=== PATIENT | male | born 1965 ===

== ENCOUNTER 2020-04-13 16:44 | Outpatient (REF) | payer OTHER, SELFPAY | END 2020-04-13 16:45 | disposition home or self-care (01) | LOC: HO.LAB 16:44 | PROVIDERS: PCP Internal Medicine; Visit Provider Internal Medicine | DX: Z20.828 Contact with and (suspected) exposure to other viral communicable diseases (principal) | CPT/HCPCS: C9803; U0003 ==

== ENCOUNTER 2020-10-16 08:07 | Outpatient (REF) | payer OTHER, SELFPAY ==
--- NOTE | ~2020-10-16 | XR_ITS ---
EXAMINATION: XR SHOULDER, RIGHT CLINICAL INFORMATION: Pain COMPARISON: Previous x-ray December 2016 TECHNIQUE: Three views of the right shoulder. FINDINGS: Bone alignment is normal. No fracture or dislocation is seen. The glenohumeral joint is normal. There is mild arthritis at the acromioclavicular joint. Soft tissues are unremarkable. XR/XR shoulder RT min 2V IMPRESSION: Mild arthritis at the acromioclavicular joint.
== END 2020-10-16 08:08 | disposition home or self-care (01) ==
LOC: HO.HOSX 08:07
PROVIDERS: Visit Provider Orthopaedic Surgery
DX: M75.101 Unspecified rotator cuff tear or rupture of right shoulder, not specified as traumatic (principal)
CPT/HCPCS: 73030; 99202

== ENCOUNTER 2020-11-27 02:54 | Emergency (ER) | payer OTHER, SELFPAY ==
[2020-11-27 04:07] VITALS: BP 113/67; PULSE 69; RESP 18; TEMP 37.1; O2SAT 100; BMI 23.9
[2020-11-27 05:48] LABS: MANUAL DIFF FLAG NO
[2020-11-27 05:50] LABS: Basophils Absolute Auto 0.1 X10*3/uL (0.0-0.2); Basophils Percent Auto 0.6 % (0-2); Eosinophils Absolute Auto 0.5 X10*3/uL (0.0-0.4); Eosinophils Percent Auto 5.5 % (0-4); Hematocrit 42.7 % (42-52); Hemoglobin 14.3 g/dl (14.0-18.0); Imm Gran Abs Auto 0.04 X10*3/uL (0.00-0.03); Imm Gran Pct Auto 0.5 % (0.0-0.4); Lymphocytes Absolute Auto 2.6 X10*3/uL (1.2-4.9); Lymphocytes Percent Auto 30.4 % (20-40); Mean Corpuscular HGB Conc 33.5 g/dl (31.0-36.0); Mean Corpuscular Hemoglobin 29.5 pg (27.0-33.0); Mean Platelet Volume 9.1 fL (9.4-12.4); Monocytes Absolute Auto 1.3 X10*3/uL (0.1-1.2); Monocytes Percent Auto 15.3 % (2-11); Neutrophils Absolute Auto 4.1 X10*3/uL (2.0-8.3); Neutrophils Percent Auto 47.7 % (45-73); Platelet Count 334 X10*3/uL (160-400); Red Blood Count 4.85 X10*6/uL (4.60-5.80); Red Cell Distribution Width 13.2 % (11.0-16.0); White Blood Count 8.6 X10*3/uL (4.8-10.8)
[2020-11-27 06:13] LABS: Alanine Aminotransferase 31 U/L (0-40); Albumin Level 4.3 g/dL (3.5-5.0); Alkaline Phosphatase 65 U/L (39-117); Anion Gap 12 (12-20); Aspartate Amino Transferase 13 U/L (5-37); Bilirubin Direct 0.3 mg/dL (0.0-0.5); Bilirubin Total 0.9 mg/dL (0.0-1.0); Blood Urea Nitrogen 14 mg/dL (9-16); Calcium 9.5 mg/dL (8.4-10.2); Carbon Dioxide 28 mmol/L (22-29); Chloride 102 mmol/L (96-108); Creatinine Clr Calc Pharmacy 94.1; Estimated Glomerular Filt Rate > 60; Glucose Random 93 mg/dL (60-115); Lipase 40 U/L (8-78); Potassium 4.3 mmol/L (3.3-5.1); Sodium 138 mmol/L (135-145); Total Protein 6.8 g/dL (6.5-8.0)
== END 2020-11-27 06:32 | disposition left against medical advice (07) ==
PROVIDERS: Emergency Provider Emergency Medicine; PCP Internal Medicine
DX: R10.9 Unspecified abdominal pain (principal)
CPT/HCPCS: 36415; 80053; 80076; 82248; 83690; 85025; 99282; 99283

== ENCOUNTER 2020-11-27 14:49 | Outpatient (REF) | payer OTHER, SELFPAY ==
--- NOTE | ~2020-11-27 | XR_ITS ---
EXAMINATION: XR ABDOMEN KUB CLINICAL INDICATION: Left upper quadrant pain COMPARISON: Previous CT of the abdomen and pelvis January 2020 TECHNIQUE: AP view of the abdomen. FINDINGS: There is stool throughout the colon suggestive of constipation. There are no dilated loops of bowel to suggest obstruction. There is no evidence of free air. There is a stable left pelvic calcification probably representing a calcified phlebolith or bony structures are unremarkable. XR/XR KUB IMPRESSION: Stool throughout the colon suggestive of constipation. Otherwise unremarkable exam.
== END 2020-11-27 14:50 | disposition home or self-care (01) ==
LOC: HO.XRAY 14:49
PROVIDERS: PCP Internal Medicine; Visit Provider Internal Medicine
DX: R10.12 Left upper quadrant pain (principal)
CPT/HCPCS: 74018

== ENCOUNTER 2020-12-26 07:55 | Outpatient (REF) | payer OTHER, SELFPAY ==
--- NOTE | ~2020-12-26 | CT_ITS ---
EXAMINATION: CT ABDOMEN AND PELVIS WITH CONTRAST CLINICAL INFORMATION: Left upper quadrant pain. COMPARISON: None TECHNIQUE: Multidetector volumetric images were obtained from the superior aspect of the liver through the pubic symphysis following administration 85 mL of Omnipaque 350 intravenous contrast. Sagittal and coronal reformatted images were obtained on the technologist's workstation. Oral contrast: No This CT examination was performed using dose optimization techniques as appropriate, variously including the following: *Automated exposure control *Adjustment of mA and/or kV according to patient size (this includes techniques or standardized protocols for targeted exams where dose is matched to indication/reason for exam; i.e. extremities or head) *Use of iterative reconstruction technique DLP: 418 mGy-cm FINDINGS: LUNG BASES: At the posterior right base, there is a tiny benign, calcified granuloma. The lung bases are otherwise clear. LIVER, GALLBLADDER, AND BILIARY TREE: The liver is normal in size, shape, and attenuation. No focal hepatic lesion or biliary ductal dilatation is present. The gallbladder is unremarkable with no evidence of radiopaque gallstones, gallbladder wall thickening, or obvious pericholecystic inflammatory changes. PANCREAS: Unremarkable. SPLEEN: Unremarkable. ADRENAL GLANDS: Unremarkable. KIDNEYS AND URETERS: The kidneys are normal in size, shape, and attenuation. No hydronephrosis, hydroureter, or calculi seen. There are low-attenuation bilateral renal cysts again seen. No perinephric stranding. BLADDER: There is slight dependent, layering intravenous contrast or debris (3:73). Otherwise, unremarkable. GASTROINTESTINAL TRACT: There is a moderate stool burden. No bowel obstruction, free intraperitoneal air or abscess is seen. There is no focal bowel wall thickening. The vermiform appendix is is not identified with certainty; however, there is no finding to suggest appendicitis. No significant diverticulosis or diverticulitis is seen. Within the leftward pelvis (5:45 and 3:71), there is a 1.1 cm peripherally calcified focus of probable chronic mesenteric fat necrosis. This is of doubtful clinical significance. ABDOMINAL WALL: No significant hernia is appreciated. LYMPH NODES: No sizable abdominopelvic lymphadenopathy is seen. VASCULAR: There is mild aortoiliac atherosclerotic calcifications. No abdominal aortic aneurysm is seen. PELVIC VISCERA: The prostate and seminal vesicles are unremarkable. OSSEOUS STRUCTURES: Unremarkable. CT/CT abdomen pelvis w con IMPRESSION: There is a moderate stool burden, suggesting possible constipation. No bowel obstruction, free intracranial air or abscess is seen. The vermiform appendix is not identified, there is no finding to suggest acute appendicitis. No diverticulosis or diverticulitis is seen. 2. No urinary calculus or obstructive uropathy seen bilaterally. 3. There is no abdominopelvic mass, free fluid or lymphadenopathy.
[2020-12-26] MEDS: iohexoL 350 MG/ML 100 ML INFUS..BTL 85 ML IV (10:28)
== END 2020-12-26 07:56 | disposition home or self-care (01) ==
LOC: HO.CT 07:55
PROVIDERS: Visit Provider Internal Medicine
DX: R10.12 Left upper quadrant pain (principal)
CPT/HCPCS: 74177; Q9967

== ENCOUNTER → 2021-01-01 08:01 | Outpatient (BNVA) | payer OTHER, SELFPAY | PROVIDERS: PCP Internal Medicine; Visit Provider Orthopaedic Surgery | DX: M25.511 Pain in right shoulder (principal); M75.101 Unspecified rotator cuff tear or rupture of right shoulder, not specified as traumatic | CPT/HCPCS: 20610; 99212; J1100 ==

== ENCOUNTER 2021-07-03 12:48 | Inpatient (IN) | payer OTHER, SELFPAY ==
--- NOTE | ~2021-07-03 | CT_ITS ---
EXAMINATION: CT ABDOMEN AND PELVIS WITH CONTRAST CLINICAL INFORMATION: Abdominal pain and distention COMPARISON: CT abdomen pelvis 12/26/2020 TECHNIQUE: Multidetector volumetric images were obtained from the superior aspect of the liver through the pubic symphysis following administration 85 mL of Omnipaque 350 intravenous contrast. Sagittal and coronal reformatted images were obtained on the technologist's workstation. Oral contrast: No This CT examination was performed using dose optimization techniques as appropriate, variously including the following: *Automated exposure control *Adjustment of mA and/or kV according to patient size (this includes techniques or standardized protocols for targeted exams where dose is matched to indication/reason for exam; i.e. extremities or head) *Use of iterative reconstruction technique DLP: 409 mGy-cm FINDINGS: LUNG BASES: The visualized lung bases are unremarkable. LIVER, GALLBLADDER, AND BILIARY TREE: The liver is normal in size, shape, and attenuation. Again seen is a 2 cm enhancing mass, unchanged from prior studies, most likely a hemangioma which has been seen on studies dating back to at least 2014. No worrisome focal hepatic lesion or biliary ductal dilatation is present. The gallbladder is unremarkable with no evidence of radiopaque gallstones, gallbladder wall thickening, or obvious pericholecystic inflammatory changes. PANCREAS: Unremarkable. SPLEEN: Unremarkable. ADRENAL GLANDS: Unremarkable. KIDNEYS AND URETERS: The kidneys are normal in size, shape, and attenuation. Bilateral renal cysts are present, unchanged. No further imaging or follow-up is needed. No solid renal masses. No hydronephrosis, hydroureter, or calculi seen. No perinephric stranding. BLADDER: Unremarkable. GASTROINTESTINAL TRACT: There is dilatation of proximal small bowel with completely decompressed distal. There appears to be a transition zone between dilated and nondilated small bowel seen anteriorly just behind the abdominal wall (see saved [place] images). The large bowel is unremarkable. The appendix is none seen. 2 foci of mesenteric fat necrosis are again redemonstrated. ABDOMINAL WALL: No significant hernia is appreciated. LYMPH NODES: No retroperitoneal lymphadenopathy. VASCULAR: Unremarkable. PELVIC VISCERA: Unremarkable. OSSEOUS STRUCTURES: Unremarkable. CT/CT abdomen pelvis w con IMPRESSION: Evidence of small bowel obstruction with a transition zone appearing to be in the mid abdomen just the abdominal wall but a precise lesion or abnormality is not seen. Continued follow-up is recommended. No other finding of note is seen. Fleischner guidelines were followed.
--- NOTE | ~2021-07-03 | XR_ITS ---
EXAMINATION: XR CHEST CLINICAL INFORMATION: Enteric tube placement. COMPARISON: Chest radiograph dated from 10/21/2016. TECHNIQUE: AP view of the chest was obtained. FINDINGS: Enteric tube courses into the stomach and terminates outside of the field of view. Normal appearance of the cardiomediastinal silhouette. Increase interstitial markings bilaterally, more noticeable in the lower lungs. No focal consolidation, pleural effusion or pneumothorax. No acute osseous abnormalities. Visualized upper abdomen is within normal limits. XR/XR chest 1V IMPRESSION: Enteric tube courses into the stomach and terminates outside of the field of view. Increased interstitial markings is a nonspecific finding that could be associated with asthma, bronchitis, reactive airways disease or atypical viral infections.
[2021-07-03 13:17] VITALS: BP 117/86; PULSE 76; RESP 18; TEMP 36.6; O2SAT 99; BMI 24.2
[2021-07-03 14:16] LABS: Hematocrit 49.1 % (42.0-52.0); Hemoglobin 16.6 g/dl (14.0-18.0); Mean Corpuscular HGB Conc 33.8 g/dl (31.0-36.0); Mean Corpuscular Hemoglobin 29.7 pg (27.0-33.0); Mean Platelet Volume 8.9 fL (9.4-12.4); Platelet Count 367 X10*3/uL (160-400); Red Blood Count 5.58 X10*6/uL (4.60-5.80); Red Cell Distribution Width 12.7 % (11.0-16.0); White Blood Count 13.3 X10*3/uL (4.8-10.8)
[2021-07-03 14:32] LABS: Anion Gap 11 (12-20); Blood Urea Nitrogen 9 mg/dL (9-16); Calcium 10.5 mg/dL (8.4-10.2); Carbon Dioxide 31 mmol/L (22-29); Chloride 99 mmol/L (96-108); Creatinine Clr Calc Pharmacy 90.7; Estimated Glomerular Filt Rate > 60; Glucose Random 178 mg/dL (60-115); Lipase 29 U/L (8-78); Sodium 136 mmol/L (135-145)
--- NOTE | 2021-07-03 17:37 | ED.ABDPAIN ---
HPI - Abdominal Pain General Chief Complaint: Abdominal Pain Stated Complaint: Stomach Pain Time Seen by Provider: 07/03/21 14:30 Source: patient Mode of arrival: ambulatory Limitations: no limitations History of Present Illness HPI narrative: 55-year-old male who presents emergency department for evaluation abdominal pain, constipation abdominal distension. The patient states that he did not feel well this morning when he woke up. He drinks coffee and then had a gradual onset of abdominal pain and distension. He states that the pain is located diffusely throughout his abdomen. He describes the pain as a burning sensation which waxes and wanes in intensity. He states the pain is greater than 10/10 at its worse and is currently 5/10. He has had associated nausea with no vomiting. He has had no bowel movement in 2 days. The patient states he has had 9 surgeries on his abdomen. He states that it was in [place] any had a record bowel (possibly secondary to diverticulitis), he got a bad infection, he states that he had multiple surgeries. Since that time he has had several bowel obstructions with his last bowel obstruction being in March of 2021. States the symptoms today feel like a bowel obstruction. Patient is vaccinated for COVID-19. He received the [employer] vaccination to initial vaccines and a booster vaccine. He has not had a COVID-19 infection. MD elicited complaint: abdominal pain Pertinent past history: diverticulitis and other (Multiple surgeries, bowel obstructions) Onset (ago): hour(s) (10) Pain Consistency: colicky (Waxes and wanes in intensity) Location: diffuse and periumbilical Severity: severe Pain scale (0-10): 10 Quality: burning Radiation: none Migration to: no migration Exacerbating factors: eating Relieving factors: nothing Context: history of similar episodes (Multiple bowel obstructions in the past) Associated symptoms: nausea and constipation Related Data Home Medications Medication Instructions Recorded Confirmed blood-glucose meter #1 ea 03/29/20 04/10/21 Previous Rx's Medication Instructions Recorded atorvastatin 40 mg tablet 40 mg PO DAILY #90 tab 02/05/21 metformin 1,000 mg tablet 1,000 mg PO BID #180 tab 03/20/21 lisinopril 2.5 mg tablet 2.5 mg PO DAILY 90 Days #90 tab 05/22/21 tramadol 50 mg tablet 50 mg PO Q6H PRN #120 tab 06/18/21 Allergies Allergy/AdvReac Type Severity Reaction Status Date / Time No Known Allergies Allergy Verified 07/03/21 19:24 Review of Systems Review of Systems Yes all other systems are reviewed and are negative [facility] Past Medical History Source: unable to obtain Medical History (Updated 07/04/21 @ 02:08 by Kyler Charlton MD) Abdominal pain, left upper quadrant Controlled diabetes mellitus without complication, without long-term current use of insulin Diverticulitis Diverticulosis Essential hypertension Hyperlipidemia LDL goal <100 Right shoulder pain Small bowel obstruction due to adhesions Surgical History History of colostomy reversal History of incisional hernia repair Family History Family History Father CVD (cardiovascular disease) Mother CVD (cardiovascular disease) Diabetes Social History Social History Household Members: Spouse and Children Housing: Apartment Alcohol intake: former Patient Tobacco Use Status: Former Tobacco user Tobacco use type: Cigarette e-Cigarette/Vaping Use: Never Used Second Hand Smoke Exposure: No Use of substances other than those prescribed or required for medical reasons: No Advance Directives: No Advance Directives Information Provided: No service: No Current occupational status: employed Current occupational exposures/hazards: No Physical Exam ED Vital Signs: Vital Signs - 24 hr 07/03/21 13:17 07/03/21 17:45 07/03/21 18:27 Temperature 98 F 99.4 F Pulse Rate 76 77 74 Respiratory Rate 18 16 16 Blood Pressure 117/86 126/73 129/67 Pulse Oximetry 99 99 07/03/21 19:25 Temperature 98.8 F Pulse Rate 81 Respiratory Rate 17 Blood Pressure 141/70 H Pulse Oximetry 99 BMI result Body Mass Index 24.2 Const General: cooperative and no acute distress Orientation/consciousness: oriented to person and oriented to place Limitations: no limitations HENMT Head: Yes normal to inspection, Yes normocephalic and Yes atraumatic Ears: external ears normal General nose exam: Normal external nose present Face and sinus: Yes normal facial exam Mouth: Normal oral and palatal mucosa present Throat: Yes posterior oropharynx normal Eyes General: appearance normal, both eyes and all related structures Pupils: Equal, round and reactive pupils present Neck Neck: Yes normal visual inspection, Yes no lymphadenopathy, Yes trachea midline and Yes supple Chest Chest palpation & inspection: normal inspection of the chest and normal palpation of entire chest wall Resp Effort & Inspection: normal respiratory effort and able to speak in complete sentences Auscultation: clear to auscultation bilaterally Cardio Rate: regular rate Rhythm: regular rhythm Heart sounds: S1 normal heart sound present, S2 normal heart sound present and no murmurs GI Inspection: Yes normal to inspection and Yes distended Palpation (GI): Soft to palpation, Tenderness to palpation present (GI) (Moderate, diffuse) and no guarding Auscultation: High-pitched bowel sounds present General: Yes no CVA tenderness Back/Spine/Pelvis Back: no CVA tenderness Skin General skin exam: no rashes or lesions noted Neuro General: oriented to person and oriented to place Cranial nerves: Yes CN's II-XII intact bilaterally and Yes Equal, round and reactive pupils present Cognition (Neuro): normal cognition Motor exam (neuro): 5/5 motor strength present throughout Extrem General: Yes normal to inspection Psych Appearance: grossly normal Speech and movement: Normal speech and movement present Affect: normal affect Attitude: cooperative Thought process: Normal thought process present Thought content: Normal thought content present Course Course Course Narrative: 55-year-old male who presents emergency department for evaluation of abdominal pain, abdominal distension since this morning and no bowel movement x2 days. The patient reports that he has had 9 surgeries after having a ruptured bowel most likely secondary to diverticulitis and has had multiple bowel obstructions. Initial event occurred when he was in [place]. The patient states his last bowel obstruction was in March of 2021 and he believes his symptoms today feel similar to his bowel obstructions. Vital signs were normal. Examination revealed distended abdomen with high-pitched bowel sounds and diffuse abdominal tenderness with increased tenderness over the umbilical area. Laboratory evaluation was ordered patient he will be treated with normal saline x2 L, morphine 4 mg IV and Zofran [address] scan of the abdomen pelvis with IV contrast will also be obtained. 2046: The patient required a total of morphine 4 mg IV x3 and Zofran 4 mg IV x2 for his pain with some improvement of his symptoms CT scan of the abdomen pelvis with IV contrast is consistent with a small-bowel obstruction. Patient's presentation findings repair discussed over tiger text with the covering general surgeon, Dr. Zheng. He recommended NG tube to low wall suction and he will admit the patient to his service for further management. Patient's laboratory evaluation was unremarkable. 2051: NG tube was placed by the ED nurse. X-ray confirms at the NG tube is in the GI tract, possibly in the stomach or just beyond the stomach. MDM - Abdominal Pain Lab Data Result diagrams: 07/03/21 14:11 07/03/21 14:11 Labs: Lab Results 07/03/21 07/03/21 07/03/21 Range/Units 14:11 14:11 19:32 WBC 13.3 H (4.8-10.8) X10*3/uL RBC 5.58 (4.60-5.80) X10*6/uL Hgb 16.6 (14.0-18.0) g/dl Hct 49.1 (42.0-52.0) % MCV 88.0 (80.0-98.0) fL MCH 29.7 (27.0-33.0) pg MCHC 33.8 (31.0-36.0) g/dl RDW 12.7 (11.0-16.0) % Plt Count 367 (160-400) X10*3/uL MPV 8.9 L (9.4-12.4) fL Absolute Nucleated RBC 0.000 (0.0-0.012) X10*3/uL Nucleated RBC % (auto) 0.0 (0.0-0.2) /100WBC Sodium 136 (135-145) mmol/L Potassium 5.0 (3.3-5.1) mmol/L Chloride 99 (96-108) mmol/L Carbon Dioxide 31 H (22-29) mmol/L Anion Gap 11 L (12-20) BUN 9 (9-16) mg/dL Creatinine 0.83 (0.5-1.4) mg/dL Estim Creat Clear Calc 90.7 Estimated GFR > 60 Random Glucose 178 H D (60-115) mg/dL Calcium 10.5 H D (8.4-10.2) mg/dL Total Bilirubin 0.7 (0.0-1.0) mg/dL Direct Bilirubin 0.3 (0.0-0.5) mg/dL AST 12 (5-37) U/L ALT 40 (0-40) U/L Alkaline Phosphatase 64 (39-117) U/L Total Protein 7.3 (6.5-8.0) g/dL Albumin 4.7 (3.5-5.0) g/dL Lipase 29 (8-78) U/L Urine Color YELLOW Urine Appearance CLEAR Urine pH 7.0 (5.0-8.0) Ur Specific [place] <= 1.005 (1.005-1.025) Urine Protein TRACE (NEG-TRACE) MG/DL Urine Glucose (UA) NEG (NEG) MG/DL Urine Ketones NEG (NEG) MG/DL Urine Blood NEG (NEG) Urine Nitrite NEG (NEG) Ur Leukocyte Esterase NEG (NEG) Discharge Plan Discharge Clinical Impression: Small bowel obstruction due to adhesions, Abdominal pain Patient Disposition: Admitted As Inpatient
[2021-07-03 17:45] VITALS: BP 126/73; PULSE 77; RESP 16; TEMP 37.4; O2SAT 99
[2021-07-03] MEDS: 0.9 % Sodium Chloride 1,000 ML 999 ML IV (17:52)
[2021-07-03] MEDS: Morphine Sulfate 4 MG/ML CARTRIDGE IVPUSH ×3 (17:52→19:29)
[2021-07-03] MEDS: ondansetron HCL 4 MG/2 ML VIAL IVPUSH ×2 (17:52→19:28)
[2021-07-03 17:54] LABS: Alanine Aminotransferase 40 U/L (0-40); Albumin Level 4.7 g/dL (3.5-5.0); Alkaline Phosphatase 64 U/L (39-117); Aspartate Amino Transferase 12 U/L (5-37); Bilirubin Direct 0.3 mg/dL (0.0-0.5); Bilirubin Total 0.7 mg/dL (0.0-1.0); Total Protein 7.3 g/dL (6.5-8.0)
[2021-07-03] MEDS: iohexoL 350 MG/ML 100 ML INFUS..BTL IV (18:16)
[2021-07-03 18:27] VITALS: BP 129/67; PULSE 74; RESP 16
[2021-07-03 19:25] VITALS: BP 141/70; PULSE 81; RESP 17; TEMP 37.1; O2SAT 99
--- NOTE | 2021-07-03 19:37 | PC.NURSE ---
Addendum entered by Priyanka Ferrell 07/03/21 19:42: Dr Charlton aware of pt's reports of urinary difficulties. Original Note: This RN to bedside for this RN's initial eval. Pt aaox4, resting on stretcher in NAD, breathing with ease on RA. VSS. Pt reports abd pain is 10/10 at this time, states it had decreased to 8/10 after admin of medication but has since returned to 10/10. Pt medicated per JUL. Pt urine sent to lab for processing, reports when I was peeing, I felt some pressure build up and then I felt like it popped all of a sudden and then I peed some more. Pt endorses hx of kidney stone. This RN strained pt's urine but did not identify presence of stone. Pt reports some burning in urethra at this time. Awaiting UA results. Pt stretcher in low locked position, rails raised, call crawford within reach. Awaiting dispo.
[2021-07-03 19:42] LABS: Appearance Urine CLEAR; Color Urine YELLOW; Glucose Urine UA NEG (NEG); Leukocyte Esterase Urine NEG (NEG); Nitrite Urine NEG (NEG); Specific Gravity - Urine <= 1.005 (1.005-1.025); Urine Blood NEG (NEG); Urine Ketones NEG (NEG); Urine Protein TRACE MG/DL (NEG-TRACE)
--- NOTE | 2021-07-03 20:27 | PHA.MEDREC ---
Pharmacy Consult ? Medication Reconciliation Pharmacy has completed the medication reconciliation.
--- NOTE | 2021-07-03 20:32 | PM.HPGS ---
History of Present Illness History of Present Illness Date of Service: 07/04/21 Chief complaint: Small Bowel Obstruction Narrative: Ismael Corbin is a 55 year old male Presenting with recurrence small-bowel obstruction. He reports a previous history of sigmoid diverticulitis with perforation. He underwent a Camryn's procedure with colostomy in the left lower quadrant In 2002. He has had multiple small bowel obstructions which reports every 4-5 months presenting with abdominal pain, distension, nausea and vomiting. The current episode in a similar fashion and was associated with abdominal pain, nausea and vomiting. His last bowel movement was approximately 3 days ago. This morning he reports abdominal pain is improved and he is passing flatus. He denies any further nausea or vomiting. Review of Systems Constitutional: Constitutional: Denies chills, Denies fever(s), Denies headache(s) and Reports poor appetite ENT: Denies dizziness and Denies headache(s) Cardiovascular: Cardiovascular: Denies chest pain, Denies rapid heart rate, Denies palpitations and Denies slow heart rate Respiratory: Respiratory: Denies chest congestion, Denies cough, Denies pain on inspiration and Denies wheezing Gastrointestinal: Gastrointestinal: Reports abdominal pain, Reports bloating, Denies change in stool character, Denies constipation, Denies diarrhea, Reports nausea, Reports vomiting and Denies hematemesis Musculoskeletal: Musculoskeletal: Denies back pain, Denies arthralgias, Denies joint swelling and Denies numbness Integumentary/Breasts: Skin/Breast: Denies change in pigmentation, Denies erythema and Denies rash Neurologic: Denies dizziness, Denies headache(s) and Denies numbness Psychiatric: Psychiatric: Denies anxiety and Denies depression Endocrine: Endocrine: Denies palpitations Hematologic/Lymphatic: Hematologic/Lymphatic: Denies easy bleeding, Denies easy bruising and Denies lymphadenopathy Allergic/Immunologic: Allergic/Immunologic: Denies wheezing PMFSH Past Medical History Medical History Abdominal pain, left upper quadrant Controlled diabetes mellitus without complication, without long-term current use of insulin Diverticulitis Diverticulosis Essential hypertension Hyperlipidemia LDL goal <100 Right shoulder pain Small bowel obstruction due to adhesions Family History Family History Father CVD (cardiovascular disease) Mother CVD (cardiovascular disease) Diabetes Surgical History Surgical History History of colostomy reversal History of incisional hernia repair Social History Social History Household Members: Spouse and Children Housing: Apartment Alcohol intake: former Patient Tobacco Use Status: Former Tobacco user Tobacco use type: Cigarette e-Cigarette/Vaping Use: Never Used Second Hand Smoke Exposure: No Use of substances other than those prescribed or required for medical reasons: No Advance Directives: No Advance Directives Information Provided: No service: No Current occupational status: employed Current occupational exposures/hazards: No Meds Allergies Allergy/AdvReac Type Severity Reaction Status Date / Time No Known Allergies Allergy Verified 07/03/21 19:24 Active Medications: Current Medications Dextrose (Dextrose 50 % 25 Gm/50 Ml Syringe) 25 gm IVPUSH Q15M PRN; Protocol PRN Reason: per Hypoglycemia Standing Ord. Enoxaparin Sodium (Enoxaparin Sodium 40 Mg/0.4 Ml Syringe) 40 mg SUBCUT Q24H KIERA Glucose (Glucose Gel 15 Gm Gel..Gram.) 15 gm PO Q15M PRN; Protocol PRN Reason: per Hypoglycemia Standing Ord. Hydromorphone HCl (Hydromorphone Hcl 1 Mg/Ml Syringe) 0.5 mg IVPUSH Q3H PRN; Protocol PRN Reason: Pain, Severe (Pain Scale 7-10) Acetaminophen (Ofirmev) 1,000 mg in 100 mls @ 400 mls/hr IV Q6H PRN PRN Reason: Pain, Moderate (Pain Scale 4-6 Lactated Ringer's (Lr) 1,000 mls @ 125 mls/hr IVCONT .Q8H KIERA Insulin Human Lispro (Insulin Lispro 100 Unit/Ml 3 Ml Vial) 0 unit SUBCUT QIDACHS KIERA; Protocol Stop: 07/04/21 20:20 Last Admin: 07/03/21 20:30 Dose: Not Given Documented by: Ondansetron HCl (Ondansetron Hcl 4 Mg/2 Ml Vial) 4 mg IVPUSH Q8H PRN PRN Reason: Nausea Oxycodone HCl (Oxycodone Hcl Immed Release 5 Mg Tablet) 5 mg PO Q6H PRN PRN Reason: Pain, Moderate (Pain Scale 4-6 Pharmacy Consult (Consult Rx Perform Med Rec) 1 each MISCELLANE ONCE PRN PRN Reason: Consult order Sodium Chloride (0.9 % Sodium Chloride Flush 3 Ml Syringe) 3 ml IVFLUSH QSHIFT [facility] Zolpidem Tartrate (Zolpidem Tartrate 5 Mg Tablet) 5 mg PO BEDTIME PRN PRN Reason: Insomnia Home Medications Medication Instructions Recorded Confirmed Last Taken Type blood-glucose meter #1 ea 03/29/20 04/10/21 Unknown History Physical Exam Vital Signs: Vital Signs: Last Vital Signs Temp 98.8 F 07/03/21 19:25 Pulse 81 07/03/21 19:25 Resp 17 07/03/21 19:25 BP 141/70 H 07/03/21 19:25 Pulse Ox 99 07/03/21 19:25 BMI result Body Mass Index 24.2 Const: General: cooperative, comfortable and well developed Nutritional Appearance: well nourished Orientation/consciousness: patient oriented x3 HENMT: Other: NG tube in place, functioning well Head: Yes normocephalic and Yes atraumatic Eyes: Sclerae: sclerae normal EOM: EOMs intact bilaterally Neck: Neck: Yes normal visual inspection Resp: Effort & Inspection: normal respiratory effort, no cough, no respiratory distress and no stridor Cardio: Jugular venous distension: no JVD GI: Inspection: Yes normal to inspection Palpation (GI): Soft to palpation, nontender, no guarding and not rigid Percussion: Yes tympanic to percussion Auscultation: normal bowel sounds Rectal Exam - Male: Yes deferred Skin: General skin exam: dry skin Rashes: no rashes Neuro: General: patient oriented x3 and no focal motor deficits Extrem: General: Yes full ROM and Yes no clubbing, cyanosis or edema Psych: Appearance: grossly normal Results Results Labs: Short CBC 07/03/21 Range/Units 14:11 WBC 13.3 H (4.8-10.8) X10*3/uL Hgb 16.6 (14.0-18.0) g/dl Hct 49.1 (42.0-52.0) % Plt Count 367 (160-400) X10*3/uL BMP 07/03/21 14:11 Sodium 136 Potassium 5.0 Chloride 99 Carbon Dioxide 31 H BUN 9 Creatinine 0.83 Calcium 10.5 H D Liver Function 07/03/21 Range/Units 14:11 Total Bilirubin 0.7 (0.0-1.0) mg/dL Direct Bilirubin 0.3 (0.0-0.5) mg/dL AST 12 (5-37) U/L ALT 40 (0-40) U/L Alkaline Phosphatase 64 (39-117) U/L Albumin 4.7 (3.5-5.0) g/dL Urine 07/03/21 Range/Units 19:32 Urine Color YELLOW Urine Appearance CLEAR Urine pH 7.0 (5.0-8.0) Ur Specific [place] <= 1.005 (1.005-1.025) Urine Protein TRACE (NEG-TRACE) MG/DL Urine Glucose (UA) NEG (NEG) MG/DL Assessment and Plan (1) Abdominal pain, left upper quadrant: Status: Acute (2) Small bowel obstruction due to adhesions: Status: Acute (3) Controlled diabetes mellitus without complication, without long-term current use of insulin: Qualifiers: Diabetes mellitus type: type 2 Qualified Code(s): E11.9 - Type 2 diabetes mellitus without complications Status: Acute Plan 55-year-old male patient presenting with a recurrent small-bowel obstruction following previous colon surgery for perforated diverticulitis. Patient is being treated non operatively with nasogastric tube decompression, IV fluids, and bowel rest. This morning he does feel improved with some passing of flatus. He denies a bowel movement. Plan: NPO NGT, CXR for tube placement verification IVFs Insulin sliding scale Hospitalist consult Recheck cbc and bmp in AM Quality Stroke Does the patient have a stroke diagnosis?: No VTE Prior VTE?: No VTE Risk Level:: Surgical - moderate VTE Device Contraindication: N/A - Device Ordered VTE Drug Contraindication: N/A - Med Ordered Procedures Date of Service Date of Service: 07/04/21
[2021-07-03 20:55] VITALS: BP 142/82; PULSE 79; RESP 18; O2SAT 98
[2021-07-03] MEDS: Lactated Ringers 1,000 ML 999 ML IV (21:01)
[2021-07-03] MEDS: Lactated Ringers 1,000 ML 125 ML IVCONT (21:02)
[2021-07-03] MEDS: Enoxaparin Sodium 40 MG/0.4 ML SYRINGE SUBCUT (21:18)
[2021-07-03] MEDS: HYDROmorphone HCl 1 MG/ML SYRINGE 0.5 MG IVPUSH ×2 (21:18→23:53)
[2021-07-03 22:00] LABS: Glucose, Whole Blood 138 mg/dL (60-115)
--- NOTE | 2021-07-03 23:40 | PC.NURSE ---
Pt rang call crawford and reports HURT, throat discomfort r/t to NGT, and persistent abd pain. Pt reports abd pain is severe, but is not yet due for more dilaudid for another hour. This RN TT Dr Smith to notify him of pt's complaints and this RN requested additional/change in orders. Awaiting reply/intervention.
--- NOTE | 2021-07-03 23:46 | PC.NURSE ---
Per Dr Zheng TT He could get the dilaudid now and add chloraceptic spray for his throat. Then, Can you place the order as a verbal, thank you. This RN to medicate with dilaudid and this RN placed chloraceptic per v/o
[2021-07-03 23:52] VITALS: BP 135/75; PULSE 79; RESP 18; O2SAT 97
--- NOTE | 2021-07-04 | PC.NURSE ---
This RN notifies Dr Charlton of pt's c/o nasal and throat pain r/t NGT and Dr Zheng's orders for chloraseptic spray. Dr Charlton recommends lidocaine to swish and spit. This RN awaiting orders.
--- NOTE | 2021-07-04 00:13 | PC.NURSE ---
Dr Charlton informed this RN to contact RT and ask if RT is able to nebulize lidocaine. Fam RT states he is able to do that. Dr Charlton to order nebulized lido.
[2021-07-04] MEDS: Lidocaine HCl 4 % MPF 5 ML AMPUL 3 ML INHALE (00:52)
[2021-07-04 00:56] VITALS: PULSE 78; RESP 16; O2SAT 95
[2021-07-04 01:33] LABS: COVID-19 Test Negative (Negative)
[2021-07-04] MEDS: Lactated Ringers 1,000 ML 125 ML IVCONT (04:07)
--- NOTE | 2021-07-04 04:22 | PC.NURSE ---
Pt rang in to report that while he's been sleeping, he believes he has been passing gas. Pt also reports improvement in abd pain but states it is still present, about a /10 rather than 10/. Pt reports throat discomfort and headache are returning as well.
[2021-07-04] MEDS: HYDROmorphone HCl 1 MG/ML SYRINGE 0.5 MG IVPUSH ×2 (04:28→07:18)
[2021-07-04 04:30] VITALS: BP 143/80; PULSE 73; RESP 17; O2SAT 96
[2021-07-04 07:10] VITALS: BP 126/69; PULSE 71; RESP 17; TEMP 37; O2SAT 96
[2021-07-04 07:14] LABS: Glucose, Whole Blood 120 mg/dL (60-115)
[2021-07-04 07:21] LABS: MANUAL DIFF FLAG NO
[2021-07-04 07:27] LABS: Basophils Percent Auto 0.1 % (0-2); Eosinophils Absolute Auto 0.4 X10*3/uL (0.0-0.4); Eosinophils Percent Auto 4.9 % (0-4); Hematocrit 42.5 % (42.0-52.0); Hemoglobin 14.2 g/dl (14.0-18.0); Imm Gran Abs Auto 0.03 X10*3/uL (0.00-0.03); Imm Gran Pct Auto 0.3 % (0.0-0.4); Lymphocytes Absolute Auto 1.5 X10*3/uL (1.2-4.9); Lymphocytes Percent Auto 16.8 % (20-40); Mean Corpuscular HGB Conc 33.4 g/dl (31.0-36.0); Mean Corpuscular Hemoglobin 29.2 pg (27.0-33.0); Mean Corpuscular Volume 87.3 fL (80.0-98.0); Mean Platelet Volume 9.3 fL (9.4-12.4); Monocytes Absolute Auto 0.8 X10*3/uL (0.1-1.2); Neutrophils Absolute Auto 6.2 x10*3/uL (2.0-8.3); Neutrophils Percent Auto 68.9 % (45-73); Platelet Count 315 X10*3/uL (160-400); Red Blood Count 4.87 X10*6/uL (4.60-5.80); Red Cell Distribution Width 12.8 % (11.0-16.0)
--- NOTE | 2021-07-04 07:32 | PC.NURSE ---
resumed care of pt from nathaly han
[2021-07-04 07:48] LABS: Anion Gap 11 (12-20); Blood Urea Nitrogen 8 mg/dL (9-16); Calcium 9.1 mg/dL (8.4-10.2); Carbon Dioxide 29 mmol/L (22-29); Chloride 101 mmol/L (96-108); Creatinine Clr Calc Pharmacy 103.1; Estimated Glomerular Filt Rate > 60; Glucose Random 128 mg/dL (60-115); Potassium 4.3 mmol/L (3.3-5.1); Sodium 137 mmol/L (135-145)
--- NOTE | 2021-07-04 08:09 | HO.PM.IMCN ---
History of Present Illness Data of Consult Service Date: 07/04/21 Requesting physician: Elgin Zheng Primary Care Provider: Chary Francois MD HPI 55 year old man admitted to general surgery team for SBO. He has an extensive history of obstruction recurrence and diverticulitis with perforation. He presented with abd pain, nausea and vomiting and last BM was 3 days ago. His NGT was intact and draining brown liquid. He was very uncomfortable with the tube in place and stated that he wanted it taken out and that he was passing flatus. Review of Systems Review of Systems: Denies any recent fever chills or decrease in appetite respiratory denies any shortness of breath coverage production cardiovascular denies chest pain gastrointestinal denies any dysphagia abdominal pain nausea vomiting or diarrhea genitourinary denies any dysuria frequency or hematuria musculoskeletal denies any joint pain or swelling neuropsych denies any weakness or seizures all other systems reviewed are negative [facility] Medical History Abdominal pain, left upper quadrant Controlled diabetes mellitus without complication, without long-term current use of insulin Diverticulitis Diverticulosis Essential hypertension Hyperlipidemia LDL goal <100 Right shoulder pain Small bowel obstruction due to adhesions Family History Father CVD (cardiovascular disease) Mother CVD (cardiovascular disease) Diabetes Surgical History History of colostomy reversal History of incisional hernia repair Social History Household Members: Spouse and Children Housing: Apartment Alcohol intake: former Patient Tobacco Use Status: Former Tobacco user Tobacco use type: Cigarette e-Cigarette/Vaping Use: Never Used Second Hand Smoke Exposure: No service: No Current occupational status: disabled Current occupational exposures/hazards: No Meds Allergies Allergy/AdvReac Type Severity Reaction Status Date / Time No Known Allergies Allergy Verified 07/03/21 19:24 Active Medications: Current Medications Dextrose (Dextrose 50 % 25 Gm/50 Ml Syringe) 25 gm IVPUSH Q15M PRN; Protocol PRN Reason: per Hypoglycemia Standing Ord. Enoxaparin Sodium (Enoxaparin Sodium 40 Mg/0.4 Ml Syringe) 40 mg SUBCUT Q24H [facility] Last Admin: 07/03/21 21:18 Dose: 40 mg Documented by: Glucose (Glucose Gel 15 Gm Gel..Gram.) 15 gm PO Q15M PRN; Protocol PRN Reason: per Hypoglycemia Standing Ord. Hydromorphone HCl (Hydromorphone Hcl 1 Mg/Ml Syringe) 0.5 mg IVPUSH Q3H PRN; Protocol PRN Reason: Pain, Severe (Pain Scale 7-10) Last Admin: 07/04/21 07:18 Dose: 0.5 mg Documented by: Acetaminophen (irm) 1,000 mg in 100 mls @ 400 mls/hr IV Q6H PRN PRN Reason: Pain, Moderate (Pain Scale 4-6 Lactated Ringer's (Lr) 1,000 mls @ 125 mls/hr IVCONT .Q8H [facility] Last Admin: 07/04/21 04:07 Dose: 125 mls/hr Documented by: Insulin Human Lispro (Insulin Lispro 100 Unit/Ml 3 Ml Vial) 0 unit SUBCUT QIDACHS [facility]; Protocol Stop: 07/04/21 20:20 Last Admin: 07/04/21 07:19 Dose: Not Given Documented by: Multi-Ingred Medicated Throat [place] (Throat [place], Medicated 20 Ml Bottle) 1 spray MUCOUS MEM Q2H PRN PRN Reason: Sore Throat Ondansetron HCl (Ondansetron Hcl 4 Mg/2 Ml Vial) 4 mg IVPUSH Q8H PRN PRN Reason: Nausea Oxycodone HCl (Oxycodone Hcl Immed Release 5 Mg Tablet) 5 mg PO Q6H PRN PRN Reason: Pain, Moderate (Pain Scale 4-6 Pharmacy Consult (Consult Rx Perform Med Rec) 1 each MISCELLANE ONCE PRN PRN Reason: Consult order Sodium Chloride (0.9 % Sodium Chloride Flush 3 Ml Syringe) [facility] Last Admin: 07/04/21 07:19 Dose: Not Given Documented by: Zolpidem Tartrate (Zolpidem Tartrate 5 Mg Tablet) 5 mg PO BEDTIME PRN PRN Reason: Insomnia Home Medications Medication Instructions Recorded Confirmed Last Taken Type blood-glucose meter #1 ea 03/29/20 04/10/21 Unknown History Physical Exam Vital Signs and Narrative: Vital Signs: Last Vital Signs Temp 98.6 F 07/04/21 07:10 Pulse 71 07/04/21 07:10 Resp 17 07/04/21 07:10 BP 126/69 07/04/21 07:10 Pulse Ox 96 07/04/21 07:10 BMI result Body Mass Index 24.2 Appearing in no acute distress head is normocephalic atraumatic eyes pupils are PERRLA sclera is anicteric mouth throat mucous membranes are intact and moist neck is supple no lymphadenopathy, no JVD noted lung sounds are clear to auscultation heart regular rate rhythm, clear S1, S2 positive bowel sounds, abdomen is soft, nontender neuro patient is alert x3, no focal deficits Results Labs CBC and Chem 7: 07/04/21 07:13 07/04/21 07:12 Labs: Laboratory Results - last 24 hr 07/03/21 07/03/21 07/03/21 14:11 14:11 19:32 MCV 88.0 MCH 29.7 MCHC 33.8 RDW 12.7 Plt Count 367 MPV 8.9 L Immature Gran % (Auto) Neut % (Auto) Lymph % (Auto) [place] % (Auto) Eos % (Auto) Baso % (Auto) Lymph # (Auto) [place] # (Auto) Eos # (Auto) Baso # (Auto) Abs Immat Gran (auto) Absolute Neuts (auto) Absolute Nucleated RBC 0.000 Nucleated RBC % (auto) 0.0 Anion Gap 11 L Estim Creat Clear Calc 90.7 Estimated GFR > 60 POC Glucose Random Glucose 178 H D Calcium 10.5 H D Total Bilirubin 0.7 Direct Bilirubin 0.3 AST 12 ALT 40 Alkaline Phosphatase 64 Total Protein 7.3 Albumin 4.7 Lipase 29 Urine Color YELLOW Urine Appearance CLEAR Urine pH 7.0 Ur Specific [place] <= 1.005 Urine Protein TRACE Urine Glucose (UA) NEG Urine Ketones NEG Urine Blood NEG Urine Nitrite NEG Ur Leukocyte Esterase NEG COVID-19 ([facility]ELBA) COVID-19 Clin Com 07/03/21 07/03/21 07/04/21 20:29 20:33 07:05 MCV MCH MCHC RDW Plt Count MPV Immature Gran % (Auto) Neut % (Auto) Lymph % (Auto) [place] % (Auto) Eos % (Auto) Baso % (Auto) Lymph # (Auto) [place] # (Auto) Eos # (Auto) Baso # (Auto) Abs Immat Gran (auto) Absolute Neuts (auto) Absolute Nucleated RBC Nucleated RBC % (auto) Anion Gap Estim Creat Clear Calc Estimated GFR POC Glucose 138 H 120 H Random Glucose Calcium Total Bilirubin Direct Bilirubin AST ALT Alkaline Phosphatase Total Protein Albumin Lipase Urine Color Urine Appearance Urine pH Ur Specific [place] Urine Protein Urine Glucose (UA) Urine Ketones Urine Blood Urine Nitrite Ur Leukocyte Esterase COVID-19 (MELBA) Negative COVID-19 Clin Com See Note 07/04/21 07/04/21 07:12 07:13 MCV 87.3 MCH 29.2 MCHC 33.4 RDW 12.8 Plt Count 315 MPV 9.3 L Immature Gran % (Auto) 0.3 Neut % (Auto) 68.9 Lymph % (Auto) 16.[address] [place] % (Auto) 9.0 Eos % (Auto) 4.9 H Baso % (Auto) 0.1 Lymph # (Auto) 1.5 [place] # (Auto) 0.8 Eos # (Auto) 0.4 Baso # (Auto) 0.0 Abs Immat Gran (auto) 0.03 Absolute Neuts (auto) 6.2 Absolute Nucleated RBC 0.000 Nucleated RBC % (auto) 0.0 Anion Gap 11 L Estim Creat Clear Calc 103.1 Estimated GFR > 60 POC Glucose Random Glucose 128 H Calcium 9.1 D Total Bilirubin Direct Bilirubin AST ALT Alkaline Phosphatase Total Protein Albumin Lipase Urine Color Urine Appearance Urine pH Ur Specific [place] Urine Protein Urine Glucose (UA) Urine Ketones Urine Blood Urine Nitrite Ur Leukocyte Esterase COVID-19 (MELBA) COVID-19 Clin Com Imaging Radiologist's Impressions: Impressions Abdomen/Pelvis CT 07/03/21 18:20 IMPRESSION: Evidence of small bowel obstruction with a transition zone appearing to be in the mid abdomen just the abdominal wall but a precise lesion or abnormality is not seen. Continued follow-up is recommended. No other finding of note is seen. Fleischner guidelines were followed. Chest X-Ray 07/03/21 20:52 IMPRESSION: Enteric tube courses into the stomach and terminates outside of the field of view. Increased interstitial markings is a nonspecific finding that could be associated with asthma, bronchitis, reactive airways disease or atypical viral infections. Assessment and Plan (1) Abdominal pain, left upper quadrant: Status: Acute (2) Small bowel obstruction due to adhesions: Status: Acute (3) Controlled diabetes mellitus without complication, without long-term current use of insulin: Qualifiers: Diabetes mellitus type: type 2 Qualified Code(s): E11.9 - Type 2 diabetes mellitus without complications Status: Acute Plan 55-year-old male patient presenting with a recurrent small-bowel obstruction following previous colon surgery for perforated diverticulitis. Patient is being treated non operatively with nasogastric tube decompression, IV fluids, and bowel rest. This morning he does feel improved with some passing of flatus. He denies a bowel movement. SBO Management as per surgical team continue NPO NGT IVFs Diabetes Insulin sliding scale DVT prophylaxis with Lovenox Attending Dr. Velasco Full code
--- NOTE | 2021-07-04 08:14 | P.CONIM_ITS ---
History of Present Illness Data of Consult Service Date: 07/04/21 Primary Care Provider: Chary Francois MD HPI Reason for consult: abdominal pain 55 year old male with PMH of Diabetes, HLD,, recurrent small-bowel obstruction admitted to general surgery team for SBO. the patient has has an extensive history of obstruction recurrence and diverticulitis with perforation. He presented with abd pain, nausea and vomiting and last BM was 3 days prior to admission. He reports feeling better since the placement of the NG tube and that he start passing gases. Hospitalist team asked to evaluate the patient for medical problems. Review of Systems Review of Systems: No fever, chills or weakness No chest pain, palpitation No shortness of breath or coughing reported decreased abdominal pain and nausea, NG tube in place and bothering him No urinary symptoms No any rash or wounds PMFSH Medical History Abdominal pain, left upper quadrant Controlled diabetes mellitus without complication, without long-term current use of insulin Diverticulitis Diverticulosis Essential hypertension Hyperlipidemia LDL goal <100 Right shoulder pain Small bowel obstruction due to adhesions Family History Father CVD (cardiovascular disease) Mother CVD (cardiovascular disease) Diabetes Surgical History History of colostomy reversal History of incisional hernia repair Social History Household Members: Spouse and Children Housing: Apartment Alcohol intake: former Patient Tobacco Use Status: Former Tobacco user Tobacco use type: Cigarette e-Cigarette/Vaping Use: Never Used Second Hand Smoke Exposure: No service: No Current occupational status: disabled Current occupational exposures/hazards: No Meds Allergies Allergy/AdvReac Type Severity Reaction Status Date / Time No Known Allergies Allergy Verified 07/03/21 19:24 Active Medications: Current Medications Dextrose (Dextrose 50 % 25 Gm/50 Ml Syringe) 25 gm IVPUSH Q15M PRN; Protocol PRN Reason: per Hypoglycemia Standing Ord. Enoxaparin Sodium (Enoxaparin Sodium 40 Mg/0.4 Ml Syringe) 40 mg SUBCUT Q24H [facility] Last Admin: 07/03/21 21:18 Dose: 40 mg Documented by: Glucose (Glucose Gel 15 Gm Gel..Gram.) 15 gm PO Q15M PRN; Protocol PRN Reason: per Hypoglycemia Standing Ord. Hydromorphone HCl (Hydromorphone Hcl 1 Mg/Ml Syringe) 0.5 mg IVPUSH Q3H PRN; Protocol PRN Reason: Pain, Severe (Pain Scale 7-10) Last Admin: 07/04/21 07:18 Dose: 0.5 mg Documented by: Acetaminophen (Ofirmev) 1,000 mg in 100 mls @ 400 mls/hr IV Q6H PRN PRN Reason: Pain, Moderate (Pain Scale 4-6 Lactated Ringer's (Lr) 1,000 mls @ 125 mls/hr IVCONT .Q8H [facility] Last Admin: 07/04/21 04:07 Dose: 125 mls/hr Documented by: Insulin Human Lispro (Insulin Lispro 100 Unit/Ml 3 Ml Vial) 0 unit SUBCUT QIDACHS [facility]; Protocol Stop: 07/04/21 20:20 Last Admin: 07/04/21 07:19 Dose: Not Given Documented by: Multi-Ingred Medicated Throat [place] (Throat [place], Medicated 20 Ml Bottle) 1 spray MUCOUS MEM Q2H PRN PRN Reason: Sore Throat Ondansetron HCl (Ondansetron Hcl 4 Mg/2 Ml Vial) 4 mg IVPUSH Q8H PRN PRN Reason: Nausea Oxycodone HCl (Oxycodone Hcl Immed Release 5 Mg Tablet) 5 mg PO Q6H PRN PRN Reason: Pain, Moderate (Pain Scale 4-6 Pharmacy Consult (Consult Rx Perform Med Rec) 1 each MISCELLANE ONCE PRN PRN Reason: Consult order Sodium Chloride (0.9 % Sodium Chloride Flush 3 Ml Syringe) 3 ml IVFLUSH [facility] Last Admin: 07/04/21 07:19 Dose: Not Given Documented by: Zolpidem Tartrate (Zolpidem Tartrate 5 Mg Tablet) 5 mg PO BEDTIME PRN PRN Reason: Insomnia Home Medications Medication Instructions Recorded Confirmed Last Taken Type blood-glucose meter #1 ea 03/29/20 04/10/21 Unknown History Physical Exam Vital Signs and Narrative: Vital Signs: Last Vital Signs Temp 98.6 F 07/04/21 07:10 Pulse 71 07/04/21 07:10 Resp 17 07/04/21 07:10 BP 126/69 07/04/21 07:10 Pulse Ox 96 07/04/21 07:10 BMI result Body Mass Index 24.2 Const: Other: Constitutional : Alert, oriented, not in distress Neck : Normal inspection, Supple Cardiovascular : RRR, S1 S2, no lower extremity edema Respiratory : Good bilateral air entry, no crackles, wheezes or rhonchi Gastrointestinal: soft, lax, decrease bowel sounds, Non tender, multiple scars from previous surgery Skin : Warm, Dry Neurological : Alert & oriented x3, No focal deficit Results Labs CBC and Chem 7: 07/04/21 07:13 07/04/21 07:12 Labs: Laboratory Results - last 24 hr 07/03/21 07/03/21 07/03/21 14:11 14:11 19:32 MCV 88.0 MCH 29.7 MCHC 33.8 RDW 12.7 Plt Count 367 MPV 8.9 L Immature Gran % (Auto) Neut % (Auto) Lymph % (Auto) [place] % (Auto) Eos % (Auto) Baso % (Auto) Lymph # (Auto) [place] # (Auto) Eos # (Auto) Baso # (Auto) Abs Immat Gran (auto) Absolute Neuts (auto) Absolute Nucleated RBC 0.000 Nucleated RBC % (auto) 0.0 Anion Gap 11 L Estim Creat Clear Calc 90.7 Estimated GFR > 60 POC Glucose Random Glucose 178 H D Calcium 10.5 H D Total Bilirubin 0.7 Direct Bilirubin 0.3 AST 12 ALT 40 Alkaline Phosphatase 64 Total Protein 7.3 Albumin 4.7 Lipase 29 Urine Color YELLOW Urine Appearance CLEAR Urine pH 7.0 Ur Specific [place] <= 1.005 Urine Protein TRACE Urine Glucose (UA) NEG Urine Ketones NEG Urine Blood NEG Urine Nitrite NEG Ur Leukocyte Esterase NEG COVID-19 ([facility]BA) COVID-19 Clin Com 07/03/21 07/03/21 07/04/21 20:29 20:33 07:05 MCV MCH MCHC RDW Plt Count MPV Immature Gran % (Auto) Neut % (Auto) Lymph % (Auto) [place] % (Auto) Eos % (Auto) Baso % (Auto) Lymph # (Auto) [place] # (Auto) Eos # (Auto) Baso # (Auto) Abs Immat Gran (auto) Absolute Neuts (auto) Absolute Nucleated RBC Nucleated RBC % (auto) Anion Gap Estim Creat Clear Calc Estimated GFR POC Glucose 138 H 120 H Random Glucose Calcium Total Bilirubin Direct Bilirubin AST ALT Alkaline Phosphatase Total Protein Albumin Lipase Urine Color Urine Appearance Urine pH Ur Specific [place] Urine Protein Urine Glucose (UA) Urine Ketones Urine Blood Urine Nitrite Ur Leukocyte Esterase COVID-19 ([facility]ELBA) Negative COVID-19 Clin Com See Note 07/04/21 07/04/21 07:12 07:13 MCV 87.3 MCH 29.2 MCHC 33.4 RDW 12.8 Plt Count 315 MPV 9.3 L Immature Gran % (Auto) 0.3 Neut % (Auto) 68.9 Lymph % (Auto) 16.8 L [place] % (Auto) 9.0 Eos % (Auto) 4.9 H Baso % (Auto) 0.1 Lymph # (Auto) 1.5 [place] # (Auto) 0.8 Eos # (Auto) 0.4 Baso # (Auto) 0.0 Abs Immat Gran (auto) 0.03 Absolute Neuts (auto) 6.2 Absolute Nucleated RBC 0.000 Nucleated RBC % (auto) 0.0 Anion Gap 11 L Estim Creat Clear Calc 103.1 Estimated GFR > 60 POC Glucose Random Glucose 128 H Calcium 9.1 D Total Bilirubin Direct Bilirubin AST ALT Alkaline Phosphatase Total Protein Albumin Lipase Urine Color Urine Appearance Urine pH Ur Specific [place] Urine Protein Urine Glucose (UA) Urine Ketones Urine Blood Urine Nitrite Ur Leukocyte Esterase COVID-19 (MELBA) COVID-19 Clin Com Imaging Radiologist's Impressions: Impressions Abdomen/Pelvis CT 07/03/21 18:20 IMPRESSION: Evidence of small bowel obstruction with a transition zone appearing to be in the mid abdomen just the abdominal wall but a precise lesion or abnormality is not seen. Continued follow-up is recommended. No other finding of note is seen. Fleischner guidelines were followed. Chest X-Ray 07/03/21 20:52 IMPRESSION: Enteric tube courses into the stomach and terminates outside of the field of view. Increased interstitial markings is a nonspecific finding that could be associated with asthma, bronchitis, reactive airways disease or atypical viral infections. Assessment and Plan (1) Small bowel obstruction due to adhesions: Status: Acute (2) Controlled diabetes mellitus without complication, without long-term current use of insulin: Qualifiers: Diabetes mellitus type: type 2 Qualified Code(s): E11.9 - Type 2 diabetes mellitus without complications Status: Acute Plan 55 year old male with PMH of Diabetes, HLD,, recurrent small-bowel obstruction admitted to general surgery team for SBO. type 2 diabetes Hold metformin SSI diabetic diet once cleared by surgery SBO Surgical team following NG tube in place Hold the rest of his oral medications for the time being DVT PPX Lovenox
--- NOTE | 2021-07-04 09:54 | MHC.CM.PN ---
Patient lives in a condo with his S.O./Marta and his 17 year old DaUGHTER AND HE IS FUNCTIONALLY INDEPENDENT. hOME/NO SERVICES IS THE GOAL FOR DC AND Cm HAS INITIATED AND WILL FOLLOW for dc planning. Patient has received [employer] vax X3 and his PCP is Dr. Chary Figueroa.
--- NOTE | 2021-07-04 11:58 | PC.NURSE ---
PT WANTS TO LEAVE HAS BEEN AGRESSIVE AND UNCOPERATIVE SINCE THIS MORNING. DR BRISENO IS AWARE HAS BEEN TIGER TEXTED
--- NOTE | 2021-07-04 12:05 | PC.NURSE ---
HAVE ENFORCED TO PT THAT IT IS NOT SAFE FOR HIM TO GO HOME WITHOUT BEING SEEN BY SURGICAL PT IS ADAMANT THAT HE WANTS TO LEAVE, CONTINUE TO TRY TO GET IN TOUCH WITH DR BRISENO
--- NOTE | 2021-07-04 12:10 | PC.NURSE ---
ALSO HAVE REACHED OUT TO DR URIBE
[2021-07-04 12:15] VITALS: BP 143/72; PULSE 78; RESP 19; TEMP 36.6; O2SAT 99
[2021-07-04 12:22] LABS: Glucose, Whole Blood 146 mg/dL (60-115)
== END 2021-07-04 15:29 | disposition left against medical advice (07) | DRG 390 ==
LOC: HO.ED 17:54 → HO.EDOVER 21:35 → HO.S3 07-04 12:26 → HO.EDOVER 07-04 15:28
PROVIDERS: Admitting Provider Surgery; Emergency Provider Emergency Medicine Emergency Medical Services; PCP Internal Medicine; Visit Provider Surgery
DX: K91.30 Postprocedural intestinal obstruction, unspecified as to partial versus complete (principal); E78.5 Hyperlipidemia, unspecified; E11.9 Type 2 diabetes mellitus without complications; Z20.822 Contact with and (suspected) exposure to COVID-19; Z87.891 Personal history of nicotine dependence; Z79.84 Long term (current) use of oral hypoglycemic drugs; Z79.899 Other long term (current) drug therapy
CPT/HCPCS: 36415; 71045; 74177; 80048; 80076; 81003; 82947; 83690; 85025; 85027; 87635; 94640; 96361; 96374; 96375; 96376; 99285; J1170; J1650; J2270; J2405; Q9967

== ENCOUNTER 2021-08-17 07:23 | Outpatient (REF) | payer OTHER, SELFPAY ==
[2021-08-17 08:13] LABS: Alanine Aminotransferase 45 U/L (0-40); Albumin Level 4.4 g/dL (3.5-5.0); Alkaline Phosphatase 68 U/L (39-117); Anion Gap 13 (12-20); Aspartate Amino Transferase 16 U/L (5-37); Bilirubin Total 0.8 mg/dL (0.0-1.0); Blood Urea Nitrogen 10 mg/dL (9-16); Calcium 9.7 mg/dL (8.4-10.2); Carbon Dioxide 25 mmol/L (22-29); Chloride 101 mmol/L (96-108); Cholesterol 108 mg/dL; Estimated Glomerular Filt Rate > 60; Glucose Fasting 163 mg/dL (60-99); HDL Cholesterol 33 mg/dL; LDL Cholesterol Calculated 43 mg/dl; Potassium 4.4 mmol/L (3.3-5.1); Sodium 135 mmol/L (135-145); Total Protein 6.8 g/dL (6.5-8.0); Triglycerides 161 mg/dL
[2021-08-17 08:40] LABS: Creatinine Urine 127.36 mg/dL; Microalbum/Creatinine Ratio Ur 31.4 ug/mg cr
== END 2021-08-17 07:24 | disposition home or self-care (01) ==
LOC: HO.LAB 07:23
PROVIDERS: PCP Internal Medicine; Visit Provider Internal Medicine
DX: E11.9 Type 2 diabetes mellitus without complications (principal); E78.5 Hyperlipidemia, unspecified; I10 Essential (primary) hypertension
CPT/HCPCS: 36415; 80053; 80061; 82043

== ENCOUNTER 2021-12-20 06:57 | Outpatient (REF) | payer OTHER, SELFPAY ==
[2021-12-20 08:22] LABS: Alanine Aminotransferase 54 U/L (0-40); Albumin Level 4.3 g/dL (3.5-5.0); Alkaline Phosphatase 80 U/L (39-117); Anion Gap 15 (12-20); Aspartate Amino Transferase 17 U/L (5-37); Bilirubin Total 0.6 mg/dL (0.0-1.0); Blood Urea Nitrogen 7 mg/dL (9-16); Calcium 9.2 mg/dL (8.4-10.2); Carbon Dioxide 25 mmol/L (22-29); Chloride 100 mmol/L (96-108); Cholesterol 115 mg/dL; Estimated Glomerular Filt Rate > 60; Glucose Fasting 292 mg/dL (60-99); HDL Cholesterol 35 mg/dL; LDL Cholesterol Calculated 37 mg/dl; Potassium 4.7 mmol/L (3.3-5.1); Sodium 135 mmol/L (135-145); Total Protein 6.7 g/dL (6.5-8.0); Triglycerides 217 mg/dL
[2021-12-20 08:48] LABS: Creatinine Urine 128.97 mg/dL; Microalbum/Creatinine Ratio Ur 35.6 ug/mg cr
== END 2021-12-20 06:58 | disposition home or self-care (01) ==
LOC: HO.LAB 06:57
PROVIDERS: PCP Internal Medicine; Visit Provider Internal Medicine
DX: E78.5 Hyperlipidemia, unspecified (principal); I10 Essential (primary) hypertension; E11.9 Type 2 diabetes mellitus without complications
CPT/HCPCS: 36415; 80053; 80061; 82043

== ENCOUNTER 2022-01-31 19:01 | Emergency (ER) | payer OTHER, SELFPAY ==
[2022-01-31 19:14] VITALS: BP 121/72; PULSE 89; RESP 18; TEMP 37.2; O2SAT 97; BMI 24.0
[2022-01-31 19:25] LABS: MANUAL DIFF FLAG NO
[2022-01-31 19:27] LABS: Basophils Percent Auto 0.4 % (0-2); Eosinophils Absolute Auto 0.3 X10*3/uL (0.0-0.4); Hematocrit 43.8 % (42.0-52.0); Imm Gran Abs Auto 0.07 X10*3/uL (0.00-0.03); Imm Gran Pct Auto 0.6 % (0.0-0.4); Lymphocytes Absolute Auto 1.7 X10*3/uL (1.2-4.9); Lymphocytes Percent Auto 14.8 % (20-40); Mean Corpuscular HGB Conc 34.2 g/dl (31.0-36.0); Mean Corpuscular Hemoglobin 29.1 pg (27.0-33.0); Mean Corpuscular Volume 84.9 fL (80.0-98.0); Mean Platelet Volume 9.1 fL (9.4-12.4); Monocytes Absolute Auto 0.8 X10*3/uL (0.1-1.2); Monocytes Percent Auto 6.7 % (2-11); Neutrophils Absolute Auto 8.5 x10*3/uL (2.0-8.3); Neutrophils Percent Auto 74.5 % (45-73); Platelet Count 453 X10*3/uL (160-400); Red Blood Count 5.16 X10*6/uL (4.60-5.80); Red Cell Distribution Width 12.9 % (11.0-16.0); White Blood Count 11.4 X10*3/uL (4.8-10.8)
[2022-01-31 19:55] LABS: Alanine Aminotransferase 37 U/L (0-40); Albumin Level 4.7 g/dL (3.5-5.0); Alkaline Phosphatase 74 U/L (39-117); Anion Gap 20 (12-20); Aspartate Amino Transferase 17 U/L (5-37); Bilirubin Direct 0.4 mg/dL (0.0-0.5); Bilirubin Total 0.8 mg/dL (0.0-1.0); Blood Urea Nitrogen 23 mg/dL (9-16); Calcium 10.7 mg/dL (8.4-10.2); Carbon Dioxide 22 mmol/L (22-29); Chloride 99 mmol/L (96-108); Estimated Glomerular Filt Rate > 60; Glucose Random 96 mg/dL (60-115); Lipase 38 U/L (8-78); Potassium 4.9 mmol/L (3.3-5.1); Sodium 136 mmol/L (135-145); Total Protein 7.3 g/dL (6.5-8.0)
== END 2022-02-01 02:11 | disposition left against medical advice (07) ==
PROVIDERS: Emergency Provider Emergency Medicine; PCP Internal Medicine
DX: R11.2 Nausea with vomiting, unspecified (principal); R10.9 Unspecified abdominal pain; Z98.84 Bariatric surgery status; Z79.899 Other long term (current) drug therapy
CPT/HCPCS: 36415; 80053; 82248; 83690; 85025; 99281; 99283

== ENCOUNTER 2022-07-13 10:33 | Emergency (ER) | payer OTHER, SELFPAY ==
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
[2022-07-13 10:41] VITALS: BP 150/70; BP 161/88; PULSE 100; PULSE 102; RESP 16; TEMP 37.1; O2SAT 98; O2SAT 99; BMI 23.7
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
[2022-07-13] MEDS: Diphth,Pertus(ACell),Tet Adult 0.5 ML SYRINGE IM (11:53)
[2022-07-13] MEDS: Lidocaine HCl 1 % MPF 5 ML VIAL SUBCUT ×2 (11:54→11:55)
[2022-07-13] MEDS: oxyCODONE HCl Immed Release 5 MG TABLET PO ×2 (11:54→12:48)
[2022-07-13] MEDS: Acetaminophen 325 MG TABLET 975 MG PO (11:54)
[2022-07-13 14:00] VITALS: BP 112/62; PULSE 79; RESP 16; O2SAT 96
== END 2022-07-13 14:19 | disposition home or self-care (01) ==
PROVIDERS: Emergency Provider Emergency Medicine; PCP Internal Medicine
DX: S01.81XA Laceration without foreign body of other part of head, initial encounter (principal); S01.112A Laceration without foreign body of left eyelid and periocular area, initial encounter; S80.211A Abrasion, right knee, initial encounter; S00.01XA Abrasion of scalp, initial encounter; S00.81XA Abrasion of other part of head, initial encounter; S00.03XA Contusion of scalp, initial encounter; S00.83XA Contusion of other part of head, initial encounter; Y00.XXXA Assault by blunt object, initial encounter; E11.9 Type 2 diabetes mellitus without complications; I10 Essential (primary) hypertension; E78.5 Hyperlipidemia, unspecified; Z87.891 Personal history of nicotine dependence; Z79.85 Long-term (current) use of injectable non-insulin antidiabetic drugs; Z79.84 Long term (current) use of oral hypoglycemic drugs; Z79.899 Other long term (current) drug therapy; Z79.02 Long term (current) use of antithrombotics/antiplatelets; Y93.89 Activity, other specified; Y92.481 Parking lot as the place of occurrence of the external cause; Y99.9 Unspecified external cause status
CPT/HCPCS: 12011; 12052; 70450; 70486; 90471; 90715; 99284

== ENCOUNTER 2022-07-20 08:31 | Emergency (ER) | payer OTHER, SELFPAY ==
[2022-07-20 08:47] VITALS: BP 112/61; PULSE 71; RESP 16; TEMP 36.7; O2SAT 95; BMI 23.6
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
== END 2022-07-20 09:17 | disposition home or self-care (01) ==
PROVIDERS: Emergency Provider Emergency Medicine; PCP Internal Medicine
DX: Z48.02 Encounter for removal of sutures (principal); S01.81XD Laceration without foreign body of other part of head, subsequent encounter; X58.XXXD Exposure to other specified factors, subsequent encounter; E11.9 Type 2 diabetes mellitus without complications; I10 Essential (primary) hypertension; E78.5 Hyperlipidemia, unspecified; Z79.02 Long term (current) use of antithrombotics/antiplatelets; Z79.899 Other long term (current) drug therapy; Z79.84 Long term (current) use of oral hypoglycemic drugs
CPT/HCPCS: 99283

== ENCOUNTER 2022-10-11 06:21 | Outpatient (REF) | payer OTHER, SELFPAY ==
[2022-10-11 08:29] LABS: Alanine Aminotransferase 39 U/L (0-40); Albumin Level 4.3 g/dL (3.5-5.0); Alkaline Phosphatase 68 U/L (39-117); Anion Gap 14 (12-20); Aspartate Amino Transferase 17 U/L (5-37); Bilirubin Total 0.7 mg/dL (0.0-1.0); Blood Urea Nitrogen 11 mg/dL (9-16); Carbon Dioxide 28 mmol/L (22-29); Chloride 102 mmol/L (96-108); Cholesterol 130 mg/dL; Estimated Glomerular Filt Rate > 60; Glucose Fasting 101 mg/dL (60-99); HDL Cholesterol 38 mg/dL; LDL Cholesterol Calculated 65 mg/dl; Potassium 4.4 mmol/L (3.3-5.1); Sodium 140 mmol/L (135-145); Total Protein 6.7 g/dL (6.5-8.0); Triglycerides 138 mg/dL
[2022-10-11 09:30] LABS: Creatinine Urine 115.75 mg/dL; Microalbum/Creatinine Ratio Ur 8.6 ug/mg cr
== END 2022-10-11 06:22 | disposition home or self-care (01) ==
LOC: HO.LAB 06:21
PROVIDERS: PCP Internal Medicine; Visit Provider Internal Medicine
DX: E11.9 Type 2 diabetes mellitus without complications (principal); E78.5 Hyperlipidemia, unspecified
CPT/HCPCS: 36415; 80053; 80061; 82043

== ENCOUNTER 2022-12-06 12:41 | Outpatient (AMB) | payer OTHER, SELFPAY ==
--- NOTE | 2022-12-06 09:19 | MHC.OFFVIS ---
Intake Intake Visit Reasons: LDCT SD Allergies No Known Allergies Allergy (Verified 10/15/22 10:47) HPI LDCT SD HPI Details Initial visit for this 57yo former smoker with a 45PYH. Patient has been smoking since age 22 for 30 years at 1-2ppd. He quit in 2018. Reports feeling much better since quitting. . Denies marijuana use. Denies second hand smoke exposure. Denies exposure to chemicals or substances like asbestos. . Denies known family history of lung cancer. Denies personal history of cancers. Denies chest CT in last year. . Denies recent travel outside the [place]. Denies recent respiratory illness or recent hospitalization for respiratory issues. Denies testing positive for COVID. Admits receiving COVID Vaccine. x3. . Denies fever, chills, new/worsening cough, hemoptysis, hoarseness or dysphagia. Denies significant chest pain, significant dyspnea or unintentional weight loss. Patient Lung Cancer Screening Questionnaire reviewed with patient by provider. . Shared Decision Making Completed. Patient meets criteria. Discussed in detail with patient, the risk vs benefit of LDCT screening. Patient consents to proceed with scan. Discussed and encouraged continued smoking cessation. [facility], [facility] Medical History (Updated 12/06/22 @ 13:09 by Erlinda Wallis PA-C) Controlled diabetes mellitus without complication, without long-term current use of insulin Diverticulitis Essential hypertension History of small bowel obstruction Hyperlipidemia LDL goal <70 Personal history of nicotine dependence Sleeping difficulty Surgical History (Updated 12/03/22 @ 11:06 by Erlinda Wallis PA-C) History of colectomy (~2002) History of colostomy reversal (~2005) History of exploratory laparotomy (~2007) History of tooth extraction (~2022) Family History Father CVD (cardiovascular disease) Mother CVD (cardiovascular disease) Diabetes Social History (Updated 12/06/22 @ 13:09 by Erlinda Wallis PA-C) Household Members: Spouse and Children Housing: Apartment Alcohol intake: former Patient Tobacco Use Status: Former Tobacco user Quit Date: 2017 Tobacco use type: Cigarette Years Smoked: (onset 22yo, 1-2ppd x 30yrs, 45pyh - quit 2018) e-Cigarette/Vaping Use: Never Used Second Hand Smoke Exposure: No service: No Current occupational status: disabled Current occupational exposures/hazards: No Cognitive needs: No Hearing needs: No Vision needs: No Assessment & Plan Assessment & Plan (1) Personal history of nicotine dependence: Comment: (former smoker - onset 22yo, 1-2ppd x 30yrs, 45pyh - quit 2018) Code(s): Z87.891 - Personal history of nicotine dependence Plan: - SDM visit completed today in office. - Patient meets criteria for LDCT for lung cancer screening purposes and is asymptomatic. - Smoking cessation counseling offered. Patients can always call [phone]. - Will arrange for a LDCT scan of the chest for screening purposes at [facility]. - Risks, benefits, and alternatives were discussed in detail and the patient agrees to proceed. - Risks discussed include but are not limited to: radiation exposure, anxiety during testing and while awaiting results, false negatives, false positives and possibility of additional intervention such as further imaging or surgical procedures for benign disease. - Benefits are obviously detection of lung cancer at an early stage which can lead to improved outcomes. - Discussed the importance of screening program compliance with adherence to yearly LDCT scan as scheduled - or sooner interval scans for personalized screening regimen. - Discussed follow up plan. Our office will send a letter discussing results and if needed set up phone call and office visit based on CT findings. - Patient educated on results categorization and the management decisions for suspicious findings potentially found on the screening LDCT scan. Any patient with a Lung RADS score of 3 or 4 will be reviewed by a multidisciplinary team at [facility] to form a plan of action in regards to scan findings. - If further work up is warranted for a suspicious lung finding this will be followed by the Lung Cancer Screening program in conjunction with the Thoracic Surgery Department at [facility]. - A copy of the office note and LDCT will be sent to the patient's PCP - as well as documentation on any associated further plans of care. - Incidental findings on LDCT are the PCP's responsibility. These findings are indicated with an S finding on the LDCT Assessment. A note discussing the findings will be sent to the PCP who is then responsible for further management. - All questions answered.? Coding Level of Care Code Lung Cancer Screening [id number] Diagnoses Personal history of nicotine dependence Z87.891
== END 2022-12-06 13:11 | disposition home or self-care (01) ==
PROVIDERS: PCP Internal Medicine; Visit Provider Physician Assistant Medical
DX: Z87.891 Personal history of nicotine dependence (principal)
CPT/HCPCS: G0296

== ENCOUNTER 2022-12-06 13:08 | Outpatient (REF) | payer OTHER, SELFPAY ==
--- NOTE | ~2022-12-06 | CT_ITS ---
EXAMINATION: CT CHEST SCREENING CLINICAL INFORMATION: Former smoker. Quit 5 years ago. 56 pack year history COMPARISON: Previous chest x-ray June 2021 TECHNIQUE: Multidetector volumetric CT imaging of the chest is performed without contrast using low dose technique. Additional 2D coronal and sagittal reformatted images and axial 3D maximum intensity projection (MIP) images are generated on the CT workstation. This CT examination was performed using dose optimization techniques as appropriate, variously including the following: *Automated exposure control *Adjustment of mA and/or kV according to patient size (this includes techniques or standardized protocols for targeted exams where dose is matched to indication/reason for exam; i.e. extremities or head) *Use of iterative reconstruction technique DLP: 43 mGy-cm FINDINGS: LUNGS: There is evidence of emphysema. There are increased peripheral reticular markings and parenchymal attenuation suggestive of mild interstitial lung disease. There is a 3 mm calcified right lower lobe nodule axial image 363 series 5. There is a 2 mm calcified right lower lobe nodule axial image 400 series 5. There is a 3 mm noncalcified lingular nodule axial image 287 series 5. No endobronchial or endotracheal lesion. MEDIASTINUM: The mediastinum is normal. CORONARY ARTERY CALCIFICATION: Mild PLEURA: There is no pleural effusion. No pleural mass or thickening. AXILLA: No lymphadenopathy. UPPER ABDOMEN: Unremarkable OSSEOUS STRUCTURES: Unremarkable. CT/CT lung screening IMPRESSION: Emphysema and mild peripheral interstitial lung. Small pulmonary nodules or micronodules. ASSESSMENT: Lung-RADS category 2: Benign RECOMMENDATION: Annual low-dose chest CT follow-up recommended.
== END 2022-12-06 13:09 | disposition home or self-care (01) ==
LOC: HO.CT 13:08
PROVIDERS: PCP Internal Medicine; Visit Provider Physician Assistant Medical
DX: Z12.2 Encounter for screening for malignant neoplasm of respiratory organs (principal); F17.210 Nicotine dependence, cigarettes, uncomplicated
CPT/HCPCS: 71271; G0296

== ENCOUNTER 2023-01-14 09:19 | Outpatient (AMB) | payer OTHER, SELFPAY ==
--- NOTE | 2023-01-14 09:28 | A.OFFVIS_ITS ---
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 Pt was seen by Dr. Cota in 2020 and had 1 injection in his right shoulder which helped.Pt is right handed dominant. Pt states he has a little pain in his right shoulder but he thinks that was due to him sleeping on it but he states he has severe left shoulder pain which started about 3 days ago. Pt states he has tried 800mg ibuprofen and icing his shoulder with no relief. Pt states he can't lift his arm above his head. He denies any fevers or chills. He denies any recent traumatic event preceding the onset of his pain other than sleeping on his shoulder. Allergies No Known Allergies Allergy (Verified 01/14/23 09:28) Medication List - Last Reconciled 01/14/23 by Juan M Delgado MD atorvastatin 40 mg PO DAILY blood sugar diagnostic (FreeStyle Test strips) Use 1 test strip once a day blood-glucose meter As directed dulaglutide (Trulicity) 0.75 mg (0.5 mL) subcut QWEEK 90 days hydroxyzine HCl 12.5 mg (1/2 x 25 mg) PO BEDTIME PRN lisinopril 2.5 mg PO DAILY 90 days metformin 1,000 mg PO BID naproxen (Naprosyn) 500 mg PO BID PRN omeprazole 20 mg PO DAILY 90 days tramadol 50 mg PO Q6H PRN 30 days PFSH Medical History Controlled diabetes mellitus without complication, without long-term current use of insulin Diverticulitis Essential hypertension History of small bowel obstruction Hyperlipidemia LDL goal <70 Personal history of nicotine dependence Sleeping difficulty Surgical History History of colectomy (~2002) History of colostomy reversal (~2005) History of exploratory laparotomy (~2007) History of tooth extraction (~2022) Family History Father CVD (cardiovascular disease) Mother CVD (cardiovascular disease) Diabetes Social History Household Members: Spouse and Children Housing: Apartment Alcohol intake: former Patient Tobacco Use Status: Former Tobacco user Quit Date: 2017 Tobacco use type: Cigarette Years Smoked: (onset 22yo, 1-2ppd x 30yrs, 45pyh - quit 2018) e-Cigarette/Vaping Use: Never Used Second Hand Smoke Exposure: No service: No Current occupational status: disabled Current occupational exposures/hazards: No Cognitive needs: No Hearing needs: No Vision needs: No Physical Exam Const Other: Well-nourished well-developed very friendly male awake alert and oriented x3 in no acute distress Extrem Other: Bilateral upper extremity examination shows good capillary refill, no skin lesions noted, normal sensation light touch Left shoulder examination shows decreased active and passive range of motion when compared to his right shoulder, 4+ out of 5 strength with supraspinatus testing, positive impingement signs, tenderness over his acromioclavicular joint, no instability Office Procedures Joint Injection/Drain Joint Injection/Drain Primary Site: left shoulder Prep: site was prepped using aseptic technique Injected: 40 mg of, Kenalog and 1% plain lidocaine Procedure: The patient tolerated the procedure well Coding 01713 - Large joint Procedure code (CPT) selection complete Results Reviewed Results Reviewed: 01/14/23 09:52 Lidocaine HCl 2 % MPF [Xylocaine 2 % MPF] 5 ml .ROUTE .STK-MED ONE 01/14/23 09:53 Triamcinolone Acetonide [Kenalog-40] 40 mg .ROUTE .STK-MED ONE Assessment & Plan Assessment & Plan (1) Impingement syndrome of left shoulder: Code(s): M75.42 - Impingement syndrome of left shoulder Plan Mr. Ruth Corbin presents with left shoulder pain and stiffness most likely due to impingement syndrome as well as adhesive capsulitis. I had a lengthy discussion with the patient regarding the treatment options. The risks and benefits of a cortisone injection were discussed at length with the patient. The patient wished to proceed. The patient tolerated the left shoulder cortisone injection well. He will continue with his home stretching program to prevent further stiffness. He will follow-up with me on an as-needed basis should his symptoms not plateau at an unacceptable level over the next few months. Feel free to call me at any time should questions regarding his orthopedic management arise. Thank you very much for asking me to see this very friendly gentleman. I spent 22 minutes in reviewing the patient's records and imaging studies, seeing the patient and documenting in the medical record. Orders: Orders AMB Joint Injection/Aspiration Today M75.42 - Impingement syndrome of left shoulder Coding Level of Care Code Est Pt Level 2 (95239) Diagnoses Impingement syndrome of left shoulder M75.42 CPT Codes Coding - 02161 Large joint: 46268 - Large joint ([id number])
== END 2023-01-14 10:03 | disposition home or self-care (01) ==
LOC: HO.HOS 09:19
PROVIDERS: PCP Internal Medicine; Visit Provider Orthopaedic Surgery
DX: M75.42 Impingement syndrome of left shoulder (principal); M75.32 Calcific tendinitis of left shoulder
CPT/HCPCS: 20610; 99214

== ENCOUNTER → 2023-01-14 09:19 | Outpatient (BNVA) | payer OTHER, SELFPAY | PROVIDERS: PCP Internal Medicine; Visit Provider Orthopaedic Surgery | DX: M75.42 Impingement syndrome of left shoulder (principal) | CPT/HCPCS: 20610; J3301 ==

== ENCOUNTER 2023-01-30 11:37 | Outpatient (REF) | payer OTHER, SELFPAY ==
--- NOTE | ~2023-01-30 | XR_ITS ---
EXAMINATION: XR SHOULDER, LEFT CLINICAL INFORMATION: Impingement syndrome. COMPARISON: None available. TECHNIQUE: AP and scapular Y views of the left shoulder. FINDINGS: The bones and soft tissues are normal. No fracture. Glenohumeral and acromioclavicular alignment is anatomic with normal joint space. No abnormal soft tissue calcifications. XR/XR shoulder LT min 2V IMPRESSION: Unremarkable examination.
== END 2023-01-30 11:38 | disposition home or self-care (01) ==
LOC: HO.HOSX 11:37
PROVIDERS: Visit Provider Orthopaedic Surgery
DX: M75.42 Impingement syndrome of left shoulder (principal)
CPT/HCPCS: 73030

== ENCOUNTER 2023-02-04 09:19 | Outpatient (AMB) | payer OTHER, SELFPAY ==
--- NOTE | 2023-02-04 09:21 | MHC.OFFVIS ---
Intake Vital Signs 02/04/23 09:23 Height 5 ft 6 in Weight 149 lb BMI 24.0 Intake Visit Reasons: OV-left shoulder pain F/U Intake Note: Ismael is a 57 year old male who presents today for a follow up of his left shoulder pain , he was last seen on 01/14/23 where he received an injection. The patient describes his left shoulder pain as sharp in nature. He reports weakness when lifting his left hand above shoulder height. He has taken Tylenol and anti-inflammatory medicines which gave him minimal relief. He has had injections in the past which gave him no relief. Patient has done physical therapy for 12 weeks over the last 6 months which aggravated his pain. 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 Most of the pain is along the superior and lateral aspects of his left shoulder. Allergies No Known Allergies Allergy (Verified 02/04/23 09:24) Medication List - Last Reconciled 02/04/23 by Juan M Delgado MD atorvastatin 40 mg PO DAILY blood sugar diagnostic (FreeStyle Test strips) Use 1 test strip once a day blood-glucose meter As directed dulaglutide (Trulicity) 0.75 mg (0.5 mL) subcut QWEEK 90 days hydroxyzine HCl 12.5 mg (1/2 x 25 mg) PO BEDTIME PRN lisinopril 2.5 mg PO DAILY 90 days metformin 1,000 mg PO BID naproxen (Naprosyn) 500 mg PO BID PRN omeprazole 20 mg PO DAILY 90 days tramadol 50 mg PO Q6H PRN 30 days PFSH Medical History History of small bowel obstruction Personal history of nicotine dependence Hyperlipidemia LDL goal <70 Sleeping difficulty Diverticulitis Controlled diabetes mellitus without complication, without long-term current use of insulin Essential hypertension Surgical History History of exploratory laparotomy (~2007) History of colectomy (~2002) History of tooth extraction (~2022) History of colostomy reversal (~2005) Family History Father CVD (cardiovascular disease) Mother CVD (cardiovascular disease) Diabetes Social History Household Members: Spouse and Children Housing: Apartment Alcohol intake: former Patient Tobacco Use Status: Former Tobacco user Quit Date: 2017 Tobacco use type: Cigarette Years Smoked: (onset 22yo, 1-2ppd x 30yrs, 45pyh - quit 2018) e-Cigarette/Vaping Use: Never Used Second Hand Smoke Exposure: No service: No Current occupational status: disabled Current occupational exposures/hazards: No Cognitive needs: No Hearing needs: No Vision needs: No Physical Exam Vital Signs: BMI result Body Mass Index 24.0 Const Other: Well-nourished well-developed very friendly male awake alert and oriented x3 in no acute distress Extrem Other: Bilateral upper extremity examination shows good capillary refill, no skin lesions noted, normal sensation light touch Left shoulder examination shows decreased range of motion when compared to his right shoulder, 4+ out of 5 strength with supraspinatus testing, positive impingement signs, tenderness over his acromioclavicular joint, no instability Results Reviewed Results Reviewed: X-rays of the patient's left shoulder show severe acromioclavicular joint narrowing, type 3 acromion, no acute bony abnormalities Assessment & Plan Assessment & Plan (1) Impingement syndrome of left shoulder: Code(s): M75.42 - Impingement syndrome of left shoulder Plan Mr. Ruth Corbin presents with progressively worsening left shoulder pain due to impingement syndrome, acromioclavicular joint arthritis and rotator cuff tendinosis versus a possible rotator cuff tear. I had a lengthy discussion with the patient regarding the treatment options. At this point he has failed continued non operative treatments. The risks and benefits of left shoulder surgery were discussed at length with the patient. The patient is interested in proceeding with surgery later this year. He will contact my office to pick a surgery date when he is ready to do so. Surgery will most likely involve left shoulder diagnostic arthroscopy with distal clavicle excision, acromioplasty and rotator cuff repair showed a full-thickness tear be found at the time of his surgery. The patient will continue with his range of motion exercises in the meantime to prevent stiffness. Feel free to call me at any time should questions regarding his orthopedic management arise. I spent 22 minutes in reviewing the patient's records and imaging studies, seeing the patient and documenting in the medical record. Coding Level of Care Code Est Pt Level 2 (63726) Diagnoses Impingement syndrome of left shoulder M75.42
[2023-02-04 09:23] VITALS: BMI 24.0
== END 2023-02-04 09:55 | disposition home or self-care (01) ==
PROVIDERS: PCP Internal Medicine; Visit Provider Orthopaedic Surgery
DX: M75.42 Impingement syndrome of left shoulder (principal)
CPT/HCPCS: 99212

== ENCOUNTER → 2023-02-04 09:19 | Outpatient (BNVA) | payer OTHER, SELFPAY | PROVIDERS: PCP Internal Medicine; Visit Provider Orthopaedic Surgery | DX: M75.42 Impingement syndrome of left shoulder (principal) | CPT/HCPCS: 99212 ==

== ENCOUNTER 2023-02-17 07:50 | Outpatient (AMB) | payer OTHER, SELFPAY ==
--- NOTE | 2023-02-17 08:16 | MHC.PC.OV ---
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 Accompanied by: Self / Same As Patient Allergies No Known Allergies Allergy (Verified 02/17/23 08:25) Medication List - Last Reconciled 02/17/23 by Chary Francois MD atorvastatin 40 mg PO DAILY blood sugar diagnostic (FreeStyle Test strips) Use 1 test strip once a day blood-glucose meter As directed dulaglutide (Trulicity) 0.75 mg (0.5 mL) subcut QWEEK 90 days hydroxyzine HCl 12.5 mg (1/2 x 25 mg) PO BEDTIME PRN lisinopril 2.5 mg PO DAILY 90 days metformin 1,000 mg PO BID omeprazole 20 mg PO DAILY 90 days tramadol 50 mg PO Q6H PRN 30 days Tobacco use date assessed: 10/15/22 Dental Screening Dental Screen Date: 02/17/23 Did you have a dental visit in the last 12 months?: Yes Did you have a dental problem in the last 6 months where you did not have access to dental care?: No Was dental information given to patient?: Patient has dentist HPI HPI Comments History of Present Illness Details This is a 57-year-old male with hypertension, diabetes mellitus type 2, hyperlipidemia and chronic GERD that complains of left shoulder pain that has been present for few months and has been evaluated by Ortho due to impingement syndrome requiring surgery scheduled for next month. A1c within goal. I decrease the metformin to once a day due to low A1c. Last LDL was within goal. Blood pressure stable. GERD well controlled with PPIs as needed. On tramadol which he is aware can cause addiction and sedation. No chest pain or shortness of breath. [facility] Medical History History of small bowel obstruction Personal history of nicotine dependence Hyperlipidemia LDL goal <70 Sleeping difficulty Diverticulitis Controlled diabetes mellitus without complication, without long-term current use of insulin Essential hypertension Surgical History History of exploratory laparotomy (~2007) History of colectomy (~2002) History of tooth extraction (~2022) History of colostomy reversal (~2005) Family History Father CVD (cardiovascular disease) Mother CVD (cardiovascular disease) Diabetes Social History Household Members: Spouse and Children Housing: Apartment Alcohol intake: former Patient Tobacco Use Status: Former Tobacco user Quit Date: 2017 Tobacco use type: Cigarette Years Smoked: (onset 22yo, 1-2ppd x 30yrs, 45pyh - quit 2017) e-Cigarette/Vaping Use: Never Used Second Hand Smoke Exposure: No service: No Current occupational status: disabled Current occupational exposures/hazards: No Cognitive needs: No Hearing needs: No Vision needs: No Questionnaire Thrive Questionnaire Date Thrive assessed: 10/15/22 CHRIS-7 AMB Questionnaire CHRIS-7 Date CHRIS - 7 assessed: 10/15/22 Source: Developed by Drs. Koko Dupree, Charito Ruffin, Deejay Parisi and colleagues, with an educational hope from [employer]. Review of Systems Const All systems reviewed & are unremarkable except as noted in HPI and below Eyes Reports no additional complaints, Denies change in vision and Denies other visual disturbances Card Denies chest pain at rest, Denies chest pain with activity, Denies edema, Denies irregular heart rhythm, Denies claudication, Denies dyspnea, Denies dyspnea on exertion, Denies orthopnea, Denies paroxysmal nocturnal dyspnea and Denies slow heart rate Resp Denies cough, Denies dyspnea and Denies dyspnea on exertion GI Denies abdominal pain, Denies change in bowel habits, Denies excessive flatus, Denies nausea and Denies vomiting Denies urinary hesitancy, Denies urinary incontinence and Denies urinary urgency Musc Denies abnormal gait, Denies atrophy, Denies deformity, Reports arthralgias and Denies limited range of motion Skin/Breast Denies bleeding lesions, Denies changing lesions and Denies rash Neuro Denies abnormal gait and Denies lack of coordination Physical exam (Primary Care) Vital Signs: Last Vital Signs BP 112/60 02/17/23 08:18 BMI result Body Mass Index 22.4 Tobacco/Smoking Status: Tobacco use Status Tobacco use date assessed 10/15/22 02/17/23 08:21 Patient Tobacco Use Status Former Tobacco user 02/17/23 08:21 Tobacco use type Cigarette 02/17/23 08:21 e-Cigarette/Vaping Use Never Used 02/17/23 08:21 Thrive Assessment: Date of Thrive Assessment Date Thrive assessed 10/15/22 02/17/23 08:21 Eyes General: appearance normal, both eyes and all related structures Eyelids: Yes eyelids normal Conjunctivae: conjunctivae normal Neck Neck: Yes normal visual inspection and Yes supple Resp Effort & Inspection: normal respiratory effort Auscultation: clear to auscultation bilaterally Cardio Jugular venous distension: no JVD Rate: regular rate Rhythm: regular rhythm Heart sounds: S1 normal heart sound present and S2 normal heart sound present Extrem General: Yes full ROM Left upper extremity: shoulder/upper arm Details: tenderness Office Procedures Flu Questionnaire Does the patient have a severe egg allergy?: No Does the patient have severe life threatening allergies?: No Does the patient have a fever or illness today?: No Has the patient ever had Guillain-Alabaster Syndrome?: No Has the patient ever had any past reaction to a flu shot?: No Results AMB Hemoglobin A1c AMB Hemoglobin A1c 5.1 % Last Edit by ESPERANZA Gonzalez on 02/17/23 08:27 Immunizations flu vacc [id number] 6mos up(PF) 60 mcg(15 mcgx4)/0.5 mL IM syringe Performing Provider: Chary Francois MD Performing Location: [facility] Administered by: ESPERANZA Gonzalez on 02/17/23 08:41 Dose Route Admin Location Dispensed Lot Number Expiration Date [employer] 0.5 mL IM Left Deltoid 0.5 mL [id number] 11/09/23 05885-357-89 [email or web address] VIS Given Date VIS Provided VIS Publication Date 02/17/23 Single Vaccine 20 Eligibility Eligibility Date Funding Source Not VFC Eligible 02/17/23 Private Results Reviewed Results Reviewed: Laboratory Last Values Hgb A1c (Clinic) 5.1 % (4.0-6.0) 02/17/23 08:11 Assessment and Plan Assessment & Plan (1) Controlled diabetes mellitus without complication, without long-term current use of insulin: Code(s): E11.9 - Type 2 diabetes mellitus without complications Qualifiers: Diabetes mellitus type: type 2 Qualified Code(s): E11.9 - Type 2 diabetes mellitus without complications Plan: Continue Trulicity. Decrease metformin to once a day. A1c goal is equal or less than 7%. (2) Essential hypertension: Code(s): I10 - Essential (primary) hypertension Plan: Continue lisinopril. Blood pressure goal is equal or less than 130/80. (3) Hyperlipidemia LDL goal <70: Code(s): E78.5 - Hyperlipidemia, unspecified Plan: Continue statins. LDL goal less than 70. (4) Chronic GERD: Code(s): K21.9 - Gastro-esophageal reflux disease without esophagitis Plan: Continue PPIs as needed. (5) Impingement syndrome of left shoulder: Code(s): M75.42 - Impingement syndrome of left shoulder Plan: Follow-up with Ortho. Orders: Orders Influenza [id number] Immunization Today Z23 - Encounter for immunization Microalbumin, Random (w Creat) Today E11.9 - Type 2 diabetes mellitus without complications Comprehensive [place]. Panel Fast Today E11.9 - Type 2 diabetes mellitus without complications Complete Blood Count Auto Diff Today K21.9 - Gastro-esophageal reflux disease without esophagitis ECG 12 lead EKG Today Z01.818 - Encounter for other preprocedural examination AMB Hemoglobin A1c Today E11.9 - Type 2 diabetes mellitus without complications Lipid Panel Today E78.5 - Hyperlipidemia, unspecified Medications: New ibuprofen 800 mg PO Q8H 30 days PRN 90 tabs 0RF pain M75.101 - Unspecified rotator cuff tear or rupture of right shoulder, not specified as traumatic Changed From metformin 1,000 mg PO BID 180 tabs 3RF To metformin 1,000 mg PO DAILY 90 days 90 tabs 3RF Refilled tramadol 50 mg PO Q6H 30 days PRN 120 tabs 0RF pain M25.511 - Pain in right shoulder Coding Level of Care Code Est Pt Level 4 (30804) Diagnoses Controlled type 2 diabetes mellitus without complication, without long-term current use of insulin E11.9 Diabetes mellitus type: type 2 Essential hypertension I10 Hyperlipidemia LDL goal <70 E78.5 Chronic GERD K21.9 Impingement syndrome of left shoulder M75.42 Time Spent (min) 24
[2023-02-17 08:18] VITALS: BP 112/60; PULSE 63; BMI 22.4
== END 2023-02-17 08:45 | disposition home or self-care (01) ==
PROVIDERS: PCP Internal Medicine; Visit Provider Internal Medicine
DX: E11.9 Type 2 diabetes mellitus without complications (principal); I10 Essential (primary) hypertension; E78.5 Hyperlipidemia, unspecified; K21.9 Gastro-esophageal reflux disease without esophagitis; M75.42 Impingement syndrome of left shoulder; Z23 Encounter for immunization
CPT/HCPCS: 83036; 90471; 90686; 99214

== ENCOUNTER → 2023-02-25 07:52 | Outpatient (REF) | payer OTHER, SELFPAY ==
--- NOTE | 2023-02-25 07:56 | ECG_ITS ---
Test Reason : PREOP Blood Pressure : / mmHG Vent. Rate : 062 BPM Atrial Rate : 062 BPM P-R Int : 172 ms QRS Dur : 088 ms QT Int : 386 ms P-R-T Axes : 058 013 044 degrees QTc Int : 391 ms Normal sinus rhythm Normal ECG When compared with ECG of 08-APR-2019 01:02, No significant change was found Referred By: Chary Francois Electronically Signed By:LUMA BOURGEOIS MD
[2023-02-25 08:06] LABS: MANUAL DIFF FLAG NO
[2023-02-25 08:13] LABS: Basophils Absolute Auto 0.1 X10*3/uL (0.0-0.2); Basophils Percent Auto 1.2 % (0-2); Eosinophils Absolute Auto 0.4 X10*3/uL (0.0-0.4); Eosinophils Percent Auto 5.7 % (0-4); Hematocrit 42.7 % (42.0-52.0); Imm Gran Abs Auto 0.11 X10*3/uL (0.00-0.03); Imm Gran Pct Auto 1.5 % (0.0-0.4); Lymphocytes Absolute Auto 2.5 X10*3/uL (1.2-4.9); Mean Corpuscular HGB Conc 32.8 g/dl (31.0-36.0); Mean Corpuscular Hemoglobin 28.9 pg (27.0-33.0); Mean Platelet Volume 8.6 fL (9.4-12.4); Monocytes Absolute Auto 0.7 X10*3/uL (0.1-1.2); Monocytes Percent Auto 9.5 % (2-11); Neutrophils Absolute Auto 3.6 x10*3/uL (2.0-8.3); Neutrophils Percent Auto 48.1 % (45-73); Platelet Count 463 X10*3/uL (160-400); Red Blood Count 4.85 X10*6/uL (4.60-5.80); Red Cell Distribution Width 13.7 % (11.0-16.0); White Blood Count 7.4 X10*3/uL (4.8-10.8)
[2023-02-25 08:48] LABS: Alanine Aminotransferase 71 U/L (0-40); Alkaline Phosphatase 67 U/L (39-117); Anion Gap 14 (12-20); Aspartate Amino Transferase 25 U/L (5-37); Bilirubin Total 0.5 mg/dL (0.0-1.0); Blood Urea Nitrogen 9 mg/dL (9-16); Calcium 9.5 mg/dL (8.4-10.2); Carbon Dioxide 25 mmol/L (22-29); Chloride 104 mmol/L (96-108); Cholesterol 116 mg/dL (<200); Estimated Glomerular Filt Rate > 60; Glucose Fasting 96 mg/dL (60-99); HDL Cholesterol 33 mg/dL (>40); LDL Cholesterol Calculated 67 mg/dL (<100); Potassium 4.2 mmol/L (3.3-5.1); Sodium 139 mmol/L (135-145); Total Protein 6.9 g/dL (6.5-8.0); Triglycerides 82 mg/dL (<150)
[2023-02-25 09:06] LABS: Vitamin D 25-OH Total 23.1 ng/mL (>30)
[2023-02-25 09:32] LABS: Creatinine Urine 174.32 mg/dL; Microalbum/Creatinine Ratio Ur 5.7 ug/mg cr (<30)
== END ==
LOC: HO.CARD 07:52
PROVIDERS: PCP Internal Medicine; Visit Provider Internal Medicine
DX: Z01.818 Encounter for other preprocedural examination (principal); E78.5 Hyperlipidemia, unspecified; E11.9 Type 2 diabetes mellitus without complications; E55.9 Vitamin D deficiency, unspecified; K21.9 Gastro-esophageal reflux disease without esophagitis
CPT/HCPCS: 36415; 80053; 80061; 82043; 82306; 82570; 85025; 93005; 99212

== ENCOUNTER 2023-02-25 09:50 | Outpatient (AMB) | payer OTHER, SELFPAY ==
--- NOTE | 2023-02-25 10:00 | MHC.OFFVIS ---
Intake Vital Signs 02/25/23 10:02 Height 5 ft 6 in Weight 139 lb BMI 22.4 Intake Visit Reasons: Pre-Lt RTC Repair Intake Note: Ismael is a 57 year old male who presents today for a follow up of his left shoulder pain , he was last seen on 01/14/23 where he received an injection. The patient describes his left shoulder pain as sharp in nature. He reports weakness when lifting his left hand above shoulder height. He has taken Tylenol and anti-inflammatory medicines which gave him minimal relief. He has had injections in the past which gave him no relief. Patient has done physical therapy for 12 weeks over the last 6 months which aggravated his pain. 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 Most of the pain is along the superior and lateral aspects of his left shoulder. Pain management agreement reviewed and signed. Allergies No Known Allergies Allergy (Verified 02/25/23 10:05) Medication List - Last Reconciled 02/25/23 by Juan M Delgado MD atorvastatin 40 mg PO DAILY blood sugar diagnostic (FreeStyle Test strips) Use 1 test strip once a day blood-glucose meter As directed dulaglutide (Trulicity) 0.75 mg (0.5 mL) subcut QWEEK 90 days hydroxyzine HCl 12.5 mg (1/2 x 25 mg) PO BEDTIME PRN ibuprofen 800 mg PO Q8H PRN 30 days lisinopril 2.5 mg PO DAILY 90 days metformin 1,000 mg PO DAILY 90 days omeprazole 20 mg PO DAILY 90 days tramadol 50 mg PO Q6H PRN 30 days PFSH Medical History History of small bowel obstruction Personal history of nicotine dependence Hyperlipidemia LDL goal <70 Sleeping difficulty Diverticulitis Controlled diabetes mellitus without complication, without long-term current use of insulin Essential hypertension Surgical History History of exploratory laparotomy (~2007) History of colectomy (~2002) History of tooth extraction (~2022) History of colostomy reversal (~2005) Family History Father CVD (cardiovascular disease) Mother CVD (cardiovascular disease) Diabetes Social History Household Members: Spouse and Children Housing: Apartment Alcohol intake: former Patient Tobacco Use Status: Former Tobacco user Quit Date: 2017 Tobacco use type: Cigarette Years Smoked: (onset 22yo, 1-2ppd x 30yrs, 45pyh - quit 2018) e-Cigarette/Vaping Use: Never Used Second Hand Smoke Exposure: No service: No Current occupational status: disabled Current occupational exposures/hazards: No Cognitive needs: No Hearing needs: No Vision needs: No Physical Exam Vital Signs: BMI result Body Mass Index 22.4 Const Other: Well-nourished well-developed very friendly male awake alert and oriented x3 in no acute distress Lungs - clear to auscultation bilaterally with symmetric expansion Cardiovascular exam - regular rate and rhythm Abdominal exam - soft nontender nondistended Extrem Other: Bilateral upper extremity examination shows good capillary refill, no skin lesions noted, normal sensation light touch Left shoulder examination shows decreased range of motion when compared to his right shoulder, 4+ out of 5 strength with supraspinatus testing, positive impingement signs, tenderness over his acromioclavicular joint, no instability Results Reviewed Results Reviewed: X-rays of the patient's left shoulder show severe acromioclavicular joint narrowing, a type 3 acromion, no acute bony abnormalities Assessment & Plan Assessment & Plan (1) Impingement syndrome of left shoulder: Code(s): M75.42 - Impingement syndrome of left shoulder Plan: Shaquille Isaacs presents with progressively worsening left shoulder pain and weakness due to impingement syndrome, acromioclavicular joint arthritis and rotator cuff tendinosis versus possible rotator cuff tearing. I had a lengthy discussion with the patient regarding the treatment options. At this point he has failed continued non operative treatments. The risks and benefits of left shoulder surgery were discussed at length with the patient. The patient wishes to proceed with surgery. Surgery will most likely involve left shoulder diagnostic arthroscopy with distal clavicle excision, acromioplasty and rotator cuff repair should a full-thickness tear be found at the time of the surgery. The patient will be given a prescription for pain medicine on the day of his surgery. He will follow-up as instructed. Feel free to call me at any time should questions regarding his orthopedic management arise. I spent 22 minutes in reviewing the patient's records and imaging studies, seeing the patient and documenting in the medical record. Coding Level of Care Code Est Pt Level 2 (58575) Diagnoses Impingement syndrome of left shoulder M75.42
[2023-02-25 10:02] VITALS: BMI 22.4
== END 2023-02-25 10:17 | disposition home or self-care (01) ==
PROVIDERS: PCP Internal Medicine; Visit Provider Orthopaedic Surgery
DX: M75.42 Impingement syndrome of left shoulder (principal)
CPT/HCPCS: 99212

== ENCOUNTER 2023-02-27 09:44 | Outpatient (AMB) | payer OTHER, SELFPAY ==
[2023-02-27 09:45] VITALS: BP 102/50; PULSE 75; O2SAT 99; BMI 22.8
--- NOTE | 2023-02-27 09:45 | MHC.PC.OV ---
Vital Signs 02/27/23 09:45 Height 5 ft 6 in Weight 141 lb BMI 22.8 BP 102/50 L Blood Pressure Location Lt brachial Position Sitting Pulse 75 Pulse Source Pulse Oximeter Pulse Oximetry (%) 99 Oxygen Delivery Method Room Air Intake Visit Reasons: Pre-Op Left Arm Surgery 03/14/23 Allergies No Known Allergies Allergy (Verified 02/27/23 09:46) Tobacco use date assessed: 10/15/22 Dental Screening Dental Screen Date: 02/27/23 Did you have a dental visit in the last 12 months?: Yes Did you have a dental problem in the last 6 months where you did not have access to dental care?: No Was dental information given to patient?: Patient has dentist HPI HPI Comments History of Present Illness Details 57-year-old male past medical history significant for GERD, hyperlipidemia, hypertension, DM and impingement syndrome left shoulder. Patient of Dr. Petersen presents today for pre-op appointment. HGB A1c 5.1% 02/17/23. Pre-op labs unremarkable, preop EKG normal sinus rhythm, normal ECG. Patient undergoing left shoulder diagnostic arthroscopy under general anesthesia with [facility] [place]/14/[place]. Patient denies any chest pain, palpitations, shortness of breath or syncope. Denies any previous complications to being under general anesthesia. [facility] Medical History History of small bowel obstruction Personal history of nicotine dependence Hyperlipidemia LDL goal <70 Sleeping difficulty Diverticulitis Controlled diabetes mellitus without complication, without long-term current use of insulin Essential hypertension Surgical History History of exploratory laparotomy (~2007) History of colectomy (~2002) History of tooth extraction (~2022) History of colostomy reversal (~2005) Family History Father CVD (cardiovascular disease) Mother CVD (cardiovascular disease) Diabetes Social History Household Members: Spouse and Children Housing: Apartment Alcohol intake: former Patient Tobacco Use Status: Former Tobacco user Quit Date: 2017 Tobacco use type: Cigarette Years Smoked: (onset 22yo, 1-2ppd x 30yrs, 45pyh - quit 2018) e-Cigarette/Vaping Use: Never Used Second Hand Smoke Exposure: No service: No Current occupational status: disabled Current occupational exposures/hazards: No Cognitive needs: No Hearing needs: No Vision needs: No Questionnaire PHQ-9 Over the last 2 weeks, how often have you been bothered by any of the following problems? 1. Little interest or pleasure in doing things: not at all 2. Feeling down, depressed, or hopeless: not at all 3. Trouble falling or staying asleep, or sleeping too much: not at all 4. Feeling tired or having little energy: not at all 5. Poor appetite or overeating: not at all 6. Feeling bad about yourself - or that you are a failure or have let yourself or your family down: not at all 7. Trouble concentrating on things, such as reading the newspaper or watching television: not at all 8. Moving or speaking so slowly that other people could have noticed. Or the opposite - being so fidgety or restless that you have been moving around a lot more than usual: not at all 9. Thoughts that you would be better off or of hurting yourself in some way: not at all Total score: 0 Depression Screening Interpretation: Negative Depression Screening Done: Yes 60397 - PHQ-9 Billing: Yes Source: Developed by Drs. Koko Dupree, Deejay Albright and colleagues, with an educational hope from [employer]. Thrive Questionnaire Date Thrive assessed: 10/15/22 AUDIT C Alcohol Use Questionnaire (AUDIT-C) 1. How often do you have a drink containing alcohol?: Never Total Score: 0 CHRIS-7 AMB Questionnaire CHRIS-7 Date CHRIS - 7 assessed: 10/15/22 Source: Developed by Drs. Koko Dupree, Deejay Albright and colleagues, with an educational hope from [employer]. Review of Systems Const Denies chills, Denies fatigue, Denies fever(s) and Denies poor appetite Eyes Denies no additional complaints ENT Reports Normal hearing present Card Denies chest pain, Denies syncope, Denies rapid heart rate and Denies dyspnea Resp Denies cough and Denies dyspnea GI Denies change in stool character, Denies constipation, Denies diarrhea, Denies nausea and Denies vomiting Denies dysuria, Denies urinary frequency and Denies urinary urgency Neuro Reports Normal hearing present, Denies confusion and Denies syncope Psych Denies confusion Endo Denies fatigue Physical exam (Primary Care) Vital Signs: Last Vital Signs Pulse 75 02/27/23 09:45 BP 102/50 L 02/27/23 09:45 Pulse Ox 99 02/27/23 09:45 Oxygen Delivery Method Room Air 02/27/23 09:45 BMI result Body Mass Index 22.8 Tobacco/Smoking Status: Tobacco use Status Tobacco use date assessed 10/15/22 02/27/23 09:47 Patient Tobacco Use Status Former Tobacco user 02/27/23 09:47 Tobacco use type Cigarette 02/27/23 09:47 e-Cigarette/Vaping Use Never Used 02/27/23 09:47 PHQ-9: PHQ-9 Score PHQ-9: Total score 0 02/27/23 09:47 Depression Screening Interpretation: Negative Thrive Assessment: Date of Thrive Assessment Date Thrive assessed 10/15/22 02/27/23 09:47 Const General: No confusion Orientation/consciousness: No confusion HENMT Head: Yes normocephalic and Yes atraumatic Eyes Conjunctivae: conjunctivae normal Chest Chest palpation & inspection: normal inspection of the chest Resp Effort & Inspection: normal respiratory effort Auscultation: clear to auscultation bilaterally, no crackles, no rhonchi and no wheezes Cardio Rate: regular rate Rhythm: regular rhythm Heart sounds: S1 normal heart sound present and S2 normal heart sound present GI Inspection: Yes normal to inspection Neuro General: No confusion Cranial nerves: Yes Normal hearing present Extrem General: No edema Assessment and Plan Assessment & Plan (1) Preop examination: Code(s): Z01.818 - Encounter for other preprocedural examination Plan: Review of preop labs and EKG, no further workup needed at this time and patient can proceed with scheduled surgery. [facility] surgical Risk: 0.1%, Risk of myocardial infarction or cardiac arrest, intraoperatively or up to 30 days post-op. Patient advised to hold metformin 48 hours prior to procedure and resume following surgery. Patient advised to avoid any NSAIDs or blood thinning medication 1 week prior to procedure (2) Controlled diabetes mellitus without complication, without long-term current use of insulin: Code(s): E11.9 - Type 2 diabetes mellitus without complications Qualifiers: Diabetes mellitus type: type 2 Qualified Code(s): E11.9 - Type 2 diabetes mellitus without complications Plan: Continue on current medications. Hemoglobin A1c 5.1% Medications: Refilled dulaglutide (Trulicity) 0.75 mg (0.5 mL) subcut QWEEK 90 days 6.5 mL 1RF E11.9 - Type 2 diabetes mellitus without complications Coding Level of Care Code Est Pt Level 3 (99550) Diagnoses Preop examination Z01.818 Controlled type 2 diabetes mellitus without complication, without long-term current use of insulin E11.9 Diabetes mellitus type: type 2
== END 2023-02-27 11:03 | disposition home or self-care (01) ==
PROVIDERS: PCP Internal Medicine; Visit Provider Nurse Practitioner Family
DX: Z01.818 Encounter for other preprocedural examination (principal); E11.9 Type 2 diabetes mellitus without complications
CPT/HCPCS: 99213

== ENCOUNTER 2023-04-25 06:46 | Day surgery (SDC) | payer OTHER, SELFPAY ==
[2023-04-23 14:34] VITALS: BMI 22.8
--- NOTE | 2023-04-24 09:56 | HO.ANESPROP2 ---
Documented by User: Shelli Richard NP 04/24/23 10:00 HPI - Anesthesia Eval Consult details Narrative: 57yo M for Left Shoulder Arthroscopy distal clavicle Excision, acromioplasty, possible rotator cuff repair Medically optimized Anesthesia Pre-Procedure Meds Is the patient on any of the following meds?: Dulaglutide (Trulicity) PMFSH Active Problems Active Problems: All Active Problems (Updated 01/14/23 @ 12:14 by Juan M Delgado MD) Impingement syndrome of left shoulder (Acute) Controlled diabetes mellitus without complication, without long-term current use of insulin (Acute) Essential hypertension (Acute) Hyperlipidemia LDL goal <70 (Acute) Personal history of nicotine dependence (Acute) Sleeping difficulty (Acute) Chronic GERD (Acute) Painful arc syndrome of right shoulder (Acute) Past Medical History Medical History History of small bowel obstruction Personal history of nicotine dependence Hyperlipidemia LDL goal <70 Sleeping difficulty Diverticulitis Controlled diabetes mellitus without complication, without long-term current use of insulin Essential hypertension Family History Family History Father CVD (cardiovascular disease) Mother CVD (cardiovascular disease) Diabetes Surgical History Surgical History History of exploratory laparotomy (~2007) History of colectomy (~2002) History of tooth extraction (~2022) History of colostomy reversal (~2005) Social History Social History Household Members: Spouse and Children Housing: Apartment Alcohol intake: former Patient Tobacco Use Status: Former Tobacco user Quit Date: 7 years ago Tobacco use type: Cigarette Years Smoked: (onset 22yo, 1-2ppd x 30yrs, 45pyh - quit 2017) e-Cigarette/Vaping Use: Never Used Second Hand Smoke Exposure: No Use of substances other than those prescribed or required for medical reasons: No Are you DNR?: No Advance Directives: No Advance Directives Information Provided: Yes service: No Current occupational status: disabled Current occupational exposures/hazards: No Cognitive needs: No Hearing needs: No Vision needs: No Meds Allergies Allergy/AdvReac Type Severity Reaction Status Date / Time No Known Allergies Allergy Verified 04/25/23 07:16 Active Medications: Current Medications Cefazolin Sodium/Dextrose (Ancef) 2 gm in 50 mls @ 100 mls/hr IV PREOP ONE Stop: 04/25/23 05:14 Exam Height,Weight and Vital Signs: Height 5 ft 6 in Weight 63.957 kg Pertinent Lab Results Pertinent Lab Results: Laboratory Tests 02/25/23 08:04 WBC 7.4 Hgb 14.0 Hct 42.7 Plt Count 463 H Sodium 139 Potassium 4.2 Chloride 104 Carbon Dioxide 25 BUN 9 Creatinine 0.73 Narrative Narrative: EKG 02/2023 Vent. Rate : 062 BPM Atrial Rate : 062 BPM P-R Int : 172 ms QRS Dur : 088 ms QT Int : 386 ms P-R-T Axes : 058 013 044 degrees QTc Int : 391 ms Normal sinus rhythm Normal ECG When compared with ECG of 08-APR-2019 01:02, No significant change was found Assessment and Plan Assessment Anesthesia Assessment: Chart Reviewed Documented by User: Felix Otoole MD 04/25/23 08:07 HPI - Anesthesia Eval Anesthesia Pre-Procedure Meds If Yes to any meds - educate patient: Pt education - increased risk of aspiration PMFSH Past Medical History Medical History History of small bowel obstruction Personal history of nicotine dependence Hyperlipidemia LDL goal <70 Sleeping difficulty Diverticulitis Controlled diabetes mellitus without complication, without long-term current use of insulin Essential hypertension Family History Family History Father CVD (cardiovascular disease) Mother CVD (cardiovascular disease) Diabetes Family history of problems with anesthesia: No Surgical History Surgical History History of exploratory laparotomy (~2007) History of colectomy (~2002) History of tooth extraction (~2022) History of colostomy reversal (~2005) History of Problems with Anesthesia: No Social History Social History Household Members: Spouse and Children Housing: Apartment Alcohol intake: former Patient Tobacco Use Status: Former Tobacco user Quit Date: 7 years ago Tobacco use type: Cigarette Years Smoked: (onset 22yo, 1-2ppd x 30yrs, 45pyh - quit 2017) e-Cigarette/Vaping Use: Never Used Second Hand Smoke Exposure: No Use of substances other than those prescribed or required for medical reasons: No Are you DNR?: No Advance Directives: No Advance Directives Information Provided: Yes service: No Current occupational status: disabled Current occupational exposures/hazards: No Cognitive needs: No Hearing needs: No Vision needs: No Meds Allergies Allergy/AdvReac Type Severity Reaction Status Date / Time No Known Allergies Allergy Verified 04/25/23 07:16 Exam Airway Mallampati Class: II TM Dist: >3cm Neck ROM: Limited Heart: rrr Lungs: cta Assessment and Plan Assessment Anesthesia Assessment: Anesthesia Plan Discussed Final Anesthetic Review Family History of Problems with Anesthesia: No History of Problems with Anesthesia: No NPO: Yes ASA Class: III Final Preanesthetic Review: No Changes in Pt Med Stat, Meds/Allgs Chart Reviewed, Consent Obtained/Reviewed and Anes Risks/Benef Reviewed Patient Risk: Intermediate Procedure Risk: Intermediate Anesthetic Plan Anesthetic Plan: GA, Regional Block and Agree w/ Assess. and Plan Disposition: Standard PACU
[2023-04-25] VITALS (7 sets, daily range): BP systolic 111–135; BP diastolic 63–76; PULSE 70–83; RESP 14–18; TEMP 36.2–36.3; O2SAT 96–100; BMI 23.6
[2023-04-25] MEDS: Lactated Ringers 1,000 ML 100 ML IVCONT (07:34)
[2023-04-25 07:39] LABS: Glucose, Whole Blood 175 mg/dL (60-115)
--- NOTE | 2023-04-25 10:25 | PM.OP ---
Brief Operative Note Date of Service: 04/25/23 Pre-op diagnosis: Left shoulder impingement syndrome, left shoulder acromioclavicular joint arthritis, left shoulder adhesive capsulitis Post-op diagnosis: same Procedure: Left shoulder diagnostic arthroscopy with left shoulder arthroscopic distal clavicle excision, left shoulder arthroscopic acromioplasty, left shoulder arthroscopic anterior capsular release, left shoulder manipulation under anesthesia Implants: none Surgeon: Juan M Delgado MD Anesthesia: GLMA and regional Was an Men'S Swim Coach used for this Procedure?: No Estimated blood loss (mL): 10 Pathology: none sent Condition: stable Disposition: PACU
--- NOTE | 2023-04-25 10:26 | P.OP_ITS ---
Operative Note Operative Note Date of Service: 04/25/23 Narrative: After the patient was identified as Ismael Corbin and his left shoulder was initialed by myself the patient was brought to the holding area where a left shoulder interscalene regional block was performed by the anesthesiologist in routine fashion. The patient was then brought to the operating room where general anesthesia was induced by the anesthesiologist in routine fashion. The patient was given 2 g of IV Ancef preoperatively for infection prophylaxis. Examination under anesthesia of the patient's left shoulder showed decreased range of motion when compared to the right shoulder. The patient's left sh oulder had forward flexion to 110 degrees compared to 170 degrees, external rotation to 30 degrees compared to 60 degrees, and internal rotation to 40 degrees compared to 50 degrees. The patient was gently positioned in the beach chair position with all bony prominences well padded. The patient's left shoulder region and upper extremity were prepped and draped in sterile fashion. A formal time-out was completed. A #11 scalpel blade was used to make a posterior portal 2 cm inferior and 1 cm medial to the posterolateral corner of the acromion. Blunt trocar technique was used to enter the glenohumeral joint in routine fashion. An anterior portal was made just lateral to the coracoid process after proper positioning was confirmed using a spinal needle. Diagnostic arthroscopy showed minimal degenerative changes of the glenoid and humeral head articular surfaces. There was no evidence of rotator cuff tearing. There was no evidence of injury to the biceps tendon or its insertion onto the glenoid. There was inflammation of the anterior joint capsule consistent with adhesive capsulitis. The ArthroCare Wand was then used to perform an anterior capsular release between the inferior border of the biceps tendon and the superior border of the subscapularis tendon. The arthroscope was then placed from the posterior portal into the subacromial space. A lateral portal was made 2 fingerbreadths lateral to the anterior lateral corner of the acromion. The ArthroCare Wand was used to ablate soft tissues along the undersurface of the acromion as well as to excise the coracoacromial ligament. There was a sharp spur along the undersurface of the acromion which was removed using the hooded bur. The arthroscope was then placed into the lateral portal and the acromioplasty was completed with the bur in the posterior portal using the posterior aspect of the acromion as a cutting block. The ArthroCare Wand was then brought in through the anterior portal and was used to ablate soft tissues along the acromioclavicular joint and distal clavicle. The posterior and superior ligamentous structures were left intact. A distal clavicle excision of 8 mm was performed using the hooded bur. Any remaining bursal tissue was removed using the arthroscopic shaver. The subacromial space was irrigated and then drained. All arthroscopic instruments were removed. A gentle manipulation under anesthesia was then performed. Full passive range of motion was easily obtained. The 3 portals were closed with 3-0 nylon interrupted suture. The subacromial space was injected with Marcaine. Dry sterile dressing was placed over all incisions. The patient's left upper extremity was placed into a sling. The patient was awoken and extubated in the operating room. The patient was transferred to the recovery room in stable condition.
[2023-04-25] MEDS: cefTRIAXone sodium 1 GM in 0.9 % Sodium Chloride 50 ML IV (10:32)
== END 2023-04-25 11:45 | disposition home or self-care (01) ==
PROVIDERS: PCP Internal Medicine; Visit Provider Orthopaedic Surgery
PROC: (CPT 29805; principal; 2023-04-25 09:00)
DX: M75.42 Impingement syndrome of left shoulder (principal); M75.02 Adhesive capsulitis of left shoulder; M19.012 Primary osteoarthritis, left shoulder; I10 Essential (primary) hypertension; E78.5 Hyperlipidemia, unspecified; E11.9 Type 2 diabetes mellitus without complications; Z79.1 Long term (current) use of non-steroidal anti-inflammatories (NSAID); Z87.19 Personal history of other diseases of the digestive system; Z79.84 Long term (current) use of oral hypoglycemic drugs; Z79.899 Other long term (current) drug therapy; Z90.49 Acquired absence of other specified parts of digestive tract; Z87.891 Personal history of nicotine dependence
CPT/HCPCS: 29824; 29825; 29826; 82947; J0131; J0171; J0665; J0690; J0696; J1100; J1885; J2405; J2704; J2795

== ENCOUNTER → 2023-04-25 06:46 | Outpatient (BNV) | payer OTHER, SELFPAY | PROVIDERS: PCP Internal Medicine; Visit Provider Orthopaedic Surgery | DX: M75.02 Adhesive capsulitis of left shoulder (principal); M75.42 Impingement syndrome of left shoulder; M19.012 Primary osteoarthritis, left shoulder | CPT/HCPCS: 29824; 29825; 29826 ==

== ENCOUNTER 2023-04-30 13:11 | Outpatient (AMB) | payer OTHER, SELFPAY ==
--- NOTE | 2023-04-30 13:28 | MHC.OFFVIS ---
Intake Intake Visit Reasons: left shoulder surgery Intake Note: Ismael is a 57 year old male who presents today for a post operative appointment s/p Left shoulder surgery performed on 04/25/2023. He complains of increased pain, he is feeling very itchy from surgical dressing. He has been doing gentle stretching exercises. He takes oxycodone which gives him fairly good relief. Allergies No Known Allergies Allergy (Verified 04/30/23 13:35) Medication List - Last Reconciled 04/30/23 by Juan M Delgado MD atorvastatin 40 mg PO DAILY blood sugar diagnostic (FreeStyle Test strips) Use 1 test strip once a day blood-glucose meter As directed dulaglutide (Trulicity) 0.75 mg (0.5 mL) subcut QWEEK 90 days hydroxyzine HCl 12.5 mg (1/2 x 25 mg) PO BEDTIME PRN ibuprofen 800 mg PO Q8H PRN 30 days metformin 1,000 mg PO DAILY 90 days omeprazole 20 mg PO DAILY 90 days oxycodone 10 mg (2 x 5 mg) PO Q4H PRN tramadol 50 mg PO Q6H PRN 30 days PFSH Medical History History of small bowel obstruction Personal history of nicotine dependence Hyperlipidemia LDL goal <70 Sleeping difficulty Diverticulitis Controlled diabetes mellitus without complication, without long-term current use of insulin Essential hypertension Surgical History History of exploratory laparotomy (~2007) History of colectomy (~2002) History of tooth extraction (~2022) History of colostomy reversal (~2005) Family History Father CVD (cardiovascular disease) Mother CVD (cardiovascular disease) Diabetes Social History Household Members: Spouse and Children Housing: Apartment Alcohol intake: former Patient Tobacco Use Status: Former Tobacco user Quit Date: 7 years ago Tobacco use type: Cigarette Years Smoked: (onset 22yo, 1-2ppd x 30yrs, 45pyh - quit 2017) e-Cigarette/Vaping Use: Never Used Second Hand Smoke Exposure: No service: No Current occupational status: disabled Current occupational exposures/hazards: No Cognitive needs: No Hearing needs: No Vision needs: No Physical Exam Extrem Other: Left shoulder examination shows that the surgical incisions are healing well, no erythema, no signs of infection, moderate discomfort with active and passive range of motion Assessment & Plan Assessment & Plan (1) Aftercare following left shoulder joint replacement surgery: Code(s): Z47.1 - Aftercare following joint replacement surgery; Z96.612 - Presence of left artificial shoulder joint Plan Mr. Ruth Corbin is doing well after undergoing left shoulder arthroscopic surgery on 04/25/2023. I will leave his sutures in for now because his surgery was just 5 days ago. His dressing was changed to just Band-Aids. This should help reduce the itching from the tape. I did refill his prescription for oxycodone. He is encouraged to continue with his home stretching program. He will follow up next week as scheduled. Feel free to call me at any time should questions regarding his orthopedic management arise. Medications: Refilled oxycodone Partial Fill upon patient request. 10 mg (2 x 5 mg) PO Q4H PRN 40 tabs 0RF pain Coding Level of Care Code Global (19322) Diagnoses Aftercare following left shoulder joint replacement surgery Z47.1; Z96.612
== END 2023-04-30 13:46 | disposition home or self-care (01) ==
PROVIDERS: PCP Internal Medicine; Visit Provider Orthopaedic Surgery
DX: Z47.1 Aftercare following joint replacement surgery (principal); Z96.612 Presence of left artificial shoulder joint
CPT/HCPCS: 99024

== ENCOUNTER → 2023-04-30 13:11 | Outpatient (BNVA) | payer OTHER, SELFPAY | PROVIDERS: PCP Internal Medicine; Visit Provider Orthopaedic Surgery | DX: Z47.1 Aftercare following joint replacement surgery (principal); Z96.612 Presence of left artificial shoulder joint; Z79.891 Long term (current) use of opiate analgesic | CPT/HCPCS: 99212 ==

== ENCOUNTER 2023-05-08 09:15 | Outpatient (AMB) | payer OTHER, SELFPAY ==
--- NOTE | 2023-05-08 09:22 | A.OFFVIS_ITS ---
Intake Intake Visit Reasons: PO-Lt RTC 04/25/23 Intake Note: Cindi 57 year old male presents today for a post operative appointment s/p left RTC 04/25/23. Patient reports still having pain and discomfort. He states that his pain is at a 7-8/10 on the pain scale. Pain is worse when sleeping. 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 He continues to have pain and discomfort in his left shoulder which is improving day by day. He rates the pain as 7 on the scale of 0-10 and his pain is aggravated with sleeping. He is doing well otherwise and has no other concerns today. [facility] Medical History History of small bowel obstruction Personal history of nicotine dependence Hyperlipidemia LDL goal <70 Sleeping difficulty Diverticulitis Controlled diabetes mellitus without complication, without long-term current use of insulin Essential hypertension Surgical History History of exploratory laparotomy (~2007) History of colectomy (~2002) History of tooth extraction (~2022) History of colostomy reversal (~2005) Family History Father CVD (cardiovascular disease) Mother CVD (cardiovascular disease) Diabetes Social History Household Members: Spouse and Children Housing: Apartment Alcohol intake: former Patient Tobacco Use Status: Former Tobacco user Quit Date: 7 years ago Tobacco use type: Cigarette Years Smoked: (onset 22yo, 1-2ppd x 30yrs, 45pyh - quit 2017) e-Cigarette/Vaping Use: Never Used Second Hand Smoke Exposure: No service: No Current occupational status: disabled Current occupational exposures/hazards: No Cognitive needs: No Hearing needs: No Vision needs: No Review of Systems Const All systems reviewed & are unremarkable except as noted in HPI and below Physical Exam Extrem Other: Left shoulder: Incision clean, dry and intact. No redness, no drainage from the incision site. Forward flexion to 45 degrees, external rotation to 30 degrees. NVI. Results Reviewed Results Reviewed: Date of Service: 04/25/23 Pre-op diagnosis: Left shoulder impingement syndrome, left shoulder acromioclavicular joint arthritis, left shoulder adhesive capsulitis Post-op diagnosis: same Procedure: Left shoulder diagnostic arthroscopy with left shoulder arthroscopic distal clavicle excision, left shoulder arthroscopic acromioplasty, left shoulder arthroscopic anterior capsular release, left shoulder manipulation under anesthesia Implants: none Surgeon: Juan M Delgado MD Assessment & Plan Assessment & Plan (1) Impingement syndrome of left shoulder: Code(s): M75.42 - Impingement syndrome of left shoulder Plan Sutures removed today, steri strips applied. He will discontinue the use of sling and begin physical therapy to restore his motion and work on periscapular stabilization and RTC strengthening. I also refilled his oxycodone and weaned it down to 5 mg every 6 hours. I did explain him not to tramadol with this medication. He will see us back in [address] Delgado, sooner if needed. Orders: Orders PT Evaluation and Treatment Today M75.42 - Impingement syndrome of left shoulder Medications: Changed From oxycodone Partial Fill upon patient request. 10 mg (2 x 5 mg) PO Q4H PRN 40 tabs 0RF pain To oxycodone Partial Fill upon patient request. 5 mg PO Q6H PRN 28 tabs 0RF pain Patient Instructions: Scribed for Cb Carson PA-C, by Seng Breaux medical psychotherapist, on 05/08/2023 at 9:30 AM EST. I, Cb Carson PA-C, have personally reviewed and agree with the information entered by the scribe. Coding Level of Care Code Global (41292) Diagnoses Impingement syndrome of left shoulder M75.42
== END 2023-05-08 09:51 | disposition home or self-care (01) ==
PROVIDERS: PCP Internal Medicine; Visit Provider Physician Assistant
DX: M75.42 Impingement syndrome of left shoulder (principal)
CPT/HCPCS: 99024

== ENCOUNTER → 2023-05-08 09:15 | Outpatient (BNVA) | payer OTHER, SELFPAY | PROVIDERS: PCP Internal Medicine; Visit Provider Physician Assistant | DX: Z47.89 Encounter for other orthopedic aftercare (principal); M75.42 Impingement syndrome of left shoulder | CPT/HCPCS: 99212 ==

== ENCOUNTER 2023-06-04 09:39 | Outpatient (AMB) | payer OTHER, SELFPAY ==
--- NOTE | 2023-06-04 09:40 | MHC.OFFVIS ---
Intake Vital Signs 06/04/23 09:43 Height 5 ft 6 in Weight 148 lb BMI 23.9 Intake Visit Reasons: PO-Lt shldr SAD DCE BRIAN 04/25/23 Intake Note: Ismael lakhani 57 year old male presents today with complaints of mild to moderate discomfort in his left shoulder after undergoing left shoulder arthroscopic surgery on 04/25/2023. He denies any fevers or chills. He has been taking Tylenol, ibuprofen and oxycodone which gave him good relief. He is due to start formal physical therapy in 2 days. Allergies No Known Allergies Allergy (Verified 05/08/23 09:29) Medication List - Last Reconciled 06/04/23 by Juan M Delgado MD atorvastatin 40 mg PO DAILY blood sugar diagnostic (FreeStyle Test strips) Use 1 test strip once a day blood-glucose meter As directed dulaglutide (Trulicity) 0.75 mg (0.5 mL) subcut QWEEK 90 days hydroxyzine HCl 12.5 mg (1/2 x 25 mg) PO BEDTIME PRN ibuprofen 800 mg PO Q8H PRN 30 days lisinopril 2.5 mg PO DAILY 90 days metformin 1,000 mg PO DAILY 90 days omeprazole 20 mg PO DAILY 90 days oxycodone 5 mg PO Q6H PRN tramadol 50 mg PO Q6H PRN 30 days PFSH Medical History History of small bowel obstruction Personal history of nicotine dependence Hyperlipidemia LDL goal <70 Sleeping difficulty Diverticulitis Controlled diabetes mellitus without complication, without long-term current use of insulin Essential hypertension Surgical History History of exploratory laparotomy (~2007) History of colectomy (~2002) History of tooth extraction (~2022) History of colostomy reversal (~2005) Family History Father CVD (cardiovascular disease) Mother CVD (cardiovascular disease) Diabetes Social History (Reviewed 05/08/23 @ 09:29 by Shannan Cabrera [facility] Household Members: Spouse and Children Housing: Apartment Alcohol intake: former Patient Tobacco Use Status: Former Tobacco user Quit Date: 7 years ago Tobacco use type: Cigarette Years Smoked: (onset 22yo, 1-2ppd x 30yrs, 45pyh - quit 2017) e-Cigarette/Vaping Use: Never Used Second Hand Smoke Exposure: No service: No Current occupational status: disabled Current occupational exposures/hazards: No Cognitive needs: No Hearing needs: No Vision needs: No Physical Exam Vital Signs: BMI result Body Mass Index 23.9 Extrem Other: Left shoulder examination shows that the surgical incisions are well healed, no erythema, slightly decreased range of motion when compared to his right shoulder, mild to moderate discomfort with range of motion, no instability Assessment & Plan Assessment & Plan (1) Left shoulder pain: Code(s): M25.512 - Pain in left shoulder Plan Mr. Ruth Corbin continues to do well after undergoing left shoulder arthroscopic surgery on 04/25/2023. I did refill his prescription for oxycodone. The do's and don'ts of lifting were discussed at length with the patient. He will begin formal physical therapy later this week as scheduled. Will contact me prior to his follow-up appointment in 6 weeks should any questions or concerns arise. Feel free to call me at any time should questions regarding his orthopedic management arise. Medications: Refilled oxycodone Partial Fill upon patient request. 5 mg PO Q6H PRN 28 tabs 0RF pain Coding Level of Care Code Global (65571) Diagnoses Left shoulder pain M25.512
[2023-06-04 09:43] VITALS: BMI 23.9
== END 2023-06-04 10:06 | disposition home or self-care (01) ==
PROVIDERS: PCP Internal Medicine; Visit Provider Orthopaedic Surgery
DX: M25.512 Pain in left shoulder (principal)
CPT/HCPCS: 99024

== ENCOUNTER → 2023-06-04 09:39 | Outpatient (BNVA) | payer OTHER, SELFPAY | PROVIDERS: PCP Internal Medicine; Visit Provider Orthopaedic Surgery | DX: Z47.89 Encounter for other orthopedic aftercare (principal); M25.512 Pain in left shoulder; Z98.890 Other specified postprocedural states | CPT/HCPCS: 99212 ==

== ENCOUNTER 2023-06-25 13:00 | Outpatient (RCR) | payer OTHER, SELFPAY ==
--- NOTE | 2023-07-23 14:56 | MHC.PT.DC ---
[facility] [place] [facility] [place] [facility] [place] Office [address] Heather Mccracken [address] [phone] F: [phone] F: [phone] F: [phone] F: [phone] Physical Therapy Discharge Report Diagnosis: LEFT SHOULDER IMPINGEMENT S/P SAD/DCE Date of Surgery: 04/25/23 Date of Evaluation: 06/06/23 Date of Discharge: 07/23/23 Treatments to Date: 4 Cancellations to Date: 5 No Shows to Date: 1 Discharge Status: Patient Elected to Stop Visit Non-compliance Discharge Summary: MULTIPLE CANCELS AND NO SHOWS. ATTEMPTS TO REACH BY PHONE WERE UNSUCCESSFUL, Pt IS DCed FOR NON-COMPLIANCE. Electronically signed by: LISSETH BROWN PT DPT Please sign and return to therapist. Thank you for your referral.
== END 2023-07-23 14:56 | disposition home or self-care (01) ==
LOC: HO.PT 13:00
PROVIDERS: PCP Internal Medicine; Visit Provider Physician Assistant
DX: M75.42 Impingement syndrome of left shoulder (principal)
CPT/HCPCS: 97110; 97161; 97530

== ENCOUNTER 2023-06-26 10:34 | Outpatient (AMB) | payer OTHER, SELFPAY ==
--- NOTE | 2023-06-26 10:37 | MHC.PC.OV ---
Vital Signs 06/26/23 10:38 Height 5 ft 6 in Weight 147 lb BMI 23.7 BP 120/70 Blood Pressure Location Lt brachial Position Sitting Intake Visit Reasons: Annual exam Intake Note: Patient here for an annual physical exam Special Events Planner Required: No Accompanied by: Self / Same As Patient Allergies No Known Allergies Allergy (Verified 06/26/23 10:53) Medication List - Last Reconciled 06/26/23 by Chary Francois MD atorvastatin 40 mg PO DAILY blood sugar diagnostic (FreeStyle Test strips) Use 1 test strip once a day blood-glucose meter As directed dulaglutide (Trulicity) 0.75 mg (0.5 mL) subcut QWEEK 90 days hydroxyzine HCl 12.5 mg (1/2 x 25 mg) PO BEDTIME PRN ibuprofen 800 mg PO Q8H PRN 30 days lisinopril 2.5 mg PO DAILY 90 days metformin 1,000 mg PO DAILY 90 days omeprazole 20 mg PO DAILY 90 days oxycodone 5 mg PO Q8H PRN tramadol 50 mg PO Q6H PRN 30 days Tobacco use date assessed: 06/26/23 Dental Screening Dental Screen Date: 06/26/23 Did you have a dental visit in the last 12 months?: No Did you have a dental problem in the last 6 months where you did not have access to dental care?: No Was dental information given to patient?: Patient has dentist HPI HPI Comments History of Present Illness Details This is a 57-year-old male with diabetes mellitus type 2 that comes for his physical exam. A1c is elevated and I will increase Trulicity. Needs diabetic eye exam. No chest pain or shortness of breath. [facility] Medical History (Updated 06/27/23 @ 19:37 by Chary Francois MD) History of small bowel obstruction Personal history of nicotine dependence Hyperlipidemia LDL goal <70 Sleeping difficulty Diverticulitis Controlled diabetes mellitus without complication, without long-term current use of insulin Essential hypertension Surgical History History of exploratory laparotomy (~2007) History of colectomy (~2002) History of tooth extraction (~2022) History of colostomy reversal (~2005) Family History Father CVD (cardiovascular disease) Mother CVD (cardiovascular disease) Diabetes Social History Household Members: Spouse and Children Housing: Apartment Alcohol intake: former Patient Tobacco Use Status: Former Tobacco user Quit Date: 7 years ago Tobacco use type: Cigarette Years Smoked: (onset 22yo, 1-2ppd x 30yrs, 45pyh - quit 2018) e-Cigarette/Vaping Use: Never Used Second Hand Smoke Exposure: No service: No Current occupational status: disabled Current occupational exposures/hazards: No Cognitive needs: No Hearing needs: No Vision needs: No Questionnaire PHQ-9 Over the last 2 weeks, how often have you been bothered by any of the following problems? 1. Little interest or pleasure in doing things: not at all 2. Feeling down, depressed, or hopeless: not at all 3. Trouble falling or staying asleep, or sleeping too much: not at all 4. Feeling tired or having little energy: not at all 5. Poor appetite or overeating: not at all 6. Feeling bad about yourself - or that you are a failure or have let yourself or your family down: not at all 7. Trouble concentrating on things, such as reading the newspaper or watching television: not at all 8. Moving or speaking so slowly that other people could have noticed. Or the opposite - being so fidgety or restless that you have been moving around a lot more than usual: not at all 9. Thoughts that you would be better off or of hurting yourself in some way: not at all Total score: 0 Depression Screening Interpretation: Negative Depression Screening Done: Yes 46128 - PHQ-9 Billing: Yes Source: Developed by Drs. Koko Dupree, Charito Ruffin, Deejay Parisi and colleagues, with an educational hope from [employer]. Thrive Questionnaire Date Thrive assessed: 06/26/23 I am a: Patient What is your living situation today?: I have a steady place to live Within the past 12 months, did the food you bought not last and you didn't have the money to get more?: Never true Within the past 12 months, did you worry whether your food would run out before you got money to buy more?: Never true Do you have trouble paying for medicines?: No Do you have trouble getting transportation to medical appointments?: No Do you have trouble paying your heating and electricity bill?: No Do you have trouble taking care of your child, family member or friend?: No Do you have trouble with day-to-day activities such as bathing, preparing meals, shopping, managing finances, etc.?: No Are you currently unemployed and looking for a job?: No Are you interested in more education?: No Please select the resources that you would like help with: None Currently or been in a relationship where the following occur: no concerns reported THRIVE Score: 0 AUDIT C Alcohol Use Questionnaire (AUDIT-C) 1. How often do you have a drink containing alcohol?: Never Total Score: 0 CHRIS-7 AMB Questionnaire CHRIS-7 Date CHRIS - 7 assessed: 06/26/23 Feeling nervous, anxious, or on edge: 0 = Not at all Not being able to stop or control worryin = Not at all Worrying too much about different things: 0 = Not at all Trouble relaxin = Not at all Being so restless that it is hard to sit still: 0 = Not at all Becoming easily annoyed or irritable: 0 = Not at all Feeling afraid as if something awful might happen: 0 = Not at all Total CHRIS-7 score (0-4 normal; 5-9 mild; 10-14 moderate; 15-21 severe): 0 Source: Developed by Drs. Koko Dupree, Charito Ruffin, Deejay Parisi and colleagues, with an educational hope from [employer]. CHRIS-7 Assessment Billing CHRIS-7 Assessment Tool: CHRIS-7 Assessment 86578 Review of Systems Const All systems reviewed & are unremarkable except as noted in HPI and below Eyes Reports no additional complaints, Denies change in vision and Denies other visual disturbances Card Denies chest pain at rest, Denies chest pain with activity, Denies edema, Denies irregular heart rhythm, Denies claudication, Denies dyspnea, Denies dyspnea on exertion, Denies orthopnea, Denies paroxysmal nocturnal dyspnea and Denies slow heart rate Resp Denies cough, Denies dyspnea and Denies dyspnea on exertion GI Denies abdominal pain, Denies change in bowel habits, Denies excessive flatus, Denies nausea and Denies vomiting Denies urinary hesitancy, Denies urinary incontinence and Denies urinary urgency Musc Denies abnormal gait, Denies atrophy, Denies deformity and Denies limited range of motion Skin/Breast Denies bleeding lesions, Denies changing lesions and Denies rash Neuro Denies abnormal gait, Denies behavioral changes, Denies confusion and Denies lack of coordination Psych Denies behavioral changes and Denies confusion Physical exam (Primary Care) Vital Signs: Last Vital Signs BP 120/70 06/26/23 10:38 BMI result Body Mass Index 23.7 Tobacco/Smoking Status: Tobacco use Status Tobacco use date assessed 06/26/23 06/26/23 10:42 Patient Tobacco Use Status Former Tobacco user 06/26/23 10:42 Tobacco use type Cigarette 06/26/23 10:42 e-Cigarette/Vaping Use Never Used 06/26/23 10:42 PHQ-9: PHQ-9 Score PHQ-9: Total score 0 06/26/23 20:04 Depression Screening Interpretation: Negative Thrive Assessment: Date of Thrive Assessment Date Thrive assessed 06/26/23 06/26/23 10:42 Currently or been in a relationship where the following occur: no concerns reported Const General: No confusion Orientation/consciousness: patient oriented x3 and No confusion HENMT Head: Yes normal to inspection, Yes normocephalic and Yes atraumatic Ears: external ears normal General nose exam: Normal external nose present and No nasal discharge present Face and sinus: Yes sinuses nontender Mouth: lip normal Eyes General: appearance normal, both eyes and all related structures Eyelids: Yes eyelids normal Conjunctivae: conjunctivae normal Neck Neck: Yes normal visual inspection and Yes supple Resp Effort & Inspection: normal respiratory effort Auscultation: clear to auscultation bilaterally Cardio Jugular venous distension: no JVD Rate: regular rate Rhythm: regular rhythm Heart sounds: S1 normal heart sound present and S2 normal heart sound present GI Inspection: Yes normal to inspection Palpation (GI): Soft to palpation and nontender Auscultation: normal bowel sounds Skin General skin exam: no rashes or lesions noted Neuro General: patient oriented x3, no focal motor deficits and No confusion Extrem General: Yes full ROM Results AMB Hemoglobin A1c AMB Hemoglobin A1c 7.9 % Last Edit by ESPERANZA Gonzalez on 06/26/23 10:53 Results Reviewed Results Reviewed: Laboratory Last Values Hgb A1c (Clinic) 7.9 % (4.0-6.0) H 06/26/23 10:47 Assessment and Plan Assessment & Plan (1) Physical exam: Code(s): Z00.00 - Encounter for general adult medical examination without abnormal findings Plan: Repeat in a year (2) Type 2 diabetes mellitus with hyperglycemia, without long-term current use of insulin: Code(s): E11.65 - Type 2 diabetes mellitus with hyperglycemia Plan: Continue metformin. Increase Trulicity. A1c goal is equal or less than 7%. Orders: Orders AMB Hemoglobin A1c 06/26/23 E11.9 - Type 2 diabetes mellitus without complications Microalbumin, Random (w Creat) 06/26/23 E11.9 - Type 2 diabetes mellitus without complications Vitamin D 25-OH Total 06/26/23 E55.9 - Vitamin D deficiency, unspecified Comprehensive [place]. Panel Fast 06/26/23 E11.9 - Type 2 diabetes mellitus without complications Lipid Panel 06/26/23 E78.5 - Hyperlipidemia, unspecified Referrals Ophthalmology Referral E11.9 - Type 2 diabetes mellitus without complications Medications: New dulaglutide (Trulicity) 1.5 mg (0.5 mL) subcut QWEEK 2.5 mL 3RF 30 days E11.9 - Type 2 diabetes mellitus without complications Discontinued dulaglutide (Trulicity) every Friday Discontinued Reason: Patient Completed Course 0.75 mg (0.5 mL) subcut QWEEK 90 days 6.5 mL 1RF E11.9 - Type 2 diabetes mellitus without complications Coding Level of Care Code Est Pt Prev Care 40-64y(72846) Diagnoses Physical exam Z00.00 Type 2 diabetes mellitus with hyperglycemia, without long-term current use of insulin E11.65 Additional Codes CHRIS-7 Assessment Billing - CHRIS-7 Assessment Tool: CHRIS-7 Assessment 69520 ([id number]) Time Spent (min) 33
[2023-06-26 10:38] VITALS: BP 120/70; BMI 23.7
== END 2023-06-26 11:07 | disposition home or self-care (01) ==
PROVIDERS: PCP Internal Medicine; Visit Provider Internal Medicine
DX: E11.9 Type 2 diabetes mellitus without complications (principal)
CPT/HCPCS: 83036; 99396

== ENCOUNTER 2023-10-29 06:36 | Outpatient (REF) | payer OTHER, SELFPAY ==
[2023-10-29 08:30] LABS: Alanine Aminotransferase 42 U/L (0-40); Albumin Level 4.1 g/dL (3.5-5.0); Alkaline Phosphatase 70 U/L (39-117); Anion Gap 11 (12-20); Aspartate Amino Transferase 17 U/L (5-37); Bilirubin Total 0.6 mg/dL (0.0-1.0); Blood Urea Nitrogen 8 mg/dL (9-16); Calcium 9.5 mg/dL (8.4-10.2); Carbon Dioxide 28 mmol/L (22-29); Chloride 104 mmol/L (96-108); Cholesterol 120 mg/dL (<200); Estimated Glomerular Filt Rate > 60; Glucose Fasting 177 mg/dL (60-99); HDL Cholesterol 35 mg/dL (>40); LDL Cholesterol Calculated 61 mg/dL (<100); Potassium 3.8 mmol/L (3.3-5.1); Sodium 139 mmol/L (135-145); Total Protein 6.7 g/dL (6.5-8.0); Triglycerides 120 mg/dL (<150)
[2023-10-29 08:44] LABS: Vitamin D 25-OH Total 24.3 ng/mL (>30)
[2023-10-29 08:56] LABS: Creatinine Urine 309.21 mg/dL; Microalbum/Creatinine Ratio Ur 9.3 ug/mg cr (<30)
== END 2023-10-29 06:37 | disposition home or self-care (01) ==
LOC: HO.LAB 06:36
PROVIDERS: PCP Internal Medicine; Visit Provider Internal Medicine
DX: E11.9 Type 2 diabetes mellitus without complications (principal); E55.9 Vitamin D deficiency, unspecified; E78.5 Hyperlipidemia, unspecified
CPT/HCPCS: 36415; 80053; 80061; 82043; 82306; 82570

== ENCOUNTER 2023-10-30 11:53 | Outpatient (AMB) | payer OTHER, SELFPAY ==
[2023-10-30 12:16] VITALS: BP 108/70; BMI 24.0
--- NOTE | 2023-10-30 12:16 | A.OFFPC_ITS ---
Vital Signs 10/30/23 12:16 Height 5 ft 6 in Weight 148 lb 8.081 oz BMI 24.0 BP 108/70 Blood Pressure Location Lt brachial Position Sitting Intake Visit Reasons: dm Intake Note: Patient here for a follow up DM Information Security Manager Required: No Accompanied by: Self / Same As Patient Allergies No Known Allergies Allergy (Verified 10/30/23 12:43) Medication List - Last Reconciled 10/30/23 by Chary Francois MD atorvastatin 40 mg PO DAILY blood sugar diagnostic (FreeStyle Test strips) Use 1 test strip once a day blood-glucose meter As directed dulaglutide (Trulicity) 1.5 mg (0.5 mL) subcut QWEEK 30 days hydroxyzine HCl 12.5 mg (1/2 x 25 mg) PO BEDTIME PRN lisinopril 2.5 mg PO DAILY 90 days metformin 1,000 mg PO DAILY 90 days naproxen 500 mg PO BID PRN omeprazole 20 mg PO DAILY 90 days oxycodone 5 mg PO Q8H PRN tramadol 50 mg PO Q6H PRN 30 days Tobacco use date assessed: 06/26/23 Dental Screening Dental Screen Date: 06/26/23 HPI HPI Comments History of Present Illness Details This is a 57-year-old male with diabetes mellitus type 2, hyperlipidemia, chronic GERD and low vitamin-D that comes today for follow-up on his conditions. A1c has improved. LDL within goal. GERD stable with PPIs. On vitamin-D supplements for his low vitamin-D. Denies any chest pain or shortness on breath. [facility] Medical History (Updated 10/30/23 @ 12:57 by Chary Francois MD) History of small bowel obstruction Personal history of nicotine dependence Hyperlipidemia LDL goal <70 Sleeping difficulty Diverticulitis Controlled diabetes mellitus without complication, without long-term current use of insulin Essential hypertension Surgical History History of exploratory laparotomy (~2007) History of colectomy (~2002) History of tooth extraction (~2022) History of colostomy reversal (~2005) Family History Father CVD (cardiovascular disease) Mother CVD (cardiovascular disease) Diabetes Social History Household Members: Spouse and Children Housing: Apartment Alcohol intake: former Patient Tobacco Use Status: Former Tobacco user Tobacco use type: Cigarette Years Smoked: (onset 22yo, 1-2ppd x 30yrs, 45pyh - quit 2018) e-Cigarette/Vaping Use: Never Used Second Hand Smoke Exposure: No service: No Current occupational status: disabled Current occupational exposures/hazards: No Cognitive needs: No Hearing needs: No Vision needs: No Questionnaire Thrive Questionnaire Date Thrive assessed: 06/26/23 CHRIS-7 AMB Questionnaire CHRIS-7 Date CHRIS - 7 assessed: 06/26/23 Source: Developed by Drs. Koko Dupree, Charito Ruffin, Deejay Parisi and colleagues, with an educational hope from [employer]. Review of Systems Const All systems reviewed & are unremarkable except as noted in HPI and below Card Denies chest pain at rest, Denies chest pain with activity, Denies edema, Denies irregular heart rhythm, Denies claudication, Denies dyspnea, Denies dyspnea on exertion, Denies orthopnea, Denies paroxysmal nocturnal dyspnea and Denies slow heart rate Resp Denies cough, Denies dyspnea and Denies dyspnea on exertion Physical exam (Primary Care) Vital Signs: Last Vital Signs BP 108/70 10/30/23 12:16 BMI result Body Mass Index 24.0 Tobacco/Smoking Status: Tobacco use Status Tobacco use date assessed 06/26/23 10/30/23 12:19 Patient Tobacco Use Status Former Tobacco user 10/30/23 12:19 Tobacco use type Cigarette 10/30/23 12:19 e-Cigarette/Vaping Use Never Used 10/30/23 12:19 Thrive Assessment: Date of Thrive Assessment Date Thrive assessed 06/26/23 10/30/23 12:19 Resp Effort & Inspection: normal respiratory effort Auscultation: clear to auscultation bilaterally Cardio Jugular venous distension: no JVD Rate: regular rate Rhythm: regular rhythm Heart sounds: S1 normal heart sound present and S2 normal heart sound present Extrem General: Yes full ROM Results AMB Hemoglobin A1c AMB Hemoglobin A1c 7.3 % Last Edit by ESPERANZA Gonzalez on 10/30/23 12:2 2 Results Reviewed Results Reviewed: Laboratory Last Values Hgb A1c (Clinic) 7.3 % (4.0-6.0) H 10/30/23 12:12 Assessment and Plan Assessment & Plan (1) Type 2 diabetes mellitus with hyperglycemia, without long-term current use of insulin: Code(s): E11.65 - Type 2 diabetes mellitus with hyperglycemia Plan: Continue metformin twice a day and Trulicity. A1c goal is equal or less than 7%. (2) Hyperlipidemia LDL goal <70: Code(s): E78.5 - Hyperlipidemia, unspecified Plan: Continue statins. LDL goal is less than 70. (3) Chronic GERD: Code(s): K21.9 - Gastro-esophageal reflux disease without esophagitis Plan: Continue PPIs. (4) Hypovitaminosis D: Code(s): E55.9 - Vitamin D deficiency, unspecified Plan: Continue vitamin-D supplements. Orders: Orders AMB Hemoglobin A1c Today E11.65 - Type 2 diabetes mellitus with hyperglycemia Microalbumin, Random (w Creat) 4 Months E11.9 - Type 2 diabetes mellitus [facility] complications Lipid Panel 4 Months E78.5 - Hyperlipidemia, unspecified Vitamin D 25-OH Total 4 Months E55.9 - Vitamin D deficiency, unspecified Comprehensive [place]. Panel Fast 4 Months E11.65 - Type 2 diabetes mellitus with hyperglycemia Medications: New blood-glucose meter (FreeStyle Lite Meter kit) As directed 1 ea 0RF E11.65 - Type 2 diabetes mellitus with hyperglycemia Changed From metformin 1,000 mg PO DAILY 90 days 90 tabs 3RF E11.65 - Type 2 diabetes mellitus with hyperglycemia To metformin 1,000 mg PO BID 90 days 180 tabs 3RF E11.65 - Type 2 diabetes mellitus with hyperglycemia Refilled metformin 1,000 mg PO BID 90 days 180 tabs 3RF E11.65 - Type 2 diabetes mellitus with hyperglycemia Coding Level of Care Code Est Pt Level 4 (69377) Complex EM visit Add On G2211 Diagnoses Type 2 diabetes mellitus with hyperglycemia, without long-term current use of insulin E11.65 Hyperlipidemia LDL goal <70 E78.5 Chronic GERD K21.9 Hypovitaminosis D E55.9 Time Spent (min) 22
== END 2023-10-30 12:56 | disposition home or self-care (01) ==
LOC: HO.HMGH 11:53
PROVIDERS: PCP Internal Medicine; Visit Provider Internal Medicine
DX: E11.65 Type 2 diabetes mellitus with hyperglycemia (principal); E78.5 Hyperlipidemia, unspecified; K21.9 Gastro-esophageal reflux disease without esophagitis; E55.9 Vitamin D deficiency, unspecified
CPT/HCPCS: 83036; 99214; G2211

== ENCOUNTER 2024-01-14 10:16 | Outpatient (AMB) | payer OTHER, SELFPAY ==
[2024-01-14 10:18] VITALS: BP 112/58; PULSE 83; O2SAT 98; BMI 24.1
--- NOTE | 2024-01-14 10:18 | MHC.PC.OV ---
Vital Signs 01/14/24 10:18 Height 5 ft 6 in Weight 149 lb 6 oz BMI 24.1 BP 112/58 L Blood Pressure Location Lt brachial Position Sitting Pulse 83 Pulse Source Pulse Oximeter Pulse Oximetry (%) 98 Oxygen Delivery Method Room Air Intake Visit Reasons: arm pain/ numbness in fingers Service Porter Required: No Accompanied by: Self / Same As Patient Allergies No Known Allergies Allergy (Verified 01/14/24 10:28) Medication List - Last Reconciled 01/14/24 by Chary Francois MD atorvastatin 40 mg PO DAILY blood sugar diagnostic (FreeStyle Test strips) Use 1 test strip once a day blood-glucose meter As directed blood-glucose meter (FreeStyle Lite Meter kit) As directed dulaglutide (Trulicity) 1.5 mg (0.5 mL) subcut QWEEK 30 days hydroxyzine HCl 12.5 mg (1/2 x 25 mg) PO BEDTIME PRN lisinopril 2.5 mg PO DAILY 90 days metformin 1,000 mg PO BID 90 days naproxen 500 mg PO BID PRN omeprazole 20 mg PO DAILY 90 days tramadol 50 mg PO Q6H PRN 30 days Tobacco use date assessed: 06/26/23 Dental Screening Dental Screen Date: 06/26/23 HPI HPI Comments History of Present Illness Details This is a 58-year-old male with diabetes mellitus type 2, hypertension and hyperlipidemia that complains of left hand paresthesia that started about 2 weeks ago involving thumb, index finger, middle finger and ring finger. He had left shoulder surgery in April and still has left shoulder pain but full active range of motion. Will see ortho this month for this matter. A1c within goal. Blood pressure stable. LDL within goal. Compliant with medications. [facility] Medical History (Updated 01/14/24 @ 11:24 by Chary Francois MD) History of small bowel obstruction Personal history of nicotine dependence Hyperlipidemia LDL goal <70 Sleeping difficulty Diverticulitis Controlled diabetes mellitus without complication, without long-term current use of insulin Essential hypertension Surgical History History of exploratory laparotomy (~2007) History of colectomy (~2002) History of tooth extraction (~2022) History of colostomy reversal (~2005) Family History Father CVD (cardiovascular disease) Mother CVD (cardiovascular disease) Diabetes Social History Household Members: Spouse and Children Housing: Apartment Alcohol intake: former Patient Tobacco Use Status: Former Tobacco user Tobacco use type: Cigarette Years Smoked: (onset 22yo, 1-2ppd x 30yrs, 45pyh - quit 2017) e-Cigarette/Vaping Use: Never Used Second Hand Smoke Exposure: No service: No Current occupational status: disabled Current occupational exposures/hazards: No Cognitive needs: No Hearing needs: No Vision needs: No Questionnaire Thrive Questionnaire Date Thrive assessed: 06/26/23 CHRIS-7 AMB Questionnaire CHRIS-7 Date CHRIS - 7 assessed: 06/26/23 Source: Developed by Drs. Koko Dupree, Charito Ruffin, Deejay Parisi and colleagues, with an educational hope from [employer]. Review of Systems Const All systems reviewed & are unremarkable except as noted in HPI and below Card Denies chest pain at rest, Denies chest pain with activity, Denies edema, Denies irregular heart rhythm, Denies claudication, Denies dyspnea, Denies dyspnea on exertion, Denies orthopnea, Denies paroxysmal nocturnal dyspnea and Denies slow heart rate Resp Denies cough, Denies dyspnea and Denies dyspnea on exertion GI Denies abdominal pain, Denies change in bowel habits, Denies excessive flatus, Denies nausea and Denies vomiting Reports hematuria Musc Reports arthralgias, Reports numbness and Reports tingling Neuro Reports numbness and Reports tingling Physical exam (Primary Care) Vital Signs: Last Vital Signs Pulse 83 01/14/24 10:18 BP 112/58 L 01/14/24 10:18 Pulse Ox 98 01/14/24 10:18 Oxygen Delivery Method Room Air 01/14/24 10:18 BMI result Body Mass Index 24.1 Tobacco/Smoking Status: Tobacco use Status Tobacco use date assessed 06/26/23 01/14/24 10:20 Patient Tobacco Use Status Former Tobacco user 01/14/24 10:20 Tobacco use type Cigarette 01/14/24 10:20 e-Cigarette/Vaping Use Never Used 01/14/24 10:20 Thrive Assessment: Date of Thrive Assessment Date Thrive assessed 06/26/23 01/14/24 10:20 Resp Effort & Inspection: normal respiratory effort Auscultation: clear to auscultation bilaterally Cardio Jugular venous distension: no JVD Rate: regular rate Rhythm: regular rhythm Heart sounds: S1 normal heart sound present and S2 normal heart sound present Extrem Other: Positive Phalen and Tinel test in left hand. General: Yes full ROM Results AMB Hemoglobin A1c AMB Hemoglobin A1c 6.0 % Last Edit by ARTI Gomes on 01/14/24 10:34 Results Reviewed Results Reviewed: Laboratory Last Values Hgb A1c (Clinic) 6.0 % (4.0-6.0) 01/14/24 10:34 Assessment and Plan Assessment & Plan (1) Type 2 diabetes mellitus with hyperglycemia, without long-term current use of insulin: Code(s): E11.65 - Type 2 diabetes mellitus with hyperglycemia Plan: Continue metformin and Trulicity. A1c goal is equal or less than 7%. (2) Left shoulder pain: Code(s): M25.512 - Pain in left shoulder Qualifiers: Chronicity: chronic Qualified Code(s): M25.512 - Pain in left shoulder; G89.29 - Other chronic pain Plan: Follow-up with ortho. (3) Left hand paresthesia: Code(s): R20.2 - Paresthesia of skin Plan: Nerve conduction study ordered. (4) Essential hypertension: Code(s): I10 - Essential (primary) hypertension Plan: Continue lisinopril. Blood pressure goal is equal or less than 130/80. (5) Hyperlipidemia LDL goal <70: Code(s): E78.5 - Hyperlipidemia, unspecified Plan: Continue statins. LDL goal is less than 70. Orders: Orders NE nerve conduction velocity Today R20.2 - Paresthesia of skin Lipid Panel Today E78.5 - Hyperlipidemia, unspecified Comprehensive Maxwell. Panel Fast Today E11.65 - Type 2 diabetes mellitus with hyperglycemia XR shoulder LT min 2V Today M25.512 - Pain in left shoulder AMB Hemoglobin A1c Today E11.65 - Type 2 diabetes mellitus with hyperglycemia UA CC w/rflx Micro + Cult Today R30.0 - Dysuria Microalbumin, Random (w Creat) Today E11.9 - Type 2 diabetes mellitus without complications Coding Level of Care Code Est Pt Level 4 (84751) Complex EM visit Add On G2211 Diagnoses Type 2 diabetes mellitus with hyperglycemia, without long-term current use of insulin E11.65 Chronic left shoulder pain M25.512; G89.29 Chronicity: chronic Left hand paresthesia R20.2 Essential hypertension I10 Hyperlipidemia LDL goal <70 E78.5 Time Spent (min) 22
== END 2024-01-14 10:46 | disposition home or self-care (01) ==
PROVIDERS: PCP Internal Medicine; Visit Provider Internal Medicine
DX: E11.65 Type 2 diabetes mellitus with hyperglycemia (principal); M25.512 Pain in left shoulder; G89.29 Other chronic pain; R20.2 Paresthesia of skin; I10 Essential (primary) hypertension; E78.5 Hyperlipidemia, unspecified
CPT/HCPCS: 83036; 99214; G2211

== ENCOUNTER 2024-01-20 06:58 | Outpatient (REF) | payer OTHER, SELFPAY ==
--- NOTE | ~2024-01-20 | XR_ITS ---
EXAMINATION: XR SHOULDER, LEFT CLINICAL INFORMATION: Left shoulder pain. COMPARISON: Left shoulder radiographs dated 01/30/2023. TECHNIQUE: AP external rotation, Grashey, scapular Y, and axillary views of the left shoulder. FINDINGS: Mild widening of the acromioclavicular joint measuring up to 0.7 cm, new when compared to the prior examination. Possible, minimally displaced fracture at the distal clavicle with the fracture gap along the dorsal cortical surface measuring up to 0.2 cm. Mild elevation of the distal clavicle. Findings are consistent with a type II acromioclavicular joint injury as per the Spencer classification system. No joint space narrowing or marginal osteophytes. No osseous erosion. No abnormal soft tissue calcification. XR/XR shoulder LT min 2V IMPRESSION: 1. Type II acromioclavicular joint injury with mild elevation of the distal clavicle and mild widening of the acromioclavicular joint, new when compared to the prior examination. 2. Possible, minimally displaced distal clavicular fracture. Electronically signed by: Eric Hadley MD 01/26/2024 09:14 PM EDT
--- NOTE | 2024-01-20 07:09 | EMG_ITS ---
Left median and ulnar motor and sensory studies were performed. Left radial sensory and median and lateral antecubital sensory studies were performed and needle examination was performed. IMPRESSION: 1. [id number] left median neuropathy across carpal tunnel. 2. Mild left ulnar neuropathy across cubital tunnel. 3. No evidence of a proximal pathology. MD TANYA Noriega/JOSEPH / [id number]
[2024-01-20 08:04] LABS: Appearance Urine Clear; Color Urine Yellow; Glucose Urine UA Negative (Negative); Leukocyte Esterase Urine Small (1+) (Negative); Nitrite Urine Negative (Negative); UMIC TRIGGER UACC YES; Urine Blood Negative (Negative); Urine Ketones Negative (Negative); Urine Protein Negative (Neg-Trace)
[2024-01-20 08:06] LABS: Alanine Aminotransferase 46 U/L (0-40); Albumin Level 4.4 g/dL (3.5-5.0); Alkaline Phosphatase 77 U/L (39-117); Anion Gap 14 (12-20); Aspartate Amino Transferase 16 U/L (5-37); Bilirubin Total 0.8 mg/dL (0.0-1.0); Blood Urea Nitrogen 16 mg/dL (9-16); Calcium 9.9 mg/dL (8.4-10.2); Carbon Dioxide 25 mmol/L (22-29); Chloride 100 mmol/L (96-108); Cholesterol 111 mg/dL (<200); Estimated Glomerular Filt Rate > 60; Glucose Fasting 139 mg/dL (60-99); HDL Cholesterol 32 mg/dL (>40); LDL Cholesterol Calculated 52 mg/dL (<100); Potassium 4.4 mmol/L (3.3-5.1); Sodium 135 mmol/L (135-145); Total Protein 7.2 g/dL (6.5-8.0); Triglycerides 139 mg/dL (<150)
[2024-01-20 08:10] LABS: Bacteria Urine None Seen (None Seen); Hyaline Casts Urine 0-2 /LPF (0-2); RBC Urine 0-2 /HPF (0-2); Squamous Epithelial Cell Urine 0-2 /HPF (0-2); UACC Culture Trigger YES
[2024-01-20 08:19] LABS: Creatinine Urine 165.39 mg/dL; Microalbum/Creatinine Ratio Ur 16.3 ug/mg cr (<30)
== END 2024-01-20 06:59 | disposition home or self-care (01) ==
LOC: HO.NEURO 06:58
PROVIDERS: PCP Internal Medicine; Visit Provider Internal Medicine
DX: R20.2 Paresthesia of skin (principal); M25.512 Pain in left shoulder; E11.65 Type 2 diabetes mellitus with hyperglycemia; E78.5 Hyperlipidemia, unspecified; R82.90 Unspecified abnormal findings in urine
CPT/HCPCS: 36415; 73030; 80053; 80061; 81001; 81003; 82043; 82570; 87086; 95886; 95910

== ENCOUNTER 2024-01-27 08:07 | Outpatient (AMB) | payer OTHER, SELFPAY ==
[2024-01-27 08:08] VITALS: BMI 24.0
--- NOTE | 2024-01-27 08:08 | MHC.OFFVIS ---
Vital Signs 01/27/24 08:08 Height 5 ft 6 in Weight 149 lb BMI 24.0 Intake Visit Reasons: OV Lt shldr pain SAD DCE BRIAN 04/25/23 Intake Note: Ismael is a 58 year old male who presents with complaints of ?numbness and tingling? in his left hand. He states that his symptoms have gotten worse over the last year in spite of continued non operative treatments. The patient did undergo left shoulder arthroscopic surgery on 04/25/2023. He reports mild intermittent discomfort in his left shoulder. He also has intermittent discomfort in his neck. He denies any weakness in his left shoulder. He is due to be evaluated by our hand team next month. Allergies No Known Allergies Allergy (Verified 01/14/24 10:28) Medication List - Last Reconciled 01/27/24 by Juan M Delgado MD atorvastatin 40 mg PO DAILY blood sugar diagnostic (FreeStyle Test strips) Use 1 test strip once a day blood-glucose meter As directed blood-glucose meter (FreeStyle Lite Meter kit) As directed dulaglutide (Trulicity) 1.5 mg (0.5 mL) subcut QWEEK 30 days hydroxyzine HCl 12.5 mg (1/2 x 25 mg) PO BEDTIME PRN lisinopril 2.5 mg PO DAILY 90 days metformin 1,000 mg PO BID 90 days naproxen 500 mg PO BID PRN omeprazole 20 mg PO DAILY 90 days tramadol 50 mg PO Q6H PRN 30 days PFSH Medical History History of small bowel obstruction Personal history of nicotine dependence Hyperlipidemia LDL goal <70 Sleeping difficulty Diverticulitis Controlled diabetes mellitus without complication, without long-term current use of insulin Essential hypertension Surgical History History of exploratory laparotomy (~2007) History of colectomy (~2002) History of tooth extraction (~2022) History of colostomy reversal (~2005) Family History Father CVD (cardiovascular disease) Mother CVD (cardiovascular disease) Diabetes Social History Household Members: Spouse and Children Housing: Apartment Alcohol intake: former Patient Tobacco Use Status: Former Tobacco user Tobacco use type: Cigarette Years Smoked: (onset 22yo, 1-2ppd x 30yrs, 45pyh - quit 2018) e-Cigarette/Vaping Use: Never Used Second Hand Smoke Exposure: No service: No Current occupational status: disabled Current occupational exposures/hazards: No Cognitive needs: No Hearing needs: No Vision needs: No Physical Exam Vital Signs: BMI result Body Mass Index 24.0 Const Other: Well-nourished well-developed very friendly male awake alert and oriented x3 in no acute distress Extrem Other: Left shoulder examination shows that the surgical incisions are well healed, no erythema, almost full range of motion when compared to his right shoulder, 5/5 strength with supraspinatus testing, no tenderness over his acromioclavicular joint Left wrist examination shows positive Tinel's test over his carpal tunnel, mild thenar muscle wasting, decreased sensation to light touch along his median nerve distribution Results Reviewed Results Reviewed: X-rays of the patient's left shoulder show bony changes consistent with distal clavicle excision and acromioplasty, no acute bony abnormalities EMG report of the patient's left upper extremity shows mild to moderate left median neuropathy across carpal tunnel, mild left ulnar neuropathy across the cubital tunnel, no evidence of a proximal pathology Assessment & Plan Assessment & Plan (1) Carpal tunnel syndrome: Code(s): G56.00 - Carpal tunnel syndrome, unspecified upper limb Category: Medical Plan Mr. Ruth Corbin presents with numbness and tingling in his left hand most likely due to carpal tunnel syndrome. The patient will follow up with our hand specialist next month as scheduled. He will continue with his activity modifications in the meantime. Feel free to call me at any time should questions regarding his orthopedic management arise. I spent 20 minutes in reviewing the patient's records and imaging studies, seeing the patient and documenting in the medical record. Coding Level of Care Code Est Pt Level 3 (25941) Complex EM visit Add On G2211 Diagnoses Carpal tunnel syndrome G56.00
== END 2024-01-27 08:27 | disposition home or self-care (01) ==
PROVIDERS: PCP Internal Medicine; Visit Provider Orthopaedic Surgery
DX: G56.02 Carpal tunnel syndrome, left upper limb (principal)
CPT/HCPCS: 99213; G2211

== ENCOUNTER → 2024-01-27 08:07 | Outpatient (BNVA) | payer OTHER, SELFPAY | PROVIDERS: PCP Internal Medicine; Visit Provider Orthopaedic Surgery | DX: M54.2 Cervicalgia (principal); M25.512 Pain in left shoulder; G56.02 Carpal tunnel syndrome, left upper limb | CPT/HCPCS: 99212 ==

== ENCOUNTER 2024-02-09 12:52 | Outpatient (AMB) | payer OTHER, SELFPAY ==
--- NOTE | 2024-02-09 12:58 | MHC.OFFVIS ---
Vital Signs 02/09/24 13:09 Height 5 ft 6 in Weight 149 lb BMI 24.0 Intake Visit Reasons: FC- Clavicle fracture Intake Note: Cindi 58 year old right hand dominant male who presents today for an evaluation of left clavicle fracture. Patient reports his pain has been present for about 3-4 weeks and is pain located at the posterior aspect of shoulder that radiates down his arm. He is unaware of any injury. He states this weekend his pain was intolerable. He has numbness and tingling that travels down his arm to his fingers. He was recently seen by his PCP who ordered xrays and was told having a clavicle fracture. Obstetrician Gynecologist Name: Edgar ID#[id number] Allergies No Known Allergies Allergy (Verified 02/09/24 13:18) Medication List - Last Reconciled 02/09/24 by Cb Carson PA-C atorvastatin 40 mg PO DAILY blood sugar diagnostic (FreeStyle Test strips) Use 1 test strip once a day blood-glucose meter As directed blood-glucose meter (FreeStyle Lite Meter kit) As directed dulaglutide (Trulicity) 1.5 mg (0.5 mL) subcut QWEEK 30 days hydroxyzine HCl 12.5 mg (1/2 x 25 mg) PO BEDTIME PRN lisinopril 2.5 mg PO DAILY 90 days metformin 1,000 mg PO BID 90 days naproxen 500 mg PO BID PRN omeprazole 20 mg PO DAILY 90 days tramadol 50 mg PO Q6H PRN 30 days HPI HPI FC- Clavicle fracture: Details: 58-year-old right hand dominant male who presents to the office today for an evaluation of left clavicle fracture for about 4 weeks. He denies any injury to his clavicle. He was seen by his PCP who ordered x-rays of his shoulder. He currently states he has pain at the posterior aspect of his shoulder that radiates down to his arm. He reports his pain was intolerable this weekend. He also experiences numbness and tingling in his clavicle that radiates down to his arm and fingers. [facility] Medical History History of small bowel obstruction Personal history of nicotine dependence Hyperlipidemia LDL goal <70 Sleeping difficulty Diverticulitis Controlled diabetes mellitus without complication, without long-term current use of insulin Essential hypertension Surgical History History of exploratory laparotomy (~2007) History of colectomy (~2002) History of tooth extraction (~2022) History of colostomy reversal (~2005) Family History Father CVD (cardiovascular disease) Mother CVD (cardiovascular disease) Diabetes Social History Household Members: Spouse and Children Housing: Apartment Alcohol intake: former Patient Tobacco Use Status: Former Tobacco user Tobacco use type: Cigarette Years Smoked: (onset 22yo, 1-2ppd x 30yrs, 45pyh - quit 2017) e-Cigarette/Vaping Use: Never Used Second Hand Smoke Exposure: No service: No Current occupational status: disabled Current occupational exposures/hazards: No Cognitive needs: No Hearing needs: No Vision needs: No Review of Systems Const All systems reviewed & are unremarkable except as noted in HPI and below Physical Exam Vital Signs: BMI result Body Mass Index 24.0 Extrem Other: Left shoulder: Normal to inspection. He has mild tenderness over AC joint. He also c/o pain with active and passive ROM. NVI. Office Procedures Fracture Care Fracture Billing Code: Fracture Billing Code Assessment & Plan Assessment & Plan (1) Clavicular fracture: Code(s): S42.009A - Fracture of unspecified part of unspecified clavicle, initial encounter for closed fracture Category: Medical (2) Impingement syndrome of left shoulder: Code(s): M75.42 - Impingement syndrome of left shoulder Category: Medical Plan I explained to the patient that there is no surgical intervention warranted this time for what appears to be a subtle non displaced distal clavicle evulsion. I recommend him physical therapy and modification of activities such as no lifting overhead and use anti-inflammatories. Patient is somewhat frustrated with the recommendation. He had a left shoulder surgery with Dr. Delgado in 2022 and is adamant about seeing him to know why he has been having shoulder pain. An appointment will be booked to discuss this further. Patient Instructions: Scribed for Cb Carson PA-C, by Seng Breaux medical apparatus model maker, on 02/09/2024 at 1:15 PM EST.? I, Cb Carson PA-C, have personally reviewed and agree with the information entered by the scribe. Coding Level of Care Code Est Pt Level 3 (15392) Complex EM visit Add On G2211 Diagnoses Clavicular fracture S42.009A Impingement syndrome of left shoulder M75.42 CPT Codes Fracture Care - Fracture Billing Code: Fracture Billing Code ([id number])
[2024-02-09 13:09] VITALS: BMI 24.0
== END 2024-02-09 13:55 | disposition home or self-care (01) ==
PROVIDERS: PCP Internal Medicine; Visit Provider Physician Assistant
DX: S42.002D Fracture of unspecified part of left clavicle, subsequent encounter for fracture with routine healing (principal); M75.42 Impingement syndrome of left shoulder
CPT/HCPCS: 99213; G2211

== ENCOUNTER → 2024-02-09 12:52 | Outpatient (BNVA) | payer OTHER, SELFPAY | PROVIDERS: PCP Internal Medicine; Visit Provider Physician Assistant | DX: S42.002A Fracture of unspecified part of left clavicle, initial encounter for closed fracture (principal); M75.42 Impingement syndrome of left shoulder; X58.XXXA Exposure to other specified factors, initial encounter; Y93.9 Activity, unspecified; Y92.9 Unspecified place or not applicable; Y99.9 Unspecified external cause status | CPT/HCPCS: 99212 ==

== ENCOUNTER 2024-02-25 11:57 | Outpatient (AMB) | payer OTHER, SELFPAY ==
--- NOTE | 2024-02-25 12:37 | MHC.OFFVIS ---
Vital Signs 02/25/24 12:50 Height 5 ft 6 in Weight 149 lb BMI 24.0 Handedness Right Intake Visit Reasons: New prob- Left hand CTS Intake Note: Ismael is a 58 year old right hand dominant male who presents today for left CTS, confirmed on EMG done 01/20/24. 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 He reports dropping object due to loss of sensation. He reports locking in these digit as well. Patient states pain is worse at night causing him to not be able to sleep. Tylenol, naproxen and ibuprofen offer no relief. Denies any prior injuries or surgeries to the left hand. Surgical candidate: A1C 6% 01/14/24. Residential Remodeling Subcontractor Required: Yes Residential Remodeling Subcontractor Language: Asset Card Clerk Name: [id number] Allergies No Known Allergies Allergy (Verified 02/25/24 12:48) HPI HPI New prob- Left hand CTS: Details: Ismael is a 58 year old right hand dominant Diabetic Egyptian speaking man who presents for a NCS review of his left hand numbness.. He complains of numbness in the left thumb, index, and middle fingers. Symptoms now constant, daily, worse at night. He also complains of stiffness in the fingers of his left hand. He denies having problems with numbness and tingling in the left small finger. He says he has difficulties gripping & holding things, and he drops objects occasionally. He is unsure if he is interested in surgery at this time. He denies any prior treatment options. He denies any prior injuries. He denies any numbness in his right hand. He is a Diabetic and says this is well controlled, and is a smoker. 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 He thought his appointment today was for his left clavicle fracture with Dr. Delgado. He fractures his left clavicle ~01/09/24. He has a Hx of left shoulder surgery with Dr. Delgado in 2022 [facility] Medical History History of small bowel obstruction Personal history of nicotine dependence Hyperlipidemia LDL goal <70 Sleeping difficulty Diverticulitis Controlled diabetes mellitus without complication, without long-term current use of insulin Essential hypertension Surgical History History of exploratory laparotomy (~2007) History of colectomy (~2002) History of tooth extraction (~2022) History of colostomy reversal (~2005) Family History Father CVD (cardiovascular disease) Mother CVD (cardiovascular disease) Diabetes Social History Household Members: Spouse and Children Housing: Apartment Alcohol intake: former Patient Tobacco Use Status: Former Tobacco user Tobacco use type: Cigarette Years Smoked: (onset 22yo, 1-2ppd x 30yrs, 45pyh - quit 2017) e-Cigarette/Vaping Use: Never Used Second Hand Smoke Exposure: No service: No Current occupational status: disabled Current occupational exposures/hazards: No Cognitive needs: No Hearing needs: No Vision needs: No Review of Systems Const All systems reviewed & are unremarkable except as noted in HPI and below Physical Exam Vital Signs: BMI result Body Mass Index 24.0 Const General: cooperative, healthy appearing and no acute distress Orientation/consciousness: patient oriented x3 HEENT Head: Yes normocephalic and Yes atraumatic Eyes EOM: EOMs intact bilaterally Resp Effort & Inspection: normal respiratory effort and able to speak in complete sentences Cardio Jugular venous distension: no JVD Skin General skin exam: turgor normal Rashes: no rashes Neuro General: patient oriented x3 Extrem Other: Evaluation of Left Upper Extremity: The patient is alert, oriented, and in no acute distress Neuro: Dense numbness in the median nerve distribution. Normal sensation in the ulnar nerve distribution today in clinic No thenar or intrinsic wasting Good APB muscle belly firing and good finger cross Vascular: Cap refill brisk ROM: Initially he was hesitant to move his fingers, and had some stiffness We worked on ROM exercises today in clinic Before leaving clinic he could bring his fingers closed to a fist and back into full extension Skin: No lacerations or abrasions. General: No Ecchymosis. No Erythema or evidence of infection. Nerve Conduction Study: Left-side only IMPRESSION: 1. [id number] left median neuropathy across carpal tunnel. 2. Mild left ulnar neuropathy across cubital tunnel. 3. No evidence of a proximal pathology. Macarena Graham MD 01/20/2024 Psych Appearance: grossly normal Affect: normal affect Attitude: cooperative Assessment & Plan Assessment & Plan (1) Carpal tunnel syndrome of left wrist: Code(s): G56.02 - Carpal tunnel syndrome, left upper limb Category: Medical (2) Stiffness of left hand joint: Code(s): M25.642 - Stiffness of left hand, not elsewhere classified Category: Medical (3) Cubital tunnel syndrome on left: Code(s): G56.22 - Lesion of ulnar nerve, left upper limb Category: Medical (4) Personal history of nicotine dependence: Comment: (former smoker - onset 22yo, 1-2ppd x 30yrs, 45pyh - quit 2018) Code(s): Z87.891 - Personal history of nicotine dependence Category: Medical (5) Diabetes mellitus: Code(s): E11.9 - Type 2 diabetes mellitus without complications Category: Medical (6) Clavicular fracture: Code(s): S42.009A - Fracture of unspecified part of unspecified clavicle, initial encounter for closed fracture Category: Medical Plan Assessment & Plan: 1. Left carpal tunnel syndrome, mild-moderate With dense numbness, worse at night 2. Left hand stiffness Likely secondary to disuse I educated him about this condition I discussed operative and non-operative treatment options The patient would like to proceed with surgery We worked on ROM exercises today in clinic He is to work on ROM exercises at home, 20x daily I explained the risks of his sensation not returning, but that surgery is important to maintain muscle function and preserve any sensation possible. He expressed understanding I explained that it may take up to 9 months post-operatively for any sensation to return. I explained the effects of smoking on wound healing, and recommend they stop smoking while healing. They expressed understanding The risks and benefits of operative treatment were discussed with the patient and the patient wishes to proceed with surgery. These risks include, but are not limited to risk of damage to blood vessels, nerves, tendons, infection, recurrence, incomplete relief of preoperative symptoms, persistent pain, possible need for further surgery and the risks associated with regional blocks and anesthesia. The plan is to take the patient to the operating room sometime in the next few weeks for the following procedures: 1. Left carpal tunnel release, under local All of the preoperative paperwork including the consent was reviewed today. All the patient's questions were answered. The patient understands that they will be contacted by our technical project coordinator soon to schedule this procedure. He would like surgery sometime in April. He currently has a left Clavicle fracture and is scheduled to see Dr. Delgado for this on 03/03/24. This may be the priority over his carpal tunnel release. He denies blood thinners, asthma, heart, lung, kidney issues He is a Diabetic, his most recent HgA1c was 6.0% on 01/14/24 3. Left cubital tunnel syndrome, mild Asymptomatic No complaints today Scribed for Patricia Howe MD by Atif Howard, medical equipment sales, on [ ] at [ ], EST. Coding Level of Care Code New Pt Level 4 (31283) Diagnoses Carpal tunnel syndrome of left wrist G56.02 Stiffness of left hand joint M25.642 Cubital tunnel syndrome on left G56.22 Personal history of nicotine dependence Z87.891 Diabetes mellitus E11.9 Clavicular fracture S42.009A
[2024-02-25 12:50] VITALS: BMI 24.0
== END 2024-02-25 13:18 | disposition home or self-care (01) ==
PROVIDERS: PCP Internal Medicine; Visit Provider Orthopaedic Surgery
DX: G56.02 Carpal tunnel syndrome, left upper limb (principal); M25.642 Stiffness of left hand, not elsewhere classified; G56.22 Lesion of ulnar nerve, left upper limb; Z87.891 Personal history of nicotine dependence; E11.9 Type 2 diabetes mellitus without complications; S42.009A Fracture of unspecified part of unspecified clavicle, initial encounter for closed fracture
CPT/HCPCS: 99214

== ENCOUNTER → 2024-02-25 11:57 | Outpatient (BNVA) | payer OTHER, SELFPAY | PROVIDERS: PCP Internal Medicine; Visit Provider Orthopaedic Surgery | DX: G56.02 Carpal tunnel syndrome, left upper limb (principal); M25.642 Stiffness of left hand, not elsewhere classified; G56.22 Lesion of ulnar nerve, left upper limb; S42.009A Fracture of unspecified part of unspecified clavicle, initial encounter for closed fracture; E11.9 Type 2 diabetes mellitus without complications; X58.XXXA Exposure to other specified factors, initial encounter; Y93.9 Activity, unspecified; Y92.9 Unspecified place or not applicable; Y99.9 Unspecified external cause status; Z87.891 Personal history of nicotine dependence | CPT/HCPCS: 99212 ==

== ENCOUNTER 2024-03-03 10:36 | Outpatient (AMB) | payer OTHER, SELFPAY ==
[2024-03-03 11:23] VITALS: BMI 24.0
--- NOTE | 2024-03-03 11:23 | MHC.OFFVIS ---
Vital Signs 03/03/24 11:23 Height 5 ft 6 in Weight 149 lb BMI 24.0 Intake Visit Reasons: Left shoulder pain Intake Note: Ismael is a 58 year old male who presents with complaints of intermittent left shoulder pain. The patient did undergo left shoulder arthroscopic surgery on 04/25/2023. He denies any fevers or chills. He continues with his home stretching program. He denies any weakness. Is due to undergo left carpal tunnel release surgery next month. He has tried Tylenol and anti-inflammatory medicines which gave him mild relief. Allergies No Known Allergies Allergy (Verified 03/03/24 11:25) Medication List - Last Reconciled 03/04/24 by Juan M Delgado MD atorvastatin 40 mg PO DAILY blood sugar diagnostic (FreeStyle Test strips) Use 1 test strip once a day blood-glucose meter As directed blood-glucose meter (FreeStyle Lite Meter kit) As directed dulaglutide (Trulicity) 1.5 mg (0.5 mL) subcut QWEEK 30 days hydroxyzine HCl 12.5 mg (1/2 x 25 mg) PO BEDTIME PRN lisinopril 2.5 mg PO DAILY 90 days metformin 1,000 mg PO BID 90 days naproxen 500 mg PO BID PRN omeprazole 20 mg PO DAILY 90 days tramadol 50 mg PO Q6H PRN 30 days PFSH Medical History History of small bowel obstruction Personal history of nicotine dependence Hyperlipidemia LDL goal <70 Sleeping difficulty Diverticulitis Controlled diabetes mellitus without complication, without long-term current use of insulin Essential hypertension Surgical History History of exploratory laparotomy (~2007) History of colectomy (~2002) History of tooth extraction (~2022) History of colostomy reversal (~2005) Family History Father CVD (cardiovascular disease) Mother CVD (cardiovascular disease) Diabetes Social History Household Members: Spouse and Children Housing: Apartment Alcohol intake: former Patient Tobacco Use Status: Former Tobacco user Tobacco use type: Cigarette Years Smoked: (onset 22yo, 1-2ppd x 30yrs, 45pyh - quit 2018) e-Cigarette/Vaping Use: Never Used Second Hand Smoke Exposure: No service: No Current occupational status: disabled Current occupational exposures/hazards: No Cognitive needs: No Hearing needs: No Vision needs: No Physical Exam Vital Signs: BMI result Body Mass Index 24.0 Const Other: Well-nourished well-developed very friendly male awake alert and oriented x3 in no acute distress Extrem Other: Bilateral upper extremity examination shows good capillary refill, no skin lesions noted, normal sensation light touch Left shoulder examination shows that the surgical incisions are well healed, no erythema, full range of motion when compared to his right shoulder, 5/5 strength with supraspinatus testing, mild discomfort with resisted forward flexion, no instability Office Procedures Joint Injection/Aspiration Joint Injection/Aspiration Primary Site: left shoulder Prep: site was prepped using aseptic technique Injected: 40 mg of, DepoMedrol and 1% plain lidocaine Procedure: The patient tolerated the procedure well Coding 27974 - Large joint Procedure code (CPT) selection complete Results Reviewed Results Reviewed: X-rays of the patient's left shoulder taken on 01/20/2024 no bony changes consistent with distal clavicle excision and acromioplasty, no acute bony abnormalities Assessment & Plan Assessment & Plan (1) Left shoulder pain: Code(s): M25.512 - Pain in left shoulder Category: Medical Qualifiers: Chronicity: chronic Qualified Code(s): M25.512 - Pain in left shoulder; G89.29 - Other chronic pain Plan Ismael presents with continued left shoulder pain after undergoing left shoulder arthroscopic surgery on 04/25/2023 due to rotator cuff tendinosis versus possible radiating pain from his left carpal tunnel syndrome. The risks and benefits of a left shoulder cortisone injection were discussed at length with the patient. The patient wished to proceed. He tolerated the injection well. Will continue with his home stretching program to prevent stiffness. He will contact me prior to his follow-up appointment in 3 months should any questions or concerns arise. He will follow up for his left carpal tunnel release surgery as scheduled. Feel free to call me at any time should questions regarding his orthopedic management arise. I spent 22 minutes in reviewing the patient's records and imaging studies, seeing the patient and documenting in the medical record. Orders: Orders AMB Joint Injection/Aspiration 03/03/24 G89.29 - Other chronic pain, M25.512 - Pain in left shoulder Coding Level of Care Code Est Pt Level 3 (85121) Complex EM visit Add On G2211 Diagnoses Chronic left shoulder pain M25.512; G89.29 Chronicity: chronic CPT Codes Coding - 91881 Large joint: 44586 - Large joint ([id number])
== END 2024-03-03 11:56 | disposition home or self-care (01) ==
PROVIDERS: PCP Internal Medicine; Visit Provider Orthopaedic Surgery
DX: M25.512 Pain in left shoulder (principal); G89.29 Other chronic pain
CPT/HCPCS: 20610; 99213

== ENCOUNTER → 2024-03-03 10:36 | Outpatient (BNVA) | payer OTHER, SELFPAY | PROVIDERS: PCP Internal Medicine; Visit Provider Orthopaedic Surgery | DX: M25.512 Pain in left shoulder (principal); G89.29 Other chronic pain | CPT/HCPCS: 20610; 99212; J1010; J2003 ==

== ENCOUNTER 2024-03-25 10:32 | Outpatient (AMB) | payer OTHER, SELFPAY ==
[2024-03-25 10:53] VITALS: BP 120/70; BMI 23.9
--- NOTE | 2024-03-25 10:53 | MHC.PC.OV ---
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 Bar Required: No Accompanied by: Self / Same As Patient Allergies No Known Allergies Allergy (Verified 03/25/24 11:09) Medication List - Last Reconciled 03/25/24 by Chary Francois MD atorvastatin 40 mg PO DAILY blood sugar diagnostic (FreeStyle Test strips) Use 1 test strip once a day blood-glucose meter As directed blood-glucose meter (FreeStyle Lite Meter kit) As directed dulaglutide (Trulicity) 1.5 mg (0.5 mL) subcut QWEEK 30 days hydroxyzine HCl 12.5 mg (1/2 x 25 mg) PO BEDTIME PRN lisinopril 2.5 mg PO DAILY 90 days metformin 1,000 mg PO BID 90 days naproxen 500 mg PO BID PRN omeprazole 20 mg PO DAILY 90 days tramadol 50 mg PO Q6H PRN 30 days Tobacco use date assessed: 06/26/23 Dental Screening Dental Screen Date: 03/25/24 Did you have a dental visit in the last 12 months?: No Did you have a dental problem in the last 6 months where you did not have access to dental care?: No Was dental information given to patient?: Patient has dentist HPI HPI Comments History of Present Illness Details This is a 58-year-old male with diabetes mellitus type 2, hypertension, hyperlipidemia and chronic GERD that comes today for follow-up on his conditions. Last A1c was within goal. Blood pressure stable. On statins for his cholesterol and his LDL goal should be less than 70. GERD stable with PPIs. Still complains of left arm pain and will have surgery soon. REPLACED BY [facility] Medical History History of small bowel obstruction Personal history of nicotine dependence Hyperlipidemia LDL goal <70 Sleeping difficulty Diverticulitis Controlled diabetes mellitus without complication, without long-term current use of insulin Essential hypertension Surgical History History of exploratory laparotomy (~2007) History of colectomy (~2002) History of tooth extraction (~2022) History of colostomy reversal (~2005) Family History Father CVD (cardiovascular disease) Mother CVD (cardiovascular disease) Diabetes Social History Household Members: Spouse and Children Housing: Apartment Alcohol intake: former Patient Tobacco Use Status: Former Tobacco user Tobacco use type: Cigarette Years Smoked: (onset 22yo, 1-2ppd x 30yrs, 45pyh - quit 2017) e-Cigarette/Vaping Use: Never Used Second Hand Smoke Exposure: No service: No Current occupational status: disabled Current occupational exposures/hazards: No Cognitive needs: No Hearing needs: No Vision needs: Yes Questionnaire Thrive Questionnaire Date Thrive assessed: 06/26/23 CHRIS-7 AMB Questionnaire CHRIS-7 Date CRHIS - 7 assessed: 06/26/23 Source: Developed by Drs. Koko Dupree, Charito Ruffin, Deejay Parisi and colleagues, with an educational hope from [employer]. Review of Systems Const All systems reviewed & are unremarkable except as noted in HPI and below Card Denies chest pain at rest, Denies chest pain with activity, Denies edema, Denies irregular heart rhythm, Denies claudication, Denies dyspnea, Denies dyspnea on exertion, Denies orthopnea, Denies paroxysmal nocturnal dyspnea and Denies slow heart rate Resp Denies cough, Denies dyspnea and Denies dyspnea on exertion GI Denies abdominal pain, Denies change in bowel habits, Denies excessive flatus, Denies nausea and Denies vomiting Neuro Denies behavioral changes and Denies lack of coordination Psych Denies behavioral changes Physical exam (Primary Care) Vital Signs: Last Vital Signs BP 120/70 03/25/24 10:53 BMI result Body Mass Index 23.9 Tobacco/Smoking Status: Tobacco use Status Tobacco use date assessed 06/26/23 03/25/24 10:55 Patient Tobacco Use Status Former Tobacco user 03/25/24 10:55 Tobacco use type Cigarette 03/25/24 10:55 e-Cigarette/Vaping Use Never Used 03/25/24 10:55 Thrive Assessment: Date of Thrive Assessment Date Thrive assessed 06/26/23 03/25/24 10:55 Resp Effort & Inspection: normal respiratory effort Auscultation: clear to auscultation bilaterally Cardio Jugular venous distension: no JVD Rate: regular rate Rhythm: regular rhythm Heart sounds: S1 normal heart sound present and S2 normal heart sound present Extrem General: Yes full ROM Office Procedures Flu Questionnaire Does the patient have a severe egg allergy?: No Does the patient have severe life threatening allergies?: No Does the patient have a fever or illness today?: No Has the patient ever had Guillain-Roggen Syndrome?: No Has the patient ever had any past reaction to a flu shot?: No Immunizations Fluarix Triv [id number] (PF) 45 mcg (15 mcg x 3)/0.5 mL IM syringe Performing Provider: Chary Francois MD [facility] Administered by: ESPERANZA Gonzalez on 03/25/24 11:22 Dose Route Admin Location Dispensed Lot Number Expiration Date NDC Database Coordinator 0.5 mL IM Left Deltoid 0.5 mL [id number] 11/08/24 [id number] [employer] VIS Given Date VIS Provided VIS Publication Date 03/25/24 Single Vaccine 20 Eligibility Eligibility Date Funding Source Not [facility] Eligible 03/25/24 Private Coding Level of Care Code Est Pt Level 4 (11552) Complex EM visit Add On G2211 Diagnoses Diabetes mellitus E11.9 Essential hypertension I10 Hyperlipidemia LDL goal <70 E78.5 Chronic GERD K21.9 Time Spent (min) 22 Assessment & Plan Assessment & Plan (1) Diabetes mellitus: Code(s): E11.9 - Type 2 diabetes mellitus without complications Category: Medical Plan: Continue Trulicity and metformin. A1c goal is equal or less than 7%. (2) Essential hypertension: Code(s): I10 - Essential (primary) hypertension Category: Medical Plan: Continue lisinopril. Blood pressure goal is equal or less than 130/80. (3) Hyperlipidemia LDL goal <70: Code(s): E78.5 - Hyperlipidemia, unspecified Category: Medical Plan: Continue statins. LDL goal is less than 70. (4) Chronic GERD: Code(s): K21.9 - Gastro-esophageal reflux disease without esophagitis Category: Medical Plan: Continue PPIs. Orders: Orders Microalbumin, Random (w Creat) Today R80.9 - Proteinuria, unspecified Comprehensive [place]. Panel Fast Today E11.9 - Type 2 diabetes mellitus without complications Influenza [id number] Immunization Today Z23 - Encounter for immunization Lipid Panel Today E78.5 - Hyperlipidemia, unspecified Medications: Refilled dulaglutide (Trulicity) 1.5 mg (0.5 mL) subcut QWEEK 2.5 mL 3RF 30 days E11.9 - Type 2 diabetes mellitus without complications
== END 2024-03-25 11:22 | disposition home or self-care (01) ==
PROVIDERS: PCP Internal Medicine; Visit Provider Internal Medicine
DX: E11.9 Type 2 diabetes mellitus without complications (principal); I10 Essential (primary) hypertension; E78.5 Hyperlipidemia, unspecified; K21.9 Gastro-esophageal reflux disease without esophagitis; Z23 Encounter for immunization

== ENCOUNTER → 2024-03-25 10:32 | Outpatient (BNVA) | payer OTHER, SELFPAY | PROVIDERS: PCP Internal Medicine; Visit Provider Internal Medicine | DX: Z23 Encounter for immunization (principal); E11.9 Type 2 diabetes mellitus without complications; I10 Essential (primary) hypertension; E78.5 Hyperlipidemia, unspecified; K21.9 Gastro-esophageal reflux disease without esophagitis | CPT/HCPCS: 90471; 90656; 99212 ==

== ENCOUNTER 2024-04-05 12:37 | Day surgery (SDC) | payer OTHER, SELFPAY ==
[2024-04-05 07:25] VITALS: BMI 24.0
--- NOTE | 2024-04-05 12:55 | P.OP_ITS ---
Operative Note Operative Note Date of Service: 04/05/24 Narrative: Preop diagnosis: 1. Left Carpal tunnel syndrome Postop diagnosis: same Procedure: 1. Left Carpal tunnel release Surgeon: Patricia Howe MD Public Employment Mediator: None Anesthesia: local block using 1% lidocaine with epinephrine Findings: Thickened transverse carpal ligament. EBL: Less than 5 mL Specimens: None Complications: None Disposition: Brought to recovery room in stable condition Plan: Follow-up for 10-14 days for wound check and suture removal Indications: The patient is 58 years old, with left carpal tunnel syndrome that has been unresponsive to nonoperative management. The risks and benefits of operative treatment including but not limited to risk of damage to blood vessels, nerves, tendons, infection, persistent pain, persistent symptoms, or possible need for additional surgery were discussed with the patient and the patient wishes to proceed with surgery. Procedure: Once consent was obtained a local block was performed using a combination of 1% lidocaine with epinephrine. The patient was then brought back to the operating suite and placed on the operative table in supine position. The left upper extremity was prepped and draped in a standard surgical fashion. Once assured that we had a good block, a 2.0 cm longitudinal incision was made centered over the carpal tunnel. The incision was made through the skin to the subcutaneous tissues using a #15 blade. Dissection was made down to the level of the transverse carpal ligament with care being taken to protect the palmar cutaneous nerve. Once the transverse carpal ligament was clearly visualized, a longitudinal incision was made in the transverse carpal ligament 1st using a #15 blade, then using tenotomy scissors under direct visualization. Care was taken to look for and protect the motor branch of the median nerve when seen in this area. Once satisfied with our carpal tunnel release the wound was copiously irrigated with normal saline and hemostasis was obtained with a brief period of local pressure. The skin edges were reapproximated with some 5.0 nylon suture material and a sterile dressing was applied. The patient appears to have tolerated the procedure well and with no complicatio ns. All digits were well vascularized at the conclusion of the case.
[2024-04-05 13:04] VITALS: BP 120/74; PULSE 77; RESP 18; TEMP 36.9; O2SAT 98
--- NOTE | 2024-04-05 14:24 | MHC.SHP ---
Pre-Procedural Eval Section A - 24 Hr Update-Section A only Date of Service: 04/05/24 The patient is an INPATIENT: No Changes since office visit: No Cold of Flu in the past 2 weeks, No New Medical Problems, No Changes in Medication and No Patient answered all questions The patient has been examined within 24 hours of the surgical procedure. The History & Physical has been completed within 30 days and I have reviewed it.: Yes Section B - Complete if H&P > 30 days Chief Complaint: Carpal tunnel syndrome, left upper limb Allergies: Allergies Allergy/AdvReac Type Severity Reaction Status Date / Time No Known Allergies Allergy Verified 03/25/24 11:09 Plan Diagnosis/Plan: Unchanged I have reviewed the history and physical and performed a pertinent physical examination on my patient. No changes have occurred unless specified. Time Spent With Patient Time: Total time managing care of this patient today ____ minutes.
[2024-04-05 15:33] VITALS: BP 121/71; PULSE 81; RESP 18; O2SAT 100
== END 2024-04-05 15:34 | disposition home or self-care (01) ==
PROVIDERS: PCP Internal Medicine; Visit Provider Orthopaedic Surgery
PROC: (CPT 64721; principal; 2024-04-05 14:40)
DX: G56.02 Carpal tunnel syndrome, left upper limb (principal); R20.0 Anesthesia of skin; R20.2 Paresthesia of skin; E11.9 Type 2 diabetes mellitus without complications; I10 Essential (primary) hypertension; E78.5 Hyperlipidemia, unspecified; Z87.19 Personal history of other diseases of the digestive system; Z90.49 Acquired absence of other specified parts of digestive tract; F17.210 Nicotine dependence, cigarettes, uncomplicated; Z79.84 Long term (current) use of oral hypoglycemic drugs; Z79.899 Other long term (current) drug therapy
CPT/HCPCS: 64721; J0171; J2003

== ENCOUNTER → 2024-04-05 12:37 | Outpatient (BNV) | payer OTHER, SELFPAY | PROVIDERS: PCP Internal Medicine; Visit Provider Orthopaedic Surgery | DX: G56.02 Carpal tunnel syndrome, left upper limb (principal) | CPT/HCPCS: 64721 ==

== ENCOUNTER 2024-04-20 13:43 | Outpatient (AMB) | payer OTHER, SELFPAY ==
--- NOTE | 2024-04-20 13:53 | A.OFFVIS_ITS ---
Intake Visit Reasons: PO LT CTR 04/05/24 AR Intake Note: Ismael is a 58 year old right hand dominant male who presents today post operatively s/p left carpal tunnel release DOS: 04/05/2024 w/ Dr Howe. Pt states he is overall feeling well and denies any numbness or tingling in his hand or fingers. Allergies No Known Allergies Allergy (Verified 04/20/24 13:53) HPI HPI PO LT CTR 04/05/24 AR: Details: Patient is a 58-year-old who preoperative evaluation status post left carpal tunnel release, DOS 04/05/2024. Today, the patient reports that he is feeling much better, and that his dense numbness from prior to surgery has improved significantly since his operation. The patient does report that he does have some pain at at around the incision site, but all in all he feels much improved from prior to surgery. No other acute complaints or concerns at this time. COUNT INCLUDES THE [facility] Medical History History of small bowel obstruction Personal history of nicotine dependence Hyperlipidemia LDL goal <70 Sleeping difficulty Diverticulitis Controlled diabetes mellitus without complication, without long-term current use of insulin Essential hypertension Surgical History History of exploratory laparotomy (~2007) History of colectomy (~2002) History of tooth extraction (~2022) History of colostomy reversal (~2005) Family History Father CVD (cardiovascular disease) Mother CVD (cardiovascular disease) Diabetes Social History Household Members: Spouse and Children Housing: Apartment Alcohol intake: former Patient Tobacco Use Status: Former Tobacco user Tobacco use type: Cigarette Years Smoked: (onset 22yo, 1-2ppd x 30yrs, 45pyh - quit 2018) e-Cigarette/Vaping Use: Never Used Second Hand Smoke Exposure: No service: No Current occupational status: disabled Current occupational exposures/hazards: No Cognitive needs: No Hearing needs: No Vision needs: Yes Review of Systems Const All systems reviewed & are unremarkable except as noted in HPI and below Physical Exam Extrem Other: Patient is alert, oriented, and in no acute distress. Neuro: Normal sensation of the tips of all digits of the left hand at this time Vascular: Cap refill brisk Pain: Patient reports some tenderness to palpation about the incision site hand radial and ulnar to the incision site on the volar left wrist ROM: Patient is able to make a closed fist and extend all digits of the left hand fully Skin: No lacerations or abrasions. General: No ecchymosis, erythema, or evidence of infection. Psych: Appears grossly normal Affect normal Attitude cooperative Assessment & Plan Assessment & Plan (1) Carpal tunnel syndrome of left wrist: Code(s): G56.02 - Carpal tunnel syndrome, left upper limb Category: Medical Plan 1. Left carpal tunnel syndrome status post carpal tunnel release DOS 04/05/2024 Patient appears to be recovering well postoperatively Patient is educated about the typical recovery course At this time, patient will be referred to occupational therapy for desensitization of the incision site as well as treatment of pillar pain ] Patient is educated that he of the 2 lb weight restriction in his hand for further 2 weeks Patient was amenable to this plan Patient will follow-up as needed with any acute concerns Coding Level of Care Code Global (53035) Diagnoses Carpal tunnel syndrome of left wrist G56.02
== END 2024-04-20 14:09 | disposition home or self-care (01) ==
PROVIDERS: PCP Internal Medicine
DX: G56.02 Carpal tunnel syndrome, left upper limb (principal)
CPT/HCPCS: 99024

== ENCOUNTER → 2024-04-20 13:43 | Outpatient (BNVA) | payer OTHER, SELFPAY | PROVIDERS: PCP Internal Medicine | DX: Z47.89 Encounter for other orthopedic aftercare (principal); Z98.890 Other specified postprocedural states | CPT/HCPCS: 99212 ==

== ENCOUNTER 2024-06-15 10:36 | Outpatient (AMB) | payer OTHER, SELFPAY ==
--- NOTE | 2024-06-15 10:44 | A.OFFPC_ITS ---
Vital Signs 06/15/24 10:45 Height 5 ft 6 in Weight 152 lb BMI 24.5 BP 122/70 Blood Pressure Location Lt brachial Position Sitting Intake Visit Reasons: follow up Intake Note: Patient here for a follow up Staff Interpreter Required: Yes Staff Interpreter Language: Body Fitter Name: Chary Francois MD Information Interpreted: non-clinical & clinical Accompanied by: Self / Same As Patient Allergies No Known Allergies Allergy (Verified 06/15/24 10:56) Medication List - Last Reconciled 06/15/24 by Chary Francois MD atorvastatin 40 mg PO DAILY blood sugar diagnostic (FreeStyle Test strips) Use 1 test strip once a day blood-glucose meter As directed blood-glucose meter (FreeStyle Lite Meter kit) As directed dulaglutide (Trulicity) 0.75 mg (0.5 mL) subcut QWEEK 90 days hydroxyzine HCl 12.5 mg (1/2 x 25 mg) PO BEDTIME PRN lisinopril 2.5 mg PO DAILY 90 days metformin 1,000 mg PO BID 90 days naproxen 500 mg PO BID PRN omeprazole 20 mg PO DAILY 90 days tramadol 50 mg PO Q6H PRN 30 days Tobacco use date assessed: 06/15/24 Dental Screening Dental Screen Date: 06/15/24 Did you have a dental visit in the last 12 months?: No Did you have a dental problem in the last 6 months where you did not have access to dental care?: No Was dental information given to patient?: Patient has dentist HPI HPI Comments History of Present Illness Details The patient is a 58-year-old male presenting with erectile dysfunction and possible testosterone deficiency. The patient reports difficulty maintaining an erection, which impacts his ability to engage in sexual intercourse with his partner. This issue has been ongoing and affects his quality of life. He expresses a desire for treatments that may enhance intellectual arousal. The patient has a well-controlled diabetes history, with A1c levels at 6%. He has previously taken medications that may contribute to his erectile dysfunction, such as tramadol, which can decrease testosterone levels. The patient denies substance abuse, and while he formerly smoked two cigarettes daily, he has since quit. He has also been cautious with his alcohol intake. The patient has experienced COVID-19 exposure through family members within the past week, though recent home testing yielded a negative result. [facility] Medical History (Updated 06/15/24 @ 12:35 by Chary Francois MD) Diabetes mellitus Type 2 diabetes mellitus with hyperglycemia, without long-term current use of insulin History of small bowel obstruction Personal history of nicotine dependence Hyperlipidemia LDL goal <70 Sleeping difficulty Diverticulitis Controlled diabetes mellitus without complication, without long-term current use of insulin Essential hypertension Surgical History History of carpal tunnel surgery History of exploratory laparotomy (~2007) History of colectomy (~2002) History of tooth extraction (~2022) History of colostomy reversal (~2005) Family History Father CVD (cardiovascular disease) Mother CVD (cardiovascular disease) Diabetes Social History Household Members: Spouse and Children Housing: Apartment Alcohol intake: former Patient Tobacco Use Status: Former Tobacco user Tobacco use type: Cigarette Years Smoked: (onset 22yo, 1-2ppd x 30yrs, 45pyh - quit 2017) e-Cigarette/Vaping Use: Never Used Second Hand Smoke Exposure: No service: No Current occupational status: disabled Current occupational exposures/hazards: No Cognitive needs: No Hearing needs: No Vision needs: Yes Questionnaire PHQ-9 Over the last 2 weeks, how often have you been bothered by any of the following problems? 1. Little interest or pleasure in doing things: not at all 2. Feeling down, depressed, or hopeless: not at all 3. Trouble falling or staying asleep, or sleeping too much: not at all 4. Feeling tired or having little energy: not at all 5. Poor appetite or overeating: not at all 6. Feeling bad about yourself - or that you are a failure or have let yourself or your family down: not at all 7. Trouble concentrating on things, such as reading the newspaper or watching television: not at all 8. Moving or speaking so slowly that other people could have noticed. Or the opposite - being so fidgety or restless that you have been moving around a lot more than usual: not at all 9. Thoughts that you would be better off or of hurting yourself in some way: not at all Total score: 0 Depression Screening Interpretation: Negative Depression Screening Done: Yes 09496 - PHQ-9 Billing: Yes Source: Developed by Drs. Koko Dupree, Charito Ruffin, Deejay Parisi and colleagues, with an educational hope from [employer]. Thrive Questionnaire Date Thrive assessed: 06/15/24 I am a: Patient What is your living situation today?: I have a steady place to live Within the past 12 months, did the food you bought not last and you didn't have the money to get more?: Never true Within the past 12 months, did you worry whether your food would run out before you got money to buy more?: Never true Do you have trouble paying for medicines?: No Do you have trouble getting transportation to medical appointments?: No Do you have trouble paying your heating and electricity bill?: No Do you have trouble taking care of your child, family member or friend?: No Do you have trouble with day-to-day activities such as bathing, preparing meals, shopping, managing finances, etc.?: No Are you currently unemployed and looking for a job?: No Are you interested in more education?: No Please select the resources that you would like help with: None Currently or been in a relationship where the following occur: No concerns reported THRIVE Score: 0 AUDIT C Alcohol Use Questionnaire (AUDIT-C) 1. How often do you have a drink containing alcohol?: Never Total Score: 0 Score Reviewed/Action Taken: No CHRIS-7 AMB Questionnaire CHRIS-7 Date CHRIS - 7 assessed: 06/15/24 Feeling nervous, anxious, or on edge: 0 = Not at all Not being able to stop or control worryin = Not at all Worrying too much about different things: 0 = Not at all Trouble relaxin = Not at all Being so restless that it is hard to sit still: 0 = Not at all Becoming easily annoyed or irritable: 0 = Not at all Feeling afraid as if something awful might happen: 0 = Not at all Total CHRIS-7 score (0-4 normal; 5-9 mild; 10-14 moderate; 15-21 severe): 0 Source: Developed by Charito Nath Kurt Kroenke and colleagues, with an educational hope from [employer]. CHRIS-7 Assessment Billing CHRIS-7 Assessment Tool: CHRIS-7 Assessment 73127 Review of Systems Const All systems reviewed & are unremarkable except as noted in HPI and below Card Denies chest pain at rest, Denies chest pain with activity, Denies edema, Denies irregular heart rhythm, Denies claudication, Denies dyspnea, Denies dyspnea on exertion, Denies orthopnea, Denies paroxysmal nocturnal dyspnea and Denies slow heart rate Resp Denies cough, Denies dyspnea and Denies dyspnea on exertion GI Denies abdominal pain, Denies change in bowel habits, Denies excessive flatus, Denies nausea and Denies vomiting Physical exam (Primary Care) Vital Signs: Last Vital Signs BP 122/70 06/15/24 10:45 BMI result Body Mass Index 24.5 Tobacco/Smoking Status: Tobacco use Status Tobacco use date assessed 06/15/24 06/15/24 10:51 Patient Tobacco Use Status Former Tobacco user 06/15/24 10:51 Tobacco use type Cigarette 06/15/24 10:51 e-Cigarette/Vaping Use Never Used 06/15/24 10:51 PHQ-9: PHQ-9 Score PHQ-9: Total score 0 06/15/24 10:58 Depression Screening Interpretation: Negative Thrive Assessment: Date of Thrive Assessment Date Thrive assessed 06/15/24 06/15/24 10:51 Currently or been in a relationship where the following occur: No concerns reported Resp Effort & Inspection: normal respiratory effort Auscultation: clear to auscultation bilaterally Cardio Jugular venous distension: no JVD Rate: regular rate Rhythm: regular rhythm Heart sounds: S1 normal heart sound present and S2 normal heart sound present Extrem General: Yes full ROM Results AMB Hemoglobin A1c AMB Hemoglobin A1c 6.0 % Last Edit by ESPERANZA Gonzalez on 06/15/24 11:0 1 Results Reviewed Results Reviewed: Laboratory Last Values Hgb A1c (Clinic) 6.0 % (4.0-6.0) 06/15/24 10:55 Coding Level of Care Code Est Pt Level 4 (63728) Complex EM visit Add On G2211 Diagnoses Erectile dysfunction N52.9 Controlled type 2 diabetes mellitus without complication, without long-term current use of insulin E11.9 Diabetes mellitus type: type 2 Essential hypertension I10 Hyperlipidemia LDL goal <70 E78.5 Additional Codes CHRIS-7 Assessment Billing - CHRIS-7 Assessment Tool: CHRIS-7 Assessment 16777 ([id number]) PHQ-9 - 70117 - PHQ-9 Billing: Yes ([id number]) Time Spent (min) 23 Assessment & Plan Assessment & Plan (1) Erectile dysfunction: Code(s): N52.9 - Male erectile dysfunction, unspecified Category: Medical (2) Controlled diabetes mellitus without complication, without long-term current use of insulin: Code(s): E11.9 - Type 2 diabetes mellitus without complications Category: Medical Qualifiers: Diabetes mellitus type: type 2 Qualified Code(s): E11.9 - Type 2 diabetes mellitus without complications (3) Essential hypertension: Code(s): I10 - Essential (primary) hypertension Category: Medical (4) Hyperlipidemia LDL goal <70: Code(s): E78.5 - Hyperlipidemia, unspecified Category: Medical Plan - The patient will undergo laboratory testing for serum testosterone levels to evaluate for potential testosterone deficiency. - Prescribed an erectile dysfunction medication and advised on potential side effects and interactions. - Advised to reduce tramadol usage due to its potential effect on testosterone levels. - Patient recommended to follow up with urology for further management based on testosterone results. Patient was informed and verbally consented to the use of an ambient scribe for clinic note documentation during this visit. During our discussion, I explained the possible influence of tramadol and other medications on erectile dysfunction and testosterone levels. I advised the patient that reduced tramadol usage could help with testosterone levels and, in turn, erectile function. I also discussed the next steps involving serum testosterone testing and outlined how results might guide the management plan, potentially involving hormonal therapy. The potential side effects of erectile dysfunction medication, such as hypotension and facial flushing, were explained to the patient, emphasizing the importance of avoiding any interactions with nitrates. The patient agreed to proceed with the current plan and understands when to contact medical services should he experience any side effects, especially chest pain. Orders: Orders AMB Hemoglobin A1c Today E11.9 - Type 2 diabetes mellitus without complications Lipid Panel Today E78.5 - Hyperlipidemia, unspecified Comprehensive Williamson. Panel Fast Today E11.9 - Type 2 diabetes mellitus without complications SARS-CoV2/FLU/RSV Today R09.89 - Other specified symptoms and signs involving the circulatory and respiratory systems Testosterone, Free/Total Today N52.9 - Male erectile dysfunction, unspecified Microalbumin, Random (w Creat) Today R80.9 - Proteinuria, unspecified Vitamin D 25-OH Total Today E55.9 - Vitamin D deficiency, unspecified PSA,Total (Free>4and<10) Today R35.1 - Nocturia Referrals Urology Referral N52.9 - Male erectile dysfunction, unspecified Medications: New tadalafil (Cialis) administer approximately 30min before sexual activity; do not use more than 1 dose per 24hrs 20 mg PO DAILY 30 days PRN 3 tabs 0RF sexual activity Patient Instructions: - Follow up with testosterone blood testing on an empty stomach. - Reduce tramadol use and monitor any improvement in symptoms. - Start prescribed erectile dysfunction medication as directed, and be vigilant of any side effects such as flushing or dizziness. - Seek immediate medical attention if you experience chest pain. - Follow up with urology to review lab results and discuss further treatment opt ions.
[2024-06-15 10:45] VITALS: BP 122/70; BMI 24.5
--- OUTSIDE RECORDS SUMMARY | 2024-06-15 11:32 | XMS_ITS | Encounter Summary ---
Author Organization [facility] [facility] Address [address] [place] [address] Care Team Providers Care Suction Plate Roller Hand Name Role Phone Unavailable Primary Care Provider Unavailabl e Encounter Details Date Type Department Care Team (Latest Contact Info) Description 03/31/2020 Abstract [facility] CONVERSIONS Dental, Provider, DDS Social History Tobacco Use Types Packs/Day Years Used Date Smoking Tobacco: Never Assessed Sex and Gender Information Value Date Recorded Sex Assigned at Male 03/11/2022 10:19 AM EDT Legal Sex Male 10:19 AM EDT Gender Identity Male 03/11/2022 10:19 AM EDT Sexual Orientation Choose not to disclose 2021 10:19 AM EDT documented as of this encounter Plan of Treatment Not on file documented as of this encounter Visit Diagnoses Not on filedocumented in this encounter
--- OUTSIDE RECORDS SUMMARY | 2024-06-15 11:32 | XMS_ITS | Clinical Summary ---
Author Organization [employer] Address [address] [place] [address] Care Team Providers Care Drip Box Tender Name Role Phone Unavailable Primary Care Provider Unavailabl e Allergies No known active allergies Medications ibuprofen 800 MG tablet Take 800 mg by mouth every 6 (six) hours if needed for mild pain. Active metFORMIN (Glucophage) 1000 MG tablet 10/06/2022 Acti ve traMADol (Ultram) 50 MG tablet Take 50 mg by mouth every 6 (six) hours if needed. 09/19/2022 Active Social History Tobacco Use Types Packs/Day Years Used Date Smoking Tobacco: Former Cigarettes Passive Smoke Exposure: Past Smokeless Tobacco: Never Sex and Gender Information Value Date Recorded Sex Assigned at Male 03/11/2022 10:19 AM EDT Legal Sex Male 10:19 AM EDT Gender Identity Male 03/11/2022 10:19 AM EDT Sexual Orientation Choose not to disclose 2021 10:19 AM EDT Last Filed Vital Signs Vital Sign Reading Time Taken Comments Blood Pressure 112/58 10/15/2022 8:11 AM EDT Pulse 80 10/08/2022 9:22 AM EDT Temperature - - Respiratory Rate - - Oxygen Saturation - - Inhaled Oxygen Concentration - - Weight - - Height - - Body Mass Index - - Plan of Treatment Health Maintenance Due Date Last Done Comments CT Colonography 1965 Colonoscopy 1965 Colorectal Cancer Screening 1965 Dental Prophylaxis 1965 Depression Screening 1965 FIT DNA/Cologuard 1965 FIT 1965 FOBT 1965 HIV Screening 1965 Lipid Panel 1965 SDOH Screening 1965 Sigmoidoscopy 1965 Alcohol/Substance Use Screening 1977 Hepatitis C Screening 11/09/1983 Pneumococcal Vaccine: 50+ Years (2 of 2 - PCV) 02/05/2019 02/05/2018 Dental X-Ray: Full Mouth 03/18/2020 03/17/2017 Dental Oral Exam 09/29/2020 03/31/2020, , 03/17/2017, Additional history exists Dental X-Ray: Bitewings 10/10/2023 10/09/19 23, 03/31/2020, 03/02/2018, Additional history exists Tobacco Screening 10/16/2023 10/15/2022 COVID-19 Vaccine ( season) 2024 12/18/2021, 05/01/2021, 09/25/2020, Additional history exists Influenza Vaccine (#1) 2024 , 01/30/2021, 03/04/2019, Additional history exists DTaP/Tdap/Td Vaccines (3 - Td or Tdap) 07/13/2032 07/13/2022, 03/31/2013, 09/11/2006 RSV Patients and Patients Aged 60 years or older (1 - 1-dose 75+ series) 2040 Hepatitis A Vaccines Aged Out 02/04/2008, 09/02/19 08 No longer eligible based on patient's age to complete this topic Hepatitis B Vaccines Completed 02/04/2008, 10/15/2007, 09/02/2007 Pneumococcal Vaccine: Pediatrics (0 to 5 Years) and At-Risk Patients (6 to 49) Years) Aged Out 02/05/2018 No longer eligible based on patient's age to complete this topic Zoster Vaccines Completed 05/19/2022, 09/14/2021 HIB Vaccines Aged Out No longer eligi ble based on patient's age to complete this topic HPV Vaccines Aged Out No longer eligi ble based on patient's age to complete this topic IPV Vaccines Aged Out No longer eligi ble based on patient's age to complete this topic Meningococcal Vaccine Aged Out No kennedy perry eligible based on patient's age to complete this topic RSV under 20 months Aged Out No longe r eligible based on patient's age to complete this topic Rotavirus Vaccines Aged Out No longer eligible based on patient's age to complete this topic Procedures Procedure Name Priority Date/Time Associated Diagnosis Comments BITEWING - SINGLE RADIOGRAPHIC IMAGE Routine 10/08/2022 9:30 AM EDT Necrosis of dental pulp PERIODIC ORAL EVALUATION - ESTABLISHED PATIENT Routine 03/31/2020 12:00 AM EST DIAGNOSTIC - DIAGNOSTIC IMAGING - INTRAORAL - COMPREHENSIVE SERIES OF RADIOGRAPHIC IMAGES Routine 03/17/2017 12:00 AM EST from Last 3 Months or Most Recently Relevant to Health Maintenance Insurance [facility]
== END 2024-06-15 11:14 | disposition home or self-care (01) ==
PROVIDERS: PCP Internal Medicine; Visit Provider Internal Medicine
DX: N52.9 Male erectile dysfunction, unspecified (principal); E11.9 Type 2 diabetes mellitus without complications; I10 Essential (primary) hypertension; E78.5 Hyperlipidemia, unspecified

== ENCOUNTER → 2024-06-15 10:36 | Outpatient (BNVA) | payer OTHER, SELFPAY | PROVIDERS: PCP Internal Medicine; Visit Provider Internal Medicine | DX: N52.9 Male erectile dysfunction, unspecified (principal); E11.9 Type 2 diabetes mellitus without complications; E78.5 Hyperlipidemia, unspecified; I10 Essential (primary) hypertension | CPT/HCPCS: 83036; 96127; 99212 ==

== ENCOUNTER 2024-06-23 11:01 | Outpatient (AMB) | payer OTHER, SELFPAY ==
--- NOTE | 2024-06-23 11:02 | MHC.OFFVIS ---
Vital Signs 06/23/24 11:11 Height 5 ft 6 in Weight 152 lb BMI 24.5 Intake Visit Reasons: Left shoulder discomfort Intake Note: Ismael is a 58 year old male who presents with complaints of intermittent discomfort in his left shoulder after undergoing left shoulder arthroscopic surgery on 04/25/2023. The patient underwent left wrist carpal tunnel release surgery on 04/05/[address] Howe. He reports minimal discomfort in his left wrist. He denies any numbness or tingling in his left hand. He states that his left shoulder discomfort has improved significantly since his carpal tunnel release surgery. He denies any weakness. 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 Allergies No Known Allergies Allergy (Verified 06/23/24 11:11) Medication List - Last Reconciled 06/23/24 by Juan M Delgado MD atorvastatin 40 mg PO DAILY blood sugar diagnostic (FreeStyle Test strips) Use 1 test strip once a day blood-glucose meter As directed blood-glucose meter (FreeStyle Lite Meter kit) As directed dulaglutide (Trulicity) 0.75 mg (0.5 mL) subcut QWEEK 90 days hydroxyzine HCl 12.5 mg (1/2 x 25 mg) PO BEDTIME PRN lisinopril 2.5 mg PO DAILY 90 days metformin 1,000 mg PO BID 90 days naproxen 500 mg PO BID PRN omeprazole 20 mg PO DAILY 90 days tadalafil (Cialis) 20 mg PO DAILY PRN 30 days tramadol 50 mg PO Q6H PRN 30 days PFSH Medical History (Updated 06/15/24 @ 12:35 by Chary Francois MD) Diabetes mellitus Type 2 diabetes mellitus with hyperglycemia, without long-term current use of insulin History of small bowel obstruction Personal history of nicotine dependence Hyperlipidemia LDL goal <70 Sleeping difficulty Diverticulitis Controlled diabetes mellitus without complication, without long-term current use of insulin Essential hypertension Surgical History History of carpal tunnel surgery History of exploratory laparotomy (~2007) History of colectomy (~2002) History of tooth extraction (~2022) History of colostomy reversal (~2005) Family History Father CVD (cardiovascular disease) Mother CVD (cardiovascular disease) Diabetes Social History Household Members: Spouse and Children Housing: Apartment Alcohol intake: former Patient Tobacco Use Status: Former Tobacco user Tobacco use type: Cigarette Years Smoked: (onset 22yo, 1-2ppd x 30yrs, 45pyh - quit 2017) e-Cigarette/Vaping Use: Never Used Second Hand Smoke Exposure: No service: No Current occupational status: disabled Current occupational exposures/hazards: No Cognitive needs: No Hearing needs: No Vision needs: Yes Physical Exam Vital Signs: BMI result Body Mass Index 24.5 Const Other: Well-nourished well-developed very friendly male awake alert and oriented x3 in no acute distress Extrem Other: Left shoulder examination shows that the surgical incisions are well healed, no erythema, full range of motion when compared to his right shoulder, 5/5 strength with supraspinatus testing, no instability Assessment & Plan Assessment & Plan (1) Left shoulder pain: Code(s): M25.512 - Pain in left shoulder Category: Medical Qualifiers: Chronicity: chronic Qualified Code(s): M25.512 - Pain in left shoulder; G89.29 - Other chronic pain Plan Ismael continues to do well after undergoing left shoulder arthroscopic surgery on 04/25/2023. Does have intermittent discomfort most likely due to rotator cuff tendinosis. At this point the patient's symptoms are tolerable to him. Will continue with his home stretching program. We will hold off on a cortisone injection for now. He will follow up with me on an as-needed basis should his symptoms worsen in any way. Feel free to call me at any time should questions regarding his orthopedic management arise. I spent 21 minutes in reviewing the patient's records and imaging studies, seeing the patient and documenting in the medical record. Coding Level of Care Code Est Pt Level 3 (71377) Complex EM visit Add On G2211 Diagnoses Chronic left shoulder pain M25.512; G89.29 Chronicity: chronic
[2024-06-23 11:11] VITALS: BMI 24.5
--- OUTSIDE RECORDS SUMMARY | 2024-06-23 12:53 | XMS_ITS | Clinical Summary ---
Author Organization [employer] Address [address] [place] [address] Care Team Providers Care Lawyer Criminal Name Role Phone Unavailable Primary Care Provider [...] Most Recently Relevant to Health Maintenance Insurance [facility]
--- OUTSIDE RECORDS SUMMARY | 2024-06-23 12:53 | XMS_ITS | Encounter Summary ---
Author Organization [employer] Address [address] [place] [address] Care Team Providers Care Upstairs Maid Name Role Phone Unavailable Primary Care Provider Unavailabl e Encounter Details Date Type Department Care Team (Latest Contact Info) Description 03/31/2020 Abstract [facility] CONVERSIONS Dental, Provider, DDS Social History Tobacco [...]
== END 2024-06-23 11:27 | disposition home or self-care (01) ==
PROVIDERS: PCP Internal Medicine; Visit Provider Orthopaedic Surgery
DX: M25.512 Pain in left shoulder (principal); G89.29 Other chronic pain
CPT/HCPCS: 99213

== ENCOUNTER → 2024-06-23 11:01 | Outpatient (BNVA) | payer OTHER, SELFPAY | PROVIDERS: PCP Internal Medicine; Visit Provider Orthopaedic Surgery | DX: M25.521 Pain in right elbow (principal); G89.29 Other chronic pain | CPT/HCPCS: 99212 ==

== ENCOUNTER 2024-07-05 08:34 | Outpatient (REF) | payer OTHER, SELFPAY ==
--- OUTSIDE RECORDS SUMMARY | 2024-07-05 08:59 | XMS_ITS | Encounter Summary ---
Author Organization [employer] Address [address] [place] [address] Care Team Providers Care Athletic Coordinator Name Role Phone Unavailable Primary Care Provider Unavailabl e Encounter Details Date Type Department Care Team (Latest Contact Info) Description 03/31/2020 Abstract [facility] CONVERSIONS Dental, Provider, DDS Social History [...]
--- OUTSIDE RECORDS SUMMARY | 2024-07-05 08:59 | XMS_ITS | Clinical Summary ---
Author Organization [employer] Address [address] [place] [address] Care Team Providers Care Ruby On Rails Software Developer Name Role Phone Unavailable Primary Care Provider [...] ESTABLISHED PATIENT Routine 03/31/2020 12:00 AM EST INTRAORAL - COMPLETE SERIES OF RADIOGRAPHIC IMAGES Routine 03/17/2017 12:00 AM EST from Last 3 Months or Most Recently Relevant to Health Maintenance Insurance [facility]
[2024-07-05 09:31] LABS: Influenza A PCR NEGATIVE (Negative); Influenza B PCR NEGATIVE (Negative); Resp Syncy Virus RNA Qual PCR NEGATIVE (Negative); SARS COV2 PCR INHOUSE NEGATIVE (Negative)
[2024-07-05 09:35] LABS: Appearance Urine Clear; Color Urine Yellow; Glucose Urine UA Negative (Negative); Leukocyte Esterase Urine Trace (Negative); Nitrite Urine Negative (Negative); PH 7.5 (5.0-9.0); Specific Gravity - Urine 1.015 (1.005-1.025); UMIC TRIGGER UACC YES; Urine Blood Negative (Negative); Urine Ketones Negative (Negative); Urine Protein Negative (Neg-Trace)
[2024-07-05 09:40] LABS: Bacteria Urine None Seen (None Seen); Hyaline Casts Urine 0-2 /LPF (0-2); RBC Urine 0-2 /HPF (0-2); Squamous Epithelial Cell Urine 0-2 /HPF (0-2); UACC Culture Trigger YES
[2024-07-05 09:59] LABS: Alanine Aminotransferase 40 U/L (0-40); Albumin Level 4.3 g/dL (3.5-5.0); Alkaline Phosphatase 65 U/L (39-117); Anion Gap 14 (12-20); Aspartate Amino Transferase 31 U/L (5-37); Bilirubin Total 0.5 mg/dL (0.0-1.0); Blood Urea Nitrogen 6 mg/dL (9-16); Carbon Dioxide 25 mmol/L (22-29); Chloride 105 mmol/L (96-108); Cholesterol 99 mg/dL (<200); Estimated Glomerular Filt Rate > 60; Glucose Fasting 92 mg/dL (60-99); HDL Cholesterol 39 mg/dL (>40); LDL Cholesterol Calculated 47 mg/dL (<100); Potassium 4.4 mmol/L (3.3-5.1); Sodium 140 mmol/L (135-145); Total Protein 7.5 g/dL (6.5-8.0); Triglycerides 67 mg/dL (<150)
[2024-07-05 10:05] LABS: Creatinine Urine 93.87 mg/dL; Microalbum/Creatinine Ratio Ur 25.5 ug/mg cr (<30)
[2024-07-05 10:15] LABS: Vitamin D 25-OH Total 17.1 ng/mL (>30)
[2024-07-05 10:23] LABS: PSA,Total (Free>4and<10) 0.95 ng/mL (0.00-4.00)
[2024-07-11 15:39] LABS: Testosterone, Free 40.9 pg/mL (35.0-155.0); Testosterone, Total 284 ng/dL (250-1100)
== END 2024-07-05 08:35 | disposition home or self-care (01) ==
LOC: HO.LAB 08:34
PROVIDERS: PCP Internal Medicine; Visit Provider Internal Medicine
DX: E55.9 Vitamin D deficiency, unspecified (principal); E11.9 Type 2 diabetes mellitus without complications; R09.89 Other specified symptoms and signs involving the circulatory and respiratory systems; N52.9 Male erectile dysfunction, unspecified; E78.5 Hyperlipidemia, unspecified; R35.1 Nocturia; Z12.5 Encounter for screening for malignant neoplasm of prostate
CPT/HCPCS: 0241U; 80053; 80061; 81001; 82043; 82306; 82570; 84153; 84402; 84403; 87086

== ENCOUNTER 2024-07-08 09:57 | Outpatient (AMB) | payer OTHER, SELFPAY ==
[2024-07-08 10:03] VITALS: BP 116/66; PULSE 78; TEMP 36.4; O2SAT 98; BMI 23.8
--- NOTE | 2024-07-08 10:03 | MHC.PC.OV ---
Vital Signs 07/08/24 10:03 Height 5 ft 6 in Weight 147 lb 6 oz BMI 23.8 BP 116/66 Blood Pressure Location Lt brachial Position Sitting Pulse 78 Pulse Source Pulse Oximeter Temp 97.5 F Temp Source Temporal Artery Scan Pulse Oximetry (%) 98 Oxygen Delivery Method Room Air Intake Visit Reasons: Annual exam Intake Note: Patient is here today for a physical. Reel Slitter Required: Yes Reel Slitter Language: Parts Sales Advisor Name: Chary Francois MD Information Interpreted: non-clinical & clinical Accompanied by: Self / Same As Patient Allergies No Known Allergies Allergy (Verified 07/08/24 10:32) Medication List - Last Reconciled 07/08/24 by Chary Francois MD atorvastatin 40 mg PO DAILY blood sugar diagnostic (FreeStyle Test strips) Use 1 test strip once a day blood-glucose meter As directed blood-glucose meter (FreeStyle Lite Meter kit) As directed dulaglutide (Trulicity) 0.75 mg (0.5 mL) subcut QWEEK 90 days hydroxyzine HCl 12.5 mg (1/2 x 25 mg) PO BEDTIME PRN lisinopril 2.5 mg PO DAILY 90 days metformin 1,000 mg PO BID 90 days naproxen 500 mg PO BID PRN omeprazole 20 mg PO DAILY 90 days tadalafil (Cialis) 20 mg PO DAILY PRN 30 days tramadol 50 mg PO Q6H PRN 30 days Tobacco use date assessed: 06/15/24 Dental Screening Dental Screen Date: 06/15/24 HPI HPI Comments History of Present Illness Details The patient is a 58-year-old male presenting for an annual physical examination and follow-up on chronic conditions, particularly type 2 diabetes mellitus, hyperlipidemia, and essential hypertension. His diabetes management shows effective control, evidenced by an A1c of 6. Current medications include Trulicity 0.75mg, with a need for a refill, and atorvastatin 40mg for hyperlipidemia, which shows LDL at an optimal level. His blood pressure is stable under lisinopril at 2.5 mg daily. The patient is vitamin D deficient and experiences associated symptoms such as fatigue and bone pain. Vitamin D supplementation has been recommended. Surgical history includes several procedures, notably carpal tunnel release and colostomy reversal, with complications preventing a traditional colonoscopy. However, a 2021 Cologuard was negative, requiring follow-up by January 2023. Family history notes maternal heart disease and paternal mortality due to cardiac issues. The patient has stopped alcohol and tobacco use. There are no reported symptoms of depression or anxiety, but there are challenges with the provision of ophthalmology services, owing to appointment and provision issues. - Current on tetanus vaccination; last dose less than 10 years ago. - Negative Cologuard test in 2021; repeat advised for January 2025. - Vitamin D supplementation recommended due to deficiency. [facility] Medical History Diabetes mellitus Type 2 diabetes mellitus with hyperglycemia, without long-term current use of insulin History of small bowel obstruction Personal history of nicotine dependence Hyperlipidemia LDL goal <70 Sleeping difficulty Diverticulitis Controlled diabetes mellitus without complication, without long-term current use of insulin Essential hypertension Surgical History History of carpal tunnel surgery History of exploratory laparotomy (~2007) History of colectomy (~2002) History of tooth extraction (~2022) History of colostomy reversal (~2005) Family History Father CVD (cardiovascular disease) Mother CVD (cardiovascular disease) Diabetes Social History Household Members: Spouse and Children Housing: Apartment Alcohol intake: former Patient Tobacco Use Status: Former Tobacco user Tobacco use type: Cigarette Years Smoked: (onset 22yo, 1-2ppd x 30yrs, 45pyh - quit 2017) e-Cigarette/Vaping Use: Never Used Second Hand Smoke Exposure: No service: No Current occupational status: disabled Current occupational exposures/hazards: No Cognitive needs: No Hearing needs: No Vision needs: Yes Questionnaire PHQ-9 Over the last 2 weeks, how often have you been bothered by any of the following problems? 1. Little interest or pleasure in doing things: not at all 2. Feeling down, depressed, or hopeless: not at all 3. Trouble falling or staying asleep, or sleeping too much: not at all 4. Feeling tired or having little energy: not at all 5. Poor appetite or overeating: not at all 6. Feeling bad about yourself - or that you are a failure or have let yourself or your family down: not at all 7. Trouble concentrating on things, such as reading the newspaper or watching television: not at all 8. Moving or speaking so slowly that other people could have noticed. Or the opposite - being so fidgety or restless that you have been moving around a lot more than usual: not at all 9. Thoughts that you would be better off or of hurting yourself in some way: not at all Total score: 0 Depression Screening Interpretation: Negative Depression Screening Done: Yes 21536 - PHQ-9 Billing: Yes Source: Developed by Drs. Koko Dupree, Charito Ruffin, Deejay Parisi and colleagues, with an educational hope from [employer]. Thrive Questionnaire Date Thrive assessed: 07/08/24 I am a: Patient What is your living situation today?: I choose not to answer this question Within the past 12 months, did the food you bought not last and you didn't have the money to get more?: I choose not to answer this question Within the past 12 months, did you worry whether your food would run out before you got money to buy more?: I choose not to answer this question Do you have trouble paying for medicines?: No Do you have trouble getting transportation to medical appointments?: No Do you have trouble paying your heating and electricity bill?: No Do you have trouble taking care of your child, family member or friend?: No Do you have trouble with day-to-day activities such as bathing, preparing meals, shopping, managing finances, etc.?: No Are you currently unemployed and looking for a job?: I choose not to answer this question Are you interested in more education?: I choose not to answer this question Please select the resources that you would like help with: Utilities and None Currently or been in a relationship where the following occur: I choose not to answer THRIVE Score: 0 AUDIT C Alcohol Use Questionnaire (AUDIT-C) 1. How often do you have a drink containing alcohol?: Never 3. How often do you have six or more drinks on one occasion?: Never Total Score: 0 Score Reviewed/Action Taken: No CHRIS-7 AMB Questionnaire CHRIS-7 Date CHRIS - 7 assessed: 07/08/24 Feeling nervous, anxious, or on edge: 0 = Not at all Not being able to stop or control worryin = Not at all Worrying too much about different things: 0 = Not at all Trouble relaxin = Not at all Being so restless that it is hard to sit still: 0 = Not at all Becoming easily annoyed or irritable: 0 = Not at all Feeling afraid as if something awful might happen: 0 = Not at all Total CHRIS-7 score (0-4 normal; 5-9 mild; 10-14 moderate; 15-21 severe): 0 Source: Developed by Drs. Koko Dupree, Charito Ruffin, Deejay Parisi and colleagues, with an educational hope from [employer]. CHRIS-7 Assessment Billing CHRIS-7 Assessment Tool: CHRIS-7 Assessment 13307 Review of Systems Const All systems reviewed & are unremarkable except as noted in HPI and below Card Denies chest pain at rest, Denies chest pain with activity, Denies edema, Denies irregular heart rhythm, Denies claudication, Denies dyspnea, Denies dyspnea on exertion, Denies orthopnea, Denies paroxysmal nocturnal dyspnea and Denies slow heart rate Resp Denies cough, Denies dyspnea and Denies dyspnea on exertion GI Denies abdominal pain, Denies change in bowel habits, Denies excessive flatus, Denies nausea and Denies vomiting Denies urinary hesitancy, Denies urinary incontinence and Denies urinary urgency Musc Denies abnormal gait, Denies atrophy, Denies deformity and Denies limited range of motion Skin/Breast Denies bleeding lesions, Denies changing lesions and Denies rash Neuro Denies abnormal gait, Denies behavioral changes and Denies lack of coordination Psych Denies behavioral changes Physical exam (Primary Care) Vital Signs: Last Vital Signs Temp 97.5 F 07/08/24 10:03 Pulse 78 07/08/24 10:03 BP 116/66 07/08/24 10:03 Pulse Ox 98 07/08/24 10:03 Oxygen Delivery Method Room Air 07/08/24 10:03 BMI result Body Mass Index 23.8 Tobacco/Smoking Status: Tobacco use Status Tobacco use date assessed 06/15/24 07/08/24 10:12 Patient Tobacco Use Status Former Tobacco user 07/08/24 10:12 Tobacco use type Cigarette 07/08/24 10:12 e-Cigarette/Vaping Use Never Used 07/08/24 10:12 PHQ-9: PHQ-9 Score PHQ-9: Total score 0 07/08/24 10:35 Depression Screening Interpretation: Negative Thrive Assessment: Date of Thrive Assessment Date Thrive assessed 07/08/24 07/08/24 10:12 Currently or been in a relationship where the following occur: I choose not to answer HENND Head: Yes normal to inspection, Yes normocephalic and Yes atraumatic Ears: external ears normal Eyes General: appearance normal, both eyes and all related structures Eyelids: Yes eyelids normal Conjunctivae: conjunctivae normal Neck Neck: Yes normal visual inspection and Yes supple Resp Effort & Inspection: normal respiratory effort Auscultation: clear to auscultation bilaterally Cardio Jugular venous distension: no JVD Rate: regular rate Rhythm: regular rhythm Heart sounds: S1 normal heart sound present and S2 normal heart sound present GI Inspection: Yes normal to inspection Palpation (GI): Soft to palpation and nontender Auscultation: normal bowel sounds Skin General skin exam: no rashes or lesions noted Neuro General: no focal motor deficits Extrem General: Yes full ROM Psych Appearance: grossly normal Coding Level of Care Code Est Pt Level 3 (07171) Est Pt Prev Care 40-64y(28986) Diagnoses Physical exam Z00.00 Controlled type 2 diabetes mellitus without complication, without long-term current use of insulin E11.9 Diabetes mellitus type: type 2 Hypovitaminosis D E55.9 Additional Codes CHRIS-7 Assessment Billing - CHRIS-7 Assessment Tool: CHRIS-7 Assessment 05668 ([id number]) PHQ-9 - 06435 - PHQ-9 Billing: Yes ([id number]) Time Spent (min) 32 Assessment & Plan Assessment & Plan (1) Physical exam: Code(s): Z00.00 - Encounter for general adult medical examination without abnormal findings Category: Medical (2) Controlled diabetes mellitus without complication, without long-term current use of insulin: Code(s): E11.9 - Type 2 diabetes mellitus without complications Category: Medical Qualifiers: Diabetes mellitus type: type 2 Qualified Code(s): E11.9 - Type 2 diabetes mellitus without complications (3) Hypovitaminosis D: Code(s): E55.9 - Vitamin D deficiency, unspecified Category: Medical Plan Address vitamin D deficiency with recommended supplements. A follow-up Cologuard test is needed by January 2025. Explore alternatives for accessing ophthalmic care if current challenges persist. Previous surgeries and cessation of alcohol and tobacco use should be taken into account. Patient was informed and verbally consented to the use of an ambient scribe for clinic note documentation during this visit. During this visit, discussed the patient's effective management of his diabetes with Trulicity and need for its continuation. Highlighted the importance of sustaining atorvastatin for ideal lipid profile outcomes and maintaining lisinopril for hypertension control. Discussed results of previous labs featuring low vitamin D, prescribing supplements to address deficiency. Planned a repeat Cologuard test for cancer screening in January 2025. Agreed upon potential alternative options for eye care, pending current access difficulties. Discussions included understanding his discontinued alcohol and tobacco use and reviewed surgical history relevant to his sustained wellness. Orders: Orders Lipid Panel 4 Months E78.5 - Hyperlipidemia, unspecified Vitamin D 25-OH Total 4 Months E55.9 - Vitamin D deficiency, unspecified Microalbumin, Random (w Creat) 4 Months R80.9 - Proteinuria, unspecified Comprehensive [place]. Panel Fast 4 Months E11.9 - Type 2 diabetes mellitus without complications Referrals Ophthalmology Referral E11.9 - Type 2 diabetes mellitus without complications Medications: New cholecalciferol (vitamin D3) 50 mcg PO DAILY 90 days 90 caps 1RF E55.9 - Vitamin D deficiency, unspecified Refilled dulaglutide (Trulicity) 0.75 mg (0.5 mL) subcut QWEEK 90 days 6.5 mL 2RF Discontinued hydroxyzine HCl Discontinued Reason: Patient Completed Course 12.5 mg (1/2 x 25 mg) PO BEDTIME PRN 10 tabs 0RF sleep G47.9 - Sleep disorder, unspecified tadalafil (Cialis) administer approximately 30min before sexual activity; do not use more than 1 dose per 24hrs Discontinued Reason: Patient Refused 20 mg PO DAILY 30 days PRN 3 tabs 0RF sexual activity Patient Instructions: - Refill and continue Trulicity as directed for diabetes. - Continue atorvastatin 40 mg daily for cholesterol control. - Persist with lisinopril 2.5 mg daily for blood pressure management. - Take vitamin D supplements as prescribed. - Schedule a Cologuard test for January 2025. - Follow-up on obtaining alternative ophthalmology services if needed. - Maintain current lifestyle choices regarding alcohol and tobacco use.
--- OUTSIDE RECORDS SUMMARY | 2024-07-08 11:26 | XMS_ITS | Clinical Summary ---
Author Organization [employer] Address [address] [place] [address] Care Team Providers Care Tying Machine Operator Name Role Phone Unavailable Primary Care Provider [...] Most Recently Relevant to Health Maintenance Insurance [facility]
--- OUTSIDE RECORDS SUMMARY | 2024-07-08 11:26 | XMS_ITS | Encounter Summary ---
Author Organization [employer] Address [address] [place] [address] Care Team Providers Care Trial Consultant Name Role Phone Unavailable Primary Care Provider Unavailabl e Encounter Details Date Type Department Care Team (Latest Contact Info) Description 03/31/2020 Abstract [facility] CONVERSIONS Dental, Provider, DDS Social History [...]
== END 2024-07-08 10:51 | disposition home or self-care (01) ==
PROVIDERS: PCP Internal Medicine; Visit Provider Internal Medicine
DX: Z00.00 Encounter for general adult medical examination without abnormal findings (principal); E11.9 Type 2 diabetes mellitus without complications; E55.9 Vitamin D deficiency, unspecified

== ENCOUNTER → 2024-07-08 09:57 | Outpatient (BNVA) | payer OTHER, SELFPAY | PROVIDERS: PCP Internal Medicine; Visit Provider Internal Medicine | DX: Z00.00 Encounter for general adult medical examination without abnormal findings (principal); E11.9 Type 2 diabetes mellitus without complications; E55.9 Vitamin D deficiency, unspecified | CPT/HCPCS: 96127; 99212; 99396 ==

== ENCOUNTER 2024-08-10 14:45 | Outpatient (AMB) | payer OTHER, SELFPAY ==
--- NOTE | 2024-08-10 15:00 | A.OFFVIS_ITS ---
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 Apprentice Required: No Accompanied by: Self / Same As Patient Allergies No Known Allergies Allergy (Verified 08/10/24 15:37) Medication List - Last Reconciled 08/10/24 by MAURA Meza atorvastatin 40 mg PO DAILY blood sugar diagnostic (FreeStyle Test strips) Use 1 test strip once a day blood-glucose meter As directed blood-glucose meter (FreeStyle Lite Meter kit) As directed cholecalciferol (vitamin D3) 50 mcg PO DAILY 90 days dulaglutide (Trulicity) 0.75 mg (0.5 mL) subcut QWEEK 90 days lisinopril 2.5 mg PO DAILY 90 days metformin 1,000 mg PO BID 90 days naproxen 500 mg PO BID PRN omeprazole 20 mg PO DAILY 90 days tadalafil (Cialis) 5 mg PO DAILY 90 days tadalafil (Cialis) 10 mg PO .PRN 30 days tramadol 50 mg PO Q6H PRN 30 days HPI Comments Details: Ismael is a very pleasant 58-year-old male patient of Dr. Petersen. He has a past medical history of diabetes, small-bowel obstruction, nicotine dependence quit in 2018, hyperlipidemia, and hypertension. He presents to the office today as a new patient for erectile dysfunction. Patient reports symptoms of erectile dysfunction started approximately 2 years ago shortly after diagnosis of diabetes. He is able to obtain erections however feels maintaining erections to be difficult. He denies having trialed any lifestyle modifications and or interventions for his erectile dysfunction. In review of patient's chart it appears labs are as follows: A1c 07/06 6.0 Testosterone 07/06 284 Free testosterone 07/06 40.9 PSA 07/06 1.0 We discussed potential causes of erectile dysfunction as well as further treatment options and risks and benefits of these treatment options. We discussed borderline hypogonadism in correlation of patient's comorbidities with erectile dysfunction. We discussed lifestyle modifications to assist with ED. He otherwise denies any bothersome urinary issues. He denies urinary urgency, urinary frequency, incontinence, nocturia, hematuria, dysuria, foul smelling urine, changes to urinary stream, flank pain, fever, and or chills. He is happy with his current voiding parameters. He otherwise offers no other issues or concerns at this time. [facility] Medical History Diabetes mellitus Type 2 diabetes mellitus with hyperglycemia, without long-term current use of insulin History of small bowel obstruction Personal history of nicotine dependence Hyperlipidemia LDL goal <70 Sleeping difficulty Diverticulitis Controlled diabetes mellitus without complication, without long-term current use of insulin Essential hypertension Surgical History History of carpal tunnel surgery History of exploratory laparotomy (~2007) History of colectomy (~2002) History of tooth extraction (~2022) History of colostomy reversal (~2005) Family History Father CVD (cardiovascular disease) Mother CVD (cardiovascular disease) Diabetes Social History Household Members: Spouse and Children Housing: Apartment Alcohol intake: former Patient Tobacco Use Status: Former Tobacco user Tobacco use type: Cigarette Years Smoked: (onset 22yo, 1-2ppd x 30yrs, 45pyh - quit 2018) e-Cigarette/Vaping Use: Never Used Second Hand Smoke Exposure: No service: No Current occupational status: disabled Current occupational exposures/hazards: No Cognitive needs: No Hearing needs: No Vision needs: Yes Review of Systems Const All systems reviewed & are unremarkable except as noted in HPI and below Physical Exam Const General: cooperative, healthy appearing, comfortable, no acute distress, well developed, alert and awake Orientation/consciousness: patient oriented x3 Limitations: no limitations HEENT Head: Yes normal to inspection, Yes normocephalic and Yes atraumatic Ears: hearing grossly normal bilaterally Eyes General: appearance normal, both eyes and all related structures Neck Neck: Yes normal visual inspection and Yes trachea midline Chest Chest palpation & inspection: normal inspection of the chest Resp Effort & Inspection: normal respiratory effort and able to speak in complete sentences Cardio Rate: regular rate GI Inspection: Yes normal to inspection General: Yes no CVA tenderness Back/Spine/Pelvis Back: no CVA tenderness Skin General skin exam: no rashes or lesions noted Neuro General: patient oriented x3 Extrem General: Yes normal to inspection Psych Appearance: grossly normal and well kempt Mental Status: mental status grossly normal Speech and movement: Normal speech and movement present and Clear speech present Affect: normal affect Attitude: cooperative Thought process: Normal thought process present Thought content: Normal thought content present Insight: Fair insight present (Psych) Judgement: Fair judgement present (Psych) Results AMB Urinalysis, Automated UA Leukoctes 0 Judson/uL Last Edit by [employer] on 08/10/24 15:12 UA Nitrite Last Edit by [employer] on 08/10/24 15:12 UA Urobilinogen 0.2 mg/dL Last Edit by [employer] on 08/10/24 15:12 UA Protein 15 mg/dL Last Edit by [employer] on 08/10/24 15:12 UA pH 6.0 Last Edit by [employer] on 08/10/24 15:12 UA Blood 0 Joe/uL Last Edit by [employer] on 08/10/24 15:12 UA Specific [place] 1.025 Last Edit by [employer] on 08/10/24 15:12 UA Ketone Last Edit by [employer] on 08/10/24 15:12 UA Bilirubin 0 mg/dL Last Edit by [employer] on 08/10/24 15:12 UA Glucose 0 mg/dL Last Edit by [employer] on 08/10/24 15:12 Results Reviewed Results Reviewed: Laboratory Last Values Urine pH (Auto) 6.0 08/10/24 15:11 Specific [place] (Auto) 1.025 08/10/24 15:11 Urine Protein (Auto) 15 mg/dL 08/10/24 15:11 Glucose (UA)(Auto) 0 mg/dL 08/10/24 15:11 Urine Blood (Auto) 0 Joe/uL 08/10/24 15:11 Urine Bilirubin (Auto) 0 mg/dL 08/10/24 15:11 Urine Urobilinogen (Auto) 0.2 mg/dL 08/10/24 15:11 Leukocyte Esterase (Auto) 0 Judson/uL 08/10/24 15:11 Assessment & Plan Assessment & Plan (1) Erectile dysfunction associated with type 2 diabetes mellitus: Code(s): E11.69 - Type 2 diabetes mellitus with other specified complication; N52.1 - Erectile dysfunction due to diseases classified elsewhere Category: Medical Plan In office urinalysis results reviewed with the patient today; as noted above. Recent testosterone, free testosterone, and PSA results reviewed with the patient today; as noted above. We discussed potential causes of ED as well as further treatment options and risks and benefits of these treatment options. We discussed importance of lifestyle modifications to assist with ED as well as overall health and well-being. Start Cialis 5 mg daily as discussed and prescribed. Prescription provided for p.r.n. dosing prior to sexual activity. Patient currently denies any bothersome urinary issues or concerns. Will obtain testosterone, free testosterone, and LH in 3 months Follow-up in 3 months with labs to be completed prior; or sooner with any issues, concerns, and or questions. Orders: Orders Lutenizing Hormone Today E11.69 - Type 2 diabetes mellitus with other specified complication, N52.1 - Erectile dysfunction due to diseases classified elsewhere AMB Urinalysis Automated Today Z13.9 - Encounter for screening, unspecified Testosterone, Free/Total Today E11.69 - Type 2 diabetes mellitus with other specified complication, N52.1 - Erectile dysfunction due to diseases classified elsewhere Medications: New tadalafil (Cialis) [id number] [facility][NOTE 3] [id number] Member [id number] 5 mg PO DAILY 90 tabs 1RF 90 days tadalafil (Cialis) Take 1-2 tablets 30-60 minutes prior to sexual activity. Do not exceed more than 3 times per week [id number] [facility][NOTE 3] [id number] Member [id number] 10 mg PO .PRN 20 tabs 3RF 30 days Patient Instructions: The patient had an opportunity to ask questions regarding the treatment plan. All questions were answered. Physical exam, labs, and imaging were discussed and reviewed in detail. As well as risks, benefits, and discussion of treatment choices. No major barriers to understanding were identified. The patient expressed understanding and agreement with the above treatment plan. The patient was made aware they should contact our office by phone for worsening of their current condition, the appearance of new symptoms, or with any questions or concerns. Compliance is encouraged with any medications and follow up testing that is ordered. It is a privilege to be allowed the opportunity to participate in? your urological care.? Again, if you have any questions or concerns If you have any questions or concerns please do not hesitate to contact me. The office is [phone]. This note is constructed using voice recognition software. While every effort has been made to ensure accuracy astronomy teacher errors may have been included. Yours sincerely, MAURA Meza Coding Level of Care Code New Pt Level 4 (30634) Diagnoses Erectile dysfunction associated with type 2 diabetes mellitus E11.69; N52.1
--- OUTSIDE RECORDS SUMMARY | 2024-08-10 17:36 | XMS_ITS | Encounter Summary ---
Author Organization [employer] [facility] Address [address] [place] [address] Care Team Providers Care Enterprise Account Manager Name Role Phone Unavailable Primary Care Provider Unavailabl e Encounter Details Date Type Department Care Team (Latest Contact Info) Description 03/31/2020 Abstract [facility] CONVERSIONS Dental, Provider, DDS Social History [...]
--- OUTSIDE RECORDS SUMMARY | 2024-08-10 17:36 | XMS_ITS | Clinical Summary ---
Author Organization [employer] Address [address] [place] [address] Care Team Providers Care Bpm Analyst Name Role Phone Unavailable Primary Care Provider [...] Most Recently Relevant to Health Maintenance Insurance [facility]
== END 2024-08-10 15:24 | disposition home or self-care (01) ==
LOC: HO.HUSH 14:46
PROVIDERS: PCP Internal Medicine; Visit Provider Nurse Practitioner Family
DX: E11.69 Type 2 diabetes mellitus with other specified complication (principal); N52.1 Erectile dysfunction due to diseases classified elsewhere; Z13.9 Encounter for screening, unspecified
CPT/HCPCS: 99204

== ENCOUNTER → 2024-08-10 14:45 | Outpatient (BNVA) | payer OTHER, SELFPAY | PROVIDERS: PCP Internal Medicine; Visit Provider Nurse Practitioner Family | DX: E11.69 Type 2 diabetes mellitus with other specified complication (principal); N52.1 Erectile dysfunction due to diseases classified elsewhere | CPT/HCPCS: 81003; 99202 ==

== ENCOUNTER 2024-11-15 13:55 | Outpatient (AMB) | payer OTHER, SELFPAY ==
[2024-11-15 14:03] VITALS: BP 112/70; BMI 23.9
--- NOTE | 2024-11-15 14:03 | AM.OFFVISMDC ---
Intake Vital Signs 11/15/24 14:03 Height 5 ft 6 in Weight 55.338 kg BMI 19.7 Intake Visit Reasons: DM- A1C needed. Intake Note: Patient here for a follow up DM Hospice Manager Required: No Accompanied by: Staff Allergies No Known Allergies Allergy (Verified 11/15/24 14:04) [facility] Medical History Diabetes mellitus Type 2 diabetes mellitus with hyperglycemia, without long-term current use of insulin History of small bowel obstruction Personal history of nicotine dependence Hyperlipidemia LDL goal <70 Sleeping difficulty Diverticulitis Controlled diabetes mellitus without complication, without long-term current use of insulin Essential hypertension Surgical History History of carpal tunnel surgery History of exploratory laparotomy (~2007) History of colectomy (~2002) History of tooth extraction (~2022) History of colostomy reversal (~2005) Family History Father CVD (cardiovascular disease) Mother CVD (cardiovascular disease) Diabetes Social History Household Members: Spouse and Children Housing: Apartment Alcohol intake: former Patient Tobacco Use Status: Former Tobacco user Tobacco use type: Cigarette Years Smoked: (onset 22yo, 1-2ppd x 30yrs, 45pyh - quit 2017) e-Cigarette/Vaping Use: Never Used Second Hand Smoke Exposure: No service: No Current occupational status: disabled Current occupational exposures/hazards: No Cognitive needs: No Hearing needs: No Vision needs: Yes Questionnaire PHQ-9 Over the last 2 weeks, how often have you been bothered by any of the following problems? 1. Little interest or pleasure in doing things: not at all 2. Feeling down, depressed, or hopeless: not at all 3. Trouble falling or staying asleep, or sleeping too much: not at all 4. Feeling tired or having little energy: several days 5. Poor appetite or overeating: not at all 6. Feeling bad about yourself - or that you are a failure or have let yourself or your family down: not at all 7. Trouble concentrating on things, such as reading the newspaper or watching television: not at all 8. Moving or speaking so slowly that other people could have noticed. Or the opposite - being so fidgety or restless that you have been moving around a lot more than usual: not at all 9. Thoughts that you would be better off or of hurting yourself in some way: not at all Total score: 1 Source: Developed by Drs. Koko Dupree, Charito Ruffin, Deejay Parisi and colleagues, with an educational hope from [employer]. Quality Reporting (2020) Depression/Bipolar (159/160/161/177) PHQ-9: Total score: 1 Coding
--- NOTE | 2024-11-15 14:16 | MHC.PC.OV ---
Vital Signs 11/15/24 14:03 Height 5 ft 6 in Weight 148 lb BMI 23.9 BP 112/70 Blood Pressure Location Lt brachial Position Sitting Intake Visit Reasons: DM- A1C needed. Intake Note: Patient here for a follow up DM Environmental Protection Inspector Required: No Accompanied by: Self / Same As Patient Allergies No Known Allergies Allergy (Verified 11/15/24 14:37) Medication List - Last Reconciled 11/15/24 by Chary Francois MD atorvastatin 40 mg PO DAILY blood sugar diagnostic (FreeStyle Test strips) Use 1 test strip once a day blood-glucose meter As directed blood-glucose meter (FreeStyle Lite Meter kit) As directed cholecalciferol (vitamin D3) 50 mcg PO DAILY 90 days dulaglutide (Trulicity) 0.75 mg (0.5 mL) subcut QWEEK 90 days lisinopril 2.5 mg PO DAILY 90 days metformin 1,000 mg PO BID 90 days naproxen 500 mg PO BID PRN omeprazole 20 mg PO DAILY 90 days tadalafil (Cialis) 5 mg PO DAILY 90 days tadalafil (Cialis) 10 mg PO .PRN 30 days tramadol 50 mg PO Q6H PRN 30 days Tobacco use date assessed: 06/15/24 Dental Screening Dental Screen Date: 11/15/24 Did you have a dental visit in the last 12 months?: No Did you have a dental problem in the last 6 months where you did not have access to dental care?: No Was dental information given to patient?: Patient has dentist HPI HPI Comments History of Present Illness Details The patient is a 59-year-old male presenting for management of chronic conditions including diabetes, hyperlipidemia, and hypertension, as well as evaluation of nephrolithiasis and erectile dysfunction. The patient's diabetes is currently well-controlled with an A1c of 6.1, and he is on metformin and Trulicity for management. His blood pressure is well-managed with lisinopril, and he is on atorvastatin for hyperlipidemia, with the last cholesterol levels being within goal. The patient reports a history of nephrolithiasis, having passed a stone recently, which was described as transparent with red tinges. He has been advised to take vitamin B6 to prevent further stone formation. The patient also experiences erectile dysfunction, which is part of his current health concerns. Additionally, he reports back pain for which he uses tramadol as needed. [facility] Medical History Diabetes mellitus Type 2 diabetes mellitus with hyperglycemia, without long-term current use of insulin History of small bowel obstruction Personal history of nicotine dependence Hyperlipidemia LDL goal <70 Sleeping difficulty Diverticulitis Controlled diabetes mellitus without complication, without long-term current use of insulin Essential hypertension Surgical History History of carpal tunnel surgery History of exploratory laparotomy (~2007) History of colectomy (~2002) History of tooth extraction (~2022) History of colostomy reversal (~2005) Family History Father CVD (cardiovascular disease) Mother CVD (cardiovascular disease) Diabetes Social History Household Members: Spouse and Children Housing: Apartment Alcohol intake: former Patient Tobacco Use Status: Former Tobacco user Tobacco use type: Cigarette Years Smoked: (onset 22yo, 1-2ppd x 30yrs, 45pyh - quit 2017) e-Cigarette/Vaping Use: Never Used Second Hand Smoke Exposure: No service: No Current occupational status: disabled Current occupational exposures/hazards: No Cognitive needs: No Hearing needs: No Vision needs: Yes Questionnaire PHQ-9 Over the last 2 weeks, how often have you been bothered by any of the following problems? 1. Little interest or pleasure in doing things: not at all 2. Feeling down, depressed, or hopeless: not at all 3. Trouble falling or staying asleep, or sleeping too much: not at all 4. Feeling tired or having little energy: several days 5. Poor appetite or overeating: not at all 6. Feeling bad about yourself - or that you are a failure or have let yourself or your family down: not at all 7. Trouble concentrating on things, such as reading the newspaper or watching television: not at all 8. Moving or speaking so slowly that other people could have noticed. Or the opposite - being so fidgety or restless that you have been moving around a lot more than usual: not at all 9. Thoughts that you would be better off or of hurting yourself in some way: not at all Total score: 1 Depression Screening Interpretation: Negative Depression Screening Done: Yes 68535 - PHQ-9 Billing: Yes Source: Developed by Drs. Koko Dupree, Charito Ruffin, Deejay Parisi and colleagues, with an educational hope from [employer]. Thrive Questionnaire Date Thrive assessed: 07/08/24 I am a: Patient What is your living situation today?: I choose not to answer this question Within the past 12 months, did the food you bought not last and you didn't have the money to get more?: I choose not to answer this question Within the past 12 months, did you worry whether your food would run out before you got money to buy more?: I choose not to answer this question Do you have trouble paying for medicines?: No Do you have trouble getting transportation to medical appointments?: No Do you have trouble paying your heating and electricity bill?: No Do you have trouble taking care of your child, family member or friend?: No Do you have trouble with day-to-day activities such as bathing, preparing meals, shopping, managing finances, etc.?: No Are you currently unemployed and looking for a job?: I choose not to answer this question Are you interested in more education?: I choose not to answer this question Currently or been in a relationship where the following occur: I choose not to answer THRIVE Score: 0 CHRIS-7 AMB Questionnaire CHRIS-7 Date CHRIS - 7 assessed: 07/08/24 Feeling afraid as if something awful might happen: 0 = Not at all Source: Developed by Drs. Koko Dupree, Charito Ruffin, Deejay Parisi and colleagues, with an educational hope from [employer]. Review of Systems Const All systems reviewed & are unremarkable except as noted in HPI and below Card Denies chest pain at rest, Denies chest pain with activity, Denies edema, Denies irregular heart rhythm, Denies claudication, Denies dyspnea, Denies dyspnea on exertion, Denies orthopnea, Denies paroxysmal nocturnal dyspnea and Denies slow heart rate Resp Denies cough, Denies dyspnea and Denies dyspnea on exertion GI Denies abdominal pain, Denies change in bowel habits, Denies excessive flatus, Denies nausea and Denies vomiting Physical exam (Primary Care) Vital Signs: Last Vital Signs BP 112/70 11/15/24 14:03 BMI result Body Mass Index 23.9 Tobacco/Smoking Status: Tobacco use Status Tobacco use date assessed 06/15/24 11/15/24 14:23 Patient Tobacco Use Status Former Tobacco user 11/15/24 14:23 Tobacco use type Cigarette 11/15/24 14:23 e-Cigarette/Vaping Use Never Used 11/15/24 14:23 PHQ-9: PHQ-9 Score PHQ-9: Total score 1 11/15/24 15:32 Depression Screening Interpretation: Negative Thrive Assessment: Date of Thrive Assessment Date Thrive assessed 07/08/24 11/15/24 14:23 Currently or been in a relationship where the following occur: I choose not to answer Resp Effort & Inspection: normal respiratory effort Auscultation: clear to auscultation bilaterally Cardio Jugular venous distension: no JVD Rate: regular rate Rhythm: regular rhythm Heart sounds: S1 normal heart sound present and S2 normal heart sound present Extrem General: Yes full ROM Results AMB Hemoglobin A1c AMB Hemoglobin A1c 6.1 % Last Edit by ESPERANZA Gonzalez on 11/15/24 14:28 Results Reviewed Results Reviewed: Laboratory Last Values Hgb A1c (Clinic) 6.1 % (4.0-6.0) H 11/15/24 14:17 Coding Level of Care Code Est Pt Level 4 (34246) Complex EM visit Add On G2211 Diagnoses Controlled diabetes mellitus without complication, without long-term current use of insulin E11.9 Essential hypertension I10 Hyperlipidemia LDL goal <70 E78.5 Chronic GERD K21.9 Additional Codes PHQ-9 - 88859 - PHQ-9 Billing: Yes ([id number]) Time Spent (min) 23 Assessment & Plan Assessment & Plan (1) Controlled diabetes mellitus without complication, without long-term current use of insulin: Code(s): E11.9 - Type 2 diabetes mellitus without complications Category: Medical (2) Essential hypertension: Code(s): I10 - Essential (primary) hypertension Category: Medical (3) Hyperlipidemia LDL goal <70: Code(s): E78.5 - Hyperlipidemia, unspecified Category: Medical (4) Chronic GERD: Code(s): K21.9 - Gastro-esophageal reflux disease without esophagitis Category: Medical Plan The patient's diabetes management will continue with metformin and Trulicity, given the well-controlled A1c of 6.1%. Blood pressure management with lisinopril will be maintained, and atorvastatin will continue for hyperlipidemia, with a follow-up cholesterol check planned in four months. For nephrolithiasis, vitamin B6 supplementation is recommended to prevent further stone formation. The patient is advised to monitor for any signs of recurrence and report any new symptoms. Erectile dysfunction will be monitored, and further evaluation may be considered if symptoms persist. For back pain, tramadol will be used as needed, and the patient is advised to report any changes in pain severity or frequency. Patient was informed and verbally consented to the use of an ambient scribe for clinic note documentation during this visit. Orders: Orders AMB Hemoglobin A1c Today E11.9 - Type 2 diabetes mellitus without complications Lipid Panel 4 Months E78.5 - Hyperlipidemia, unspecified Microalbumin, Random (w Creat) 4 Months R80.9 - Proteinuria, unspecified Vitamin D 25-OH Total 4 Months E55.9 - Vitamin D deficiency, unspecified Comprehensive Clear. Panel Fast 4 Months E11.9 - Type 2 diabetes mellitus without complications Medications: New pyridoxine (vitamin B6) 50 mg PO DAILY 90 tabs 1RF 90 days
--- OUTSIDE RECORDS SUMMARY | 2024-11-15 14:22 | XMS_ITS | Patient Health Record ---
Author Organization [facility] Address [address] [place] [address] Care Team Providers Care Bench Lay Out Technician Name Role Phone Chary Fuentes Primary Care Provider Jared Dee Jr Unavailable Reason For Referral No Information Medications Medication SIG (Take, Route, Frequency, Duration) Notes Start Date End Date Status Omeprazole 20 MG 2 capsules Orally On ce a day for 30 day(s) 01/24/2016 Active traZODone HCl 50 MG 1 tablet at bedtime Orally Once a day Active Colyte with Flavor Packs 240 GM As directed Orally Over the specified time. for 1 day(s) 01/24/2016 Active traMADol HCl 50 MG one tablet Orally on ce a day Active Omeprazole 20 MG 1 capsule Orally Onc e a day Active Centrum 1 1 tablet Orally once a day Active Social History Tobacco Use: Social History Observation Description Date Details (start date - stop date) Current Smoker NA - NA Tobacco Use/Smoking Question Answer Notes Patient is a current smoker How often do you smoke cigarettes? every day How many cigarettes a day do you smoke? 21-30 How soon after you wake up do you smoke your fir st cigarette? 6-30 minutes Alcohol Screen Question Answer Notes Did you have a drink containing alcohol in the p ast year? No Points 0 Interpretation Negative Problems Problem Type SNOMED Code ICD Code Onset Dates Problem Status W/U Status Risk Notes Problem 449499077 Colon cancer screening (Z12.11) Active confirmed Problem 473589279 Left upper quadrant pain (R10.12) Active confirmed Plan Of Treatment Future Test Test Name Order Date UPPER GI ENDOSCOPY 01/24/2016 COLONOSCOPY 01/24/2016 Insurance Providers Payer Name Payer Address Payer Phone Subscriber Number Group Number Insured Name Patient Relationship to Insured Coverage Start Date Coverage End Date MEDICARE OF [place] [address] DASHA SIDHU [id number] MEHUL HARRISON Self - patient is the insured MEDICAID OF [facility] [address] [place] [id number] [phone] [id number] MEHUL HARRISON Self - patient is the insured Medical (General) History Medical History History ICD Code history of constipation and diarrhea history of bilateral , lower quadrant abdominal pain sometimes relieved with a bowel movement history of diverticulitis with perforati on and colostomy with repair Surgical History Surgery Date(Month/Year) appendectomy exploratory laparotomy 2002 hernicolectomy with colostomy bag 2002 multiple abdominal surgerys due to incis ional hernia x8 colostomy removal
--- OUTSIDE RECORDS SUMMARY | 2024-11-15 14:22 | XMS_ITS | Encounter Summary ---
Author Organization [employer] Address [address] [place] [address] [address] [place] [address] Care Team Providers Care Client Coordinator Name Role Phone Unavailable Primary Care Provider Unavailabl e Encounter Details Date Type Department Care Team (Latest Contact Info) Description 11/15/2024 Travel Social History Tobacco Use Types Packs/Day Years [...] as of this encounter Plan of Treatment Upcoming Encounters Date Type Department Care Team (Late st Contact Info) Description 11/22/2024 1:30 PM EDT Office Visit [facility] [address] [place] [address] Eduardo Ghotra, DMD [address] [place] [address] documented as of this encounter Visit Diagnoses Not on filedocumented in this encounter
== END 2024-11-15 14:48 | disposition home or self-care (01) ==
LOC: HO.HMCH 13:56
PROVIDERS: PCP Internal Medicine; Visit Provider Internal Medicine
DX: E11.9 Type 2 diabetes mellitus without complications (principal); I10 Essential (primary) hypertension; E78.5 Hyperlipidemia, unspecified; K21.9 Gastro-esophageal reflux disease without esophagitis

== ENCOUNTER → 2024-11-15 13:55 | Outpatient (BNVA) | payer OTHER, SELFPAY | PROVIDERS: PCP Internal Medicine; Visit Provider Internal Medicine | DX: E11.9 Type 2 diabetes mellitus without complications (principal); E78.5 Hyperlipidemia, unspecified; I10 Essential (primary) hypertension; K21.9 Gastro-esophageal reflux disease without esophagitis; R80.9 Proteinuria, unspecified; E55.9 Vitamin D deficiency, unspecified | CPT/HCPCS: 83036; 96127; 99212 ==

== ENCOUNTER 2025-02-11 06:20 | Outpatient (REF) | payer OTHER, SELFPAY ==
--- OUTSIDE RECORDS SUMMARY | 2025-02-11 06:22 | XMS_ITS | Patient Health Record ---
Author Organization [facility] Address [address] [place] [address] Care Team Providers Care Patternmaker All Around Name Role Phone Chary Fuentes Primary Care [...] Problem Status W/U Status Risk Notes Problem [id number] Colon cancer screening (Z12.11) Active confirmed Problem [id number] Left upper quadrant pain (R10.12) Active confirmed Plan Of Treatment Future Test Test Name Order Date UPPER GI ENDOSCOPY 01/24/2016 COLONOSCOPY 01/24/2016 Insurance Providers Payer Name Payer Address Payer Phone Subscriber Number Group Number Insured Name Patient Relationship to Insured Coverage Start Date Coverage End Date MEDICARE OF [place] [address] DASHA SIDHU [id number] MEHUL HARRISON Self - patient is the insured MEDICAID OF [facility] [address] [place] [id number] [phone] [id number] MEUHL HARRISON Self - patient is the insured [...]
[2025-02-17 19:27] LABS: Testosterone, Free 45.7 pg/mL (35.0-155.0)
== END 2025-02-11 06:21 | disposition home or self-care (01) ==
LOC: HO.LAB 06:20
PROVIDERS: PCP Internal Medicine; Visit Provider Nurse Practitioner Family
DX: E11.69 Type 2 diabetes mellitus with other specified complication (principal); N52.1 Erectile dysfunction due to diseases classified elsewhere
CPT/HCPCS: 36415; 84402; 84403

== ENCOUNTER 2025-03-15 10:22 | Outpatient (AMB) | payer OTHER, SELFPAY ==
--- NOTE | 2025-03-15 10:24 | A.OFFVIS_ITS ---
Intake Visit Reasons: Labs f/u Intake Note: Patient is present for Labs follow up Urology Med: Tadalafil Antibiotic Allergy: None Blood Thinner: None Business Development Consultant Required: No Accompanied by: Self / Same As Patient Allergies No Known Allergies Allergy (Verified 03/15/25 11:01) Medication List - Last Reconciled 03/15/25 by MAURA Meza atorvastatin 40 mg PO DAILY blood sugar diagnostic (FreeStyle Test strips) Use 1 test strip once a day blood-glucose meter As directed blood-glucose meter (FreeStyle Lite Meter kit) As directed cholecalciferol (vitamin D3) 50 mcg PO DAILY 90 days dulaglutide (Trulicity) 0.75 mg (0.5 mL) subcut QWEEK 90 days lisinopril 2.5 mg PO DAILY 90 days metformin 1,000 mg PO BID 90 days naproxen 500 mg PO BID PRN omeprazole 20 mg PO DAILY 90 days pyridoxine (vitamin B6) 50 mg PO DAILY 90 days tadalafil (Cialis) 10 mg PO .PRN 30 days tramadol 50 mg PO Q6H PRN 30 days HPI Comments Details: Ismael is a very pleasant 59-year-old male patient of Dr. Petersen. He has a past medical history of diabetes, small-bowel obstruction, nicotine dependence quit in 2018, hyperlipidemia, and hypertension. He presents to the office today for follow-up. Of note, patient was seen approximately 6 months ago as a new patient for erectile dysfunction at which time discussion regarding potential causes and treatment options for ED were discussed. Patient was given prescription for p.r.n. dosing of Cialis. In discussion with the patient today he does report significant improvement with PRN dosing. He reports utilizing it 1 time per week. We did discussed slight increase in testosterone levels over the last 6 months. We did again discuss and review potential causes of ED as well as further treatment options and risks and benefits of these treatment opt ions. He is happy with current management and would like to continue. Labs are as follows: A1c 07/06 6.0, 12/03 6.1 Testosterone 07/06 284, 03/05 336 Free testosterone 07/06 40.9, 03/05 45.7 PSA 07/06 1.0 We discussed borderline hypogonadism in correlation of patient's comorbidities with erectile dysfunction. We discussed and reviewed lifestyle modifications to assist with ED. He otherwise denies any bothersome urinary issues. He denies urinary urgency, urinary frequency, incontinence, nocturia, hematuria, dysuria, foul smelling urine, changes to urinary stream, flank pain, fever, and or chills. In office urinalysis results reviewed with the patient today. He is happy with his current voiding parameters. He otherwise offers no other issues or concerns at this time. [facility] Medical History (Reviewed 03/15/25 @ 11:22 by Mary Grace Olvera [facility]) Diabetes mellitus Type 2 diabetes mellitus with hyperglycemia, without long-term current use of insulin History of small bowel obstruction Personal history of nicotine dependence Hyperlipidemia LDL goal <70 Sleeping difficulty Diverticulitis Controlled diabetes mellitus without complication, without long-term current use of insulin Essential hypertension Surgical History History of carpal tunnel surgery History of exploratory laparotomy (~2007) History of colectomy (~2002) History of tooth extraction (~2022) History of colostomy reversal (~2005) Family History Father CVD (cardiovascular disease) Mother CVD (cardiovascular disease) Diabetes Social History Household Members: Spouse and Children Housing: Apartment Alcohol intake: former Patient Tobacco Use Status: Former Tobacco user Tobacco use type: Cigarette Years Smoked: (onset 22yo, 1-2ppd x 30yrs, 45pyh - quit 2017) e-Cigarette/Vaping Use: Never Used Second Hand Smoke Exposure: No service: No Current occupational status: disabled Current occupational exposures/hazards: No Cognitive needs: No Hearing needs: No Vision needs: Yes Review of Systems Const All systems reviewed & are unremarkable except as noted in HPI and below Physical Exam Const General: cooperative, healthy appearing, comfortable, no acute distress, well de veloped, alert and awake Orientation/consciousness: patient oriented x3 Limitations: no limitations HEENT Head: Yes normal to inspection, Yes normocephalic and Yes atraumatic Ears: hearing grossly normal bilaterally Eyes General: appearance normal, both eyes and all related structures Neck Neck: Yes normal visual inspection and Yes trachea midline Chest Chest palpation & inspection: normal inspection of the chest Resp Effort & Inspection: normal respiratory effort and able to speak in complete sentences Cardio Rate: regular rate GI Inspection: Yes normal to inspection General: Yes no CVA tenderness Back/Spine/Pelvis Back: no CVA tenderness Skin General skin exam: no rashes or lesions noted Neuro General: patient oriented x3 Extrem General: Yes normal to inspection Psych Appearance: grossly normal and well kempt Mental Status: mental status grossly normal Speech and movement: Normal speech and movement present and Clear speech present Affect: normal affect Attitude: cooperative Thought process: Normal thought process present Thought content: Normal thought content present Insight: Fair insight present (Psych) Judgement: Fair judgement present (Psych) Results AMB Urinalysis, Automated UA Leukoctes 0 Judson/uL Last Edit by Arminda Wesley Jumana on 03/15/25 10:50 UA Nitrite Negative Last Edit by Arminda Wesley [facility] on 03/15/25 10:50 UA Urobilinogen 0.2 mg/dL Last Edit by Arminda Wesley [facility] on 03/15/25 10:5 0 UA Protein 0 mg/dL Last Edit by Arminda Wesley [facility] on 03/15/25 10:50 UA pH 6.0 Last Edit by Arminda Wesley [facility] on 03/15/25 10:50 UA Blood 0 Joe/uL Last Edit by Arminda Wesley [facility] on 03/15/25 10:50 UA Specific Bannister 1.025 Last Edit by Arminda Wesley [facility] on 03/15/25 10: 50 UA Ketone Negative Last Edit by Arminda Wesley [facility] on 03/15/25 10:50 UA Bilirubin 0 mg/dL Last Edit by Arminda Wesley [facility] on 03/15/25 10:50 UA Glucose 0 mg/dL Last Edit by Arminda Wesley [facility] on 03/15/25 10:50 Results Reviewed Results Reviewed: Laboratory Last Values Urine pH (Auto) 6.0 03/15/25 10:49 Specific Bannister (Auto) 1.025 03/15/25 10:49 Urine Protein (Auto) 0 mg/dL 03/15/25 10:49 Glucose (UA)(Auto) 0 mg/dL 03/15/25 10:49 Urine Ketones (Auto) Negative 03/15/25 10:49 Urine Blood (Auto) 0 Joe/uL 03/15/25 10:49 Urine Nitrite (Auto) Negative 03/15/25 10:49 Urine Bilirubin (Auto) 0 mg/dL 03/15/25 10:49 Urine Urobilinogen (Auto) 0.2 mg/dL 03/15/25 10:49 Leukocyte Esterase (Auto) 0 Judson/uL 03/15/25 10:49 Assessment & Plan Assessment & Plan (1) Erectile dysfunction associated with type 2 diabetes mellitus: Code(s): E11.69 - Type 2 diabetes mellitus with other specified complication; N52.1 - Erectile dysfunction due to diseases classified elsewhere Category: Medical Plan In office urinalysis results reviewed with the patient today; as noted above. Most recent testosterone labs were reviewed with the patient today; as noted above. We did discuss erectile dysfunction at length; we discussed further treatment o ptions and risks and benefits of these treatment options. All questions were answered. Prescription provided for daily dosing of Cialis. He currently denies any bothersome urinary issues. He reports be happy with current voiding parameters. We did discussed lifestyle modifications to assist with ED as well as overall health and well-being. We also discussed the importance of management and diabetes for improvement in urological health as well as overall health and well-being. Will obtain LH, PSA, and testosterone in 4-6 months. Follow-up in 4-6 months with labs; or sooner with any issues, concerns, and or questions. Orders: Orders AMB Urinalysis Automated Today Z13.9 - Encounter for screening, unspecified Lutenizing Hormone 4 Months . - Type 2 diabetes mellitus with other specified complication, N52.1 - Erectile dysfunction due to diseases classified elsewhere Testosterone, Free/Total 4 Months E11. - Type 2 diabetes mellitus with other specified complication, N52.1 - Erectile dysfunction due to diseases classified elsewhere Prostate Specific Antigen 4 Months E11. - Type 2 diabetes mellitus with other specified complication, N52.1 - Erectile dysfunction due to diseases classified elsewhere Medications: New tadalafil (Cialis) [id number] [facility] [id number] Member [id number] 5 mg PO DAILY 90 tabs 2RF sexual activity 90 days Coding Level of Care Code Est Pt Level 3 (83037) Complex EM visit Add On G2211 Diagnoses Erectile dysfunction associated with type 2 diabetes mellitus E11.69; N52.1
--- OUTSIDE RECORDS SUMMARY | 2025-03-15 12:10 | XMS_ITS | Patient Health Record ---
Author Organization [facility] Address [address] [place] [address] Care Team Providers Care Clinical Medical Assistant Name Role Phone Chary Fuentes Primary Care Provider UnavailJared Lainez Jr Unavailable Reason For Referral No Information Medications Medication SIG (Take, Route, Frequency, Duration) Notes Start Date End Date Status Omeprazole 20 MG 2 capsules Orally On ce a day; Duration: 30 day(s) 01/24/2016 Active traZODone HCl 50 MG 1 tablet at bedtime Orally Once a day Active Colyte with Flavor Packs 240 GM As directed Orally Over the specified time.; Duration: 1 day(s) 01/24/2016 Active traMADol HCl 50 [...] Problem Status W/U Status Risk Notes Problem Colon cancer screening (087392870) Colon cancer screening (Z12.11) Active confirmed Problem Left upper quadrant pain (636814155) Left upper quadrant pain (R10.12) Active confirmed Plan Of Treatment Future Test Test Name Order Date UPPER GI ENDOSCOPY 01/24/2016 COLONOSCOPY 01/24/2016 Insurance Providers Payer Name Payer Address Payer Phone Subscriber Number Group Number Insured Name Patient Relationship to Insured Coverage Start Date Coverage End Date MEDICARE OF [place] [address] [place] S[place] [id number] MEHUL HARRISON Self - patient is the insured MEDICAID OF [facility] [address] [place] [phone] [id number] MEHUL HARRISON Self - patient is the [...]
== END 2025-03-15 11:17 | disposition home or self-care (01) ==
LOC: HO.HUSH 10:22
PROVIDERS: PCP Internal Medicine; Visit Provider Nurse Practitioner Family
DX: E11.69 Type 2 diabetes mellitus with other specified complication (principal); N52.1 Erectile dysfunction due to diseases classified elsewhere; Z13.9 Encounter for screening, unspecified
CPT/HCPCS: 99213; G2211

== ENCOUNTER → 2025-03-15 10:22 | Outpatient (BNVA) | payer OTHER, SELFPAY | PROVIDERS: PCP Internal Medicine; Visit Provider Nurse Practitioner Family | DX: E11.69 Type 2 diabetes mellitus with other specified complication (principal); N52.1 Erectile dysfunction due to diseases classified elsewhere; Z13.9 Encounter for screening, unspecified | CPT/HCPCS: 81003; 99212 ==

== ENCOUNTER 2025-03-22 14:33 | Outpatient (AMB) | payer OTHER, SELFPAY ==
--- NOTE | 2025-03-22 14:51 | MHC.PC.OV ---
Vital Signs 03/22/25 14:52 Height 5 ft 6 in Weight 148 lb BMI 23.9 BP 132/62 Blood Pressure Location Lt brachial Position Sitting Pulse 84 Pulse Source Pulse Oximeter Temp 97.3 F Temp Source Temporal Artery Scan Pulse Oximetry (%) 96 Oxygen Delivery Method Room Air Intake Visit Reasons: dm Intake Note: Patient is here to follow up on DM. Transformer Coil Winder Required: No Coroner: Not Required per policy Accompanied by: Self / Same As Patient Allergies No Known Allergies Allergy (Verified 03/22/25 15:09) Medication List - Last Reconciled 03/22/25 by Chary Francois MD atorvastatin 40 mg PO DAILY blood sugar diagnostic (FreeStyle Test strips) Use 1 test strip once a day blood-glucose meter As directed blood-glucose meter (FreeStyle Lite Meter kit) As directed cholecalciferol (vitamin D3) 50 mcg PO DAILY 90 days dulaglutide (Trulicity) 0.75 mg (0.5 mL) subcut QWEEK 90 days lisinopril 2.5 mg PO DAILY 90 days metformin 1,000 mg PO BID 90 days naproxen 500 mg PO BID PRN omeprazole 20 mg PO DAILY 90 days pyridoxine (vitamin B6) 50 mg PO DAILY 90 days tramadol 50 mg PO Q6H PRN 30 days Tobacco use date assessed: 03/22/25 Dental Screening Dental Screen Date: 11/15/24 HPI HPI Comments History of Present Illness Details The patient is a 59-year-old male presenting for a follow-up visit for chronic condition management and to address a new complaint of auditory distortion. His recent hemoglobin A1c was 6.3%, which is within the goal of less than 7%. He reports taking metformin 1,000 mg twice a day for diabetes, lisinopril 2.5 mg for well-controlled blood pressure, and atorvastatin 40 mg, which is working well. He also takes vitamin D. For gastrointestinal issues, the patient uses omeprazole as needed for acid reflux and naproxen with food. He reports a new symptom of auditory distortion in both ears, particularly with sounds like music. In terms of preventative health, the patient received an influenza vaccine in January and his other vaccinations are up to date. His last Cologuard test for colon cancer screening was performed in 2019. He has follow-up appointments scheduled for July with both his urologist and primary care provider. He denies any known medication allergies. [facility] Medical History (Updated 03/22/25 @ 15:19 by Chary Francois MD) Diabetes mellitus Type 2 diabetes mellitus with hyperglycemia, without long-term current use of insulin History of small bowel obstruction Personal history of nicotine dependence Hyperlipidemia LDL goal <70 Sleeping difficulty Diverticulitis Controlled diabetes mellitus without complication, without long-term current use of insulin Essential hypertension Surgical History History of carpal tunnel surgery History of exploratory laparotomy (~2007) History of colectomy (~2002) History of tooth extraction (~2022) History of colostomy reversal (~2005) Family History Father CVD (cardiovascular disease) Mother CVD (cardiovascular disease) Diabetes Social History Household Members: Spouse and Children Housing: Apartment Alcohol intake: former Patient Tobacco Use Status: Former Tobacco user Tobacco use type: Cigarette Years Smoked: (onset 22yo, 1-2ppd x 30yrs, 45pyh - quit 2017) e-Cigarette/Vaping Use: Never Used Second Hand Smoke Exposure: Yes service: No Current occupational status: disabled Current occupational exposures/hazards: No Cognitive needs: No Hearing needs: No Vision needs: Yes Questionnaire Thrive Questionnaire Date Thrive assessed: 07/08/24 I am a: Patient What is your living situation today?: I choose not to answer this question Within the past 12 months, did the food you bought not last and you didn't have the money to get more?: I choose not to answer this question Within the past 12 months, did you worry whether your food would run out before you got money to buy more?: I choose not to answer this question Do you have trouble paying for medicines?: No Do you have trouble getting transportation to medical appointments?: No Do you have trouble paying your heating and electricity bill?: No Do you have trouble taking care of your child, family member or friend?: No Do you have trouble with day-to-day activities such as bathing, preparing meals, shopping, managing finances, etc.?: No Are you currently unemployed and looking for a job?: I choose not to answer this question Are you interested in more education?: I choose not to answer this question Currently or been in a relationship where the following occur: I choose not to answer THRIVE Score: 0 CHRIS-7 AMB Questionnaire CHRIS-7 Date CHRIS - 7 assessed: 07/08/24 Source: Developed by Drs. Koko Dupree, Charito Ruffin, Deejay Parisi and colleagues, with an educational hope from [employer]. Review of Systems Const All systems reviewed & are unremarkable except as noted in HPI and below Card Denies chest pain at rest, Denies chest pain with activity, Denies edema, Denies irregular heart rhythm, Denies claudication, Denies dyspnea, Denies dyspnea on exertion, Denies orthopnea, Denies paroxysmal nocturnal dyspnea and Denies slow heart rate Resp Denies cough, Denies dyspnea and Denies dyspnea on exertion Physical exam (Primary Care) Vital Signs: Last Vital Signs Temp 97.3 F 03/22/25 14:52 Pulse 84 03/22/25 14:52 BP 132/62 03/22/25 14:52 Pulse Ox 96 03/22/25 14:52 Oxygen Delivery Method Room Air 03/22/25 14:52 BMI result Body Mass Index 23.9 Tobacco/Smoking Status: Tobacco use Status Tobacco use date assessed 03/22/25 03/22/25 15:00 Patient Tobacco Use Status Former Tobacco user 03/22/25 14:51 Tobacco use type Cigarette 03/22/25 14:51 e-Cigarette/Vaping Use Never Used 03/22/25 14:51 Thrive Assessment: Date of Thrive Assessment Date Thrive assessed 07/08/24 03/22/25 14:51 Currently or been in a relationship where the following occur: I choose not to answer Resp Effort & Inspection: normal respiratory effort Auscultation: clear to auscultation bilaterally Cardio Jugular venous distension: no JVD Rate: regular rate Rhythm: regular rhythm Heart sounds: S1 normal heart sound present and S2 normal heart sound present Extrem General: Yes full ROM Results AMB Hemoglobin A1c AMB Hemoglobin A1c 6.3 % Last Edit by ESPERANZA Carpio on 03/22/25 15:09 Coding Level of Care Code Est Pt Level 4 (64486) Complex EM visit Add On G2211 Diagnoses Controlled type 2 diabetes mellitus without complication, without long-term current use of insulin E11.9 Diabetes mellitus type: type 2 Essential hypertension I10 Hyperlipidemia LDL goal <70 E78.5 Ear discomfort H92.09 Chronic GERD K21.9 Time Spent (min) 21 Assessment & Plan Assessment & Plan (1) Controlled diabetes mellitus without complication, without long-term current use of insulin: Code(s): E11.9 - Type 2 diabetes mellitus without complications Category: Medical Qualifiers: Diabetes mellitus type: type 2 Qualified Code(s): E11.9 - Type 2 diabetes mellitus without complications (2) Essential hypertension: Code(s): I10 - Essential (primary) hypertension Category: Medical (3) Hyperlipidemia LDL goal <70: Code(s): E78.5 - Hyperlipidemia, unspecified Category: Medical (4) Ear discomfort: Code(s): H92.09 - Otalgia, unspecified ear Category: Medical (5) Chronic GERD: Code(s): K21.9 - Gastro-esophageal reflux disease without esophagitis Category: Medical Plan Plan 1. Type 2 Diabetes Mellitus The patient's recent hemoglobin A1c of 6.3% is at goal. The plan is to continue the current dosage of metformin 1,000 mg twice daily. 2. Hypertension The patient's blood pressure is noted to be well-controlled. He will continue taking lisinopril 2.5 mg daily. 3. Hyperlipidemia The current treatment is effective. The patient will continue taking atorvastatin 40 mg. 4. Auditory Distortion The patient complains of auditory distortion in both ears. An otoscopic exam revealed a small amount of cerumen. No further management was discussed at this visit. 5. Health Maintenance The patient is up-to-date on his influenza vaccine, which was administered in January. His last Cologuard screening was in 2019. The patient is scheduled for a follow-up appointment in July. He also has a scheduled appointment with urology in July. Orders: Orders AMB Hemoglobin A1c Today E11.9 - Type 2 diabetes mellitus without complications Vitamin D 25-OH Total 4 Months E55.9 - Vitamin D deficiency, unspecified Vitamin B12 and Folate 4 Months E53.8 - Deficiency of other specified B group vitamins Lipid Panel 4 Months E78.5 - Hyperlipidemia, unspecified Microalbumin, Random (w Creat) 4 Months R80.9 - Proteinuria, unspecified Comprehensive Hertel. Panel Fast 4 Months E11.9 - Type 2 diabetes mellitus without complications Referrals Cologuard Test Z12.11 - Encounter for screening for malignant neoplasm of colon, Z12.12 - Encounter for screening for malignant neoplasm of rectum Ear/Nose/Throat Referral H92.09 - Otalgia, unspecified ear
[2025-03-22 14:52] VITALS: BP 132/62; PULSE 84; TEMP 36.3; O2SAT 96; BMI 23.9
--- OUTSIDE RECORDS SUMMARY | 2025-03-22 16:16 | XMS_ITS | Encounter Summary ---
Author Organization [employer] Address [address] [facility] [address] [place] [address] Care Team Providers Care Academic Affairs Vice President Name Role Phone Unavailable Primary Care Provider Unavailabl e Encounter Details Date Type Department Care Team (Latest Contact Info) Description 03/31/2020 Abstract [facility] CONVERSIONS Dental, Provider, DDS Social History Tobacco [...] Care Team (Late st Contact Info) Description 04/04/2025 3:00 PM EST Office Visit [facility] ADULT DENTAL [address] [place] [address] Eduardo Ghotra, DMD [address] [place] [address] documented as of this encounter Visit Diagnoses Not on filedocumented in this encounter
--- OUTSIDE RECORDS SUMMARY | 2025-03-22 16:16 | XMS_ITS | Clinical Summary ---
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 Active metFORMIN (Glucophage) 1000 MG tablet 3 Active traMADol (Ultram) 50 MG tablet Take 50 mg by mouth every 6 (six) hours if needed. 3 Active pantoprazole (ProtoNix) 40 MG EC tablet Take 1 tablet by mouth Once per day. Active omeprazole (PriLOSEC) [address] capsule Take 20 mg by mouth Once per day. Active naproxen (Naprosyn) 500 MG tablet Take 1 tablet by mouth if needed in the morning and at bedtime for pain. 5 Active lisinopril 2.5 MG tablet Take 1 tablet by mouth Once per day. 5 Active Trulicity 0.75 MG/0.5ML solution auto-injector INJECT 0.75 MG (0.5 ML) SUBCUTANEOUSLY EVERY WEEK FOR 90 DAYS 5 Active D3 Super Strength 50 MCG (2000 UT) capsule Take 1 capsule by mouth Once per day. 5 Active atorvastatin (Lipitor) 40 MG tablet Take 40 mg by mouth Once per day. Active Active Problems Problem Noted Date Diagnosed Date Dental caries 02/25/2025 Open fracture of tooth 02/25/2025 Colon cancer screening 01/24/2025 Left upper quadrant pain 01/24/2025 Proteinuria 08/18/2020 Polyuria 08/18/2020 Chronic low back pain 03/31/2013 Gastroesophageal reflux disease 05/18/2012 Irritable bowel syndrome 05/18/2012 Tobacco dependence syndrome 05/18/2012 Major depressive disorder 02/28/2012 Encounters Date Type Department Care Team Description 02/25/2025 9:30 AM EDT Office Visit [facility] ADULT DENTAL [address] [place] [address] Ismael Erickson DDS Dental caries (Primary Dx); Open fracture of tooth, sequela 02/18/2025 Travel 01/24/2025 10:00 AM EDT Office Visit [facility] ADULT DENTAL [address] [place] [address] Eduardo Ghotra DMD 01/19/2025 Travel 12/20/2024 Travel from Last 3 Months Social History Tobacco Use Types Packs/Day Years [...] Sign Reading Time Taken Comments Blood Pressure 150/78 02/25/2025 9:27 AM EDT Pulse 68 09/20/2024 8:05 AM EDT Temperature - - Respiratory Rate - - Oxygen Saturation - - Inhaled Oxygen Concentration - - Weight - - Height - - Body Mass Index - - Plan of Treatment Upcoming Encounters Date Type Department Care Team (Late st Contact Info) Description 04/04/2025 3:00 PM EST Office Visit [facility] ADULT DENTAL [address] [place] [address] Eduardo Ghotra, DMD [address] [place] [address] Health Maintenance Due Date Last Done Comments CT Colonography 1965 Colonoscopy 1965 Colorectal Cancer Screening 1965 Dental Prophylaxis 1965 Depression Screening 1965 FIT DNA/Cologuard 1965 FIT 1965 FOBT 1965 HIV Screening 1965 Lipid Panel 1965 SDOH Screening 1965 Sigmoidoscopy 1965 Disability Screening 1965 Alcohol/Substance Use Screening 1977 Hepatitis C Screening 11/09/1983 Pneumococcal Vaccine: 50+ Years (2 of 2 - PCV) 02/05/2019 02/05/2018 Dental X-Ray: Full Mouth 03/18/2020 03/17/2017 Dental Oral Exam 09/29/2020 03/31/2020, , 03/17/2017, Additional history exists Dental X-Ray: Bitewings 10/10/2023 10/09/19 23, 03/31/2020, 03/02/2018, Additional history exists COVID-19 Vaccine ( season) 2025 12/18/2021, 05/01/2021, 09/25/2020, Additional history exists Tobacco Screening 02/25/2026 02/25/2025 DTaP/Tdap/Td Vaccines (3 - Td or Tdap) 07/13/2032 07/13/2022, 03/31/2013, 09/11/2006 RSV Patients and Patients Aged 60 years or older (1 - 1-dose 75+ series) 2040 Hepatitis A Vaccines Aged Out 02/04/2008, 09/02/19 08 No longer eligible based on patient's age to complete this topic Hepatitis B Vaccines Completed 02/04/2008, 10/15/2007, 09/02/2007 Zoster Vaccines Completed 05/19/2022, 09/14/2021 Influenza Vaccine Completed 02/07/2025, , 02/17/2023, Additional history exists HIB Vaccines Aged Out No longer eligi ble based on patient's age to complete this topic HPV Vaccines Aged Out No longer eligi ble based on patient's age to complete this topic IPV Vaccines Aged Out No longer eligi ble based on patient's age to complete this topic Meningococcal B Vaccine Aged Out No l onger eligible based on patient's age to complete [...] Procedure Name Priority Date/Time Associated Diagnosis Comments CASE PRESENTATION, DETAILED AND EXTENSIVE TREATMENT PLANNING Routine 02/25/2025 9:30 AM EDT 27 EXTRACTION, ERUPTED TOOTH REQ REMOVAL OF BONE AND/OR SECTIONING OF TOOTH Routine 02/25/2025 9:30 AM EDT CASE PRESENTATION, DETAILED AND EXTENSIVE TREATMENT PLANNING Routine 01/24/2025 10:00 AM EDT INTRAORAL - PERIAPICAL FIRST RADIOGRAPHIC IMAGE Routine 01/24/2025 10:00 AM EDT PALLIATIVE (EMERGENCY) TREATMENT OF DENTAL PAIN - MINOR PROCEDURE Routine 01/24/2025 10:00 AM EDT BITEWING - SINGLE RADIOGRAPHIC IMAGE Routine 10/08/2022 9:30 AM EDT Necrosis of dental pulp PERIODIC ORAL EVALUATION - ESTABLISHED PATIENT Routine 03/31/2020 12:00 AM EST INTRAORAL - COMPLETE SERIES OF RADIOGRAPHIC IMAGES Routine 03/17/2017 12:00 AM EST from Last 3 Months or Most Recently Relevant to Health Maintenance Insurance [facility]
--- OUTSIDE RECORDS SUMMARY | 2025-03-22 16:16 | XMS_ITS | Patient Health Record ---
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 Phone Chary Fuentes Primary Care Provider UnavailJared Lainez Jr Unavailable [phone] Reason For Referral No Information Medications Medication [...] Status Risk Notes Problem Colon cancer screening (377491853) Colon cancer screening (Z12.11) Active confirmed Problem Left upper quadrant pain (966887896) Left upper quadrant pain (R10.12) Active confirmed Plan Of Treatment Future Test Test Name Order Date UPPER GI ENDOSCOPY 01/24/2016 COLONOSCOPY 01/24/2016 Insurance Providers Payer Name Payer Address Payer Phone Subscriber Number Group Number Insured Name Patient Relationship to Insured Coverage Start Date Coverage End Date MEDICARE OF [place] [address] [place]HU [id number] MEHUL HARRISON Self - patient is the insured MEDICAID OF [facility] [address] [place] [id number] [id number] MEHUL HARRISON Self - patient is the [...]
== END 2025-03-22 15:18 | disposition home or self-care (01) ==
LOC: HO.HMCH 14:34
PROVIDERS: PCP Internal Medicine; Visit Provider Internal Medicine
DX: E11.9 Type 2 diabetes mellitus without complications (principal); I10 Essential (primary) hypertension; E78.5 Hyperlipidemia, unspecified; H92.09 Otalgia, unspecified ear; K21.9 Gastro-esophageal reflux disease without esophagitis

== ENCOUNTER → 2025-03-22 14:33 | Outpatient (BNVA) | payer OTHER, SELFPAY | PROVIDERS: PCP Internal Medicine; Visit Provider Internal Medicine | DX: E11.9 Type 2 diabetes mellitus without complications (principal); E78.5 Hyperlipidemia, unspecified; I10 Essential (primary) hypertension; H92.09 Otalgia, unspecified ear; K21.9 Gastro-esophageal reflux disease without esophagitis; Z79.84 Long term (current) use of oral hypoglycemic drugs | CPT/HCPCS: 83036; 99212 ==